=== PATIENT | female | born 1955 | race Caucasian/White ===

== ENCOUNTER 2020-01-03 11:47 | Outpatient (REF) | payer MEDICARE, MEDICAID, SELFPAY ==
[2020-01-03 13:27] LABS: Basophils Percent Auto 0.2 % (0-2); Eosinophils Percent Auto 0.5 % (0-4); Hematocrit 43.3 % (37-47); Hemoglobin 15.4 g/dl (12.0-16.0); Imm Gran Abs Auto 0.03 X10*3/uL (0.00-0.03); Imm Gran Pct Auto 0.3 % (0.0-0.4); Lymphocytes Absolute Auto 2.6 X10*3/uL (1.2-4.9); Lymphocytes Percent Auto 29.9 % (20-40); MANUAL DIFF FLAG NO; Mean Corpuscular HGB Conc 35.6 g/dl (31.0-35.0); Mean Corpuscular Hemoglobin 31.5 pg (27.0-33.0); Mean Corpuscular Volume 88.5 fL (80-98); Mean Platelet Volume 9.6 fL (9.4-12.3); Monocytes Absolute Auto 0.5 X10*3/uL (0.1-1.2); Monocytes Percent Auto 5.7 % (2-11); Neutrophils Absolute Auto 5.6 X10*3/uL (2.0-8.3); Neutrophils Percent Auto 63.4 % (45-73); Platelet Count 341 X10*3/uL (160-400); Red Blood Count 4.89 X10*6/uL (4.20-5.50); Red Cell Distribution Width 12.9 % (11.0-16.0); White Blood Count 8.8 X10*3/uL (4.8-10.8)
[2020-01-03 14:09] LABS: Alanine Aminotransferase 27 U/L (0-31); Albumin Level 4.5 g/dL (3.5-5.0); Alkaline Phosphatase 66 U/L (39-117); Anion Gap 14 (12-20); Aspartate Amino Transferase 25 U/L (5-31); Bilirubin Total 0.5 mg/dL (0.0-1.0); Blood Urea Nitrogen 16 mg/dL (9-16); Calcium 9.7 mg/dL (8.4-10.2); Carbon Dioxide 25 mmol/L (22-29); Chloride 101 mmol/L (96-108); Estimated Glomerular Filt Rate 57; Glucose Random 97 mg/dL (60-115); Iron 101 mcg/dL (30-160); Percent Iron Saturation 38 % (15-50); Potassium 3.8 mmol/l (3.3-5.1); Sodium 136 mmol/L (135-145); Total Iron Binding Capacity 269 mcg/dL (228-428); Unsaturated Iron Binding 168 ug/dL
[2020-01-03 14:24] LABS: Vitamin B12 612 pg/mL (200-900)
[2020-01-03 14:33] LABS: Ferritin 200 ng/mL (10-250); Thyroid Stimulating Hormone 0.75 uIU/mL (0.32-4.0); Vitamin D 25-OH Total 49.2 ng/mL (>30)
== END 2020-01-03 11:48 | disposition home or self-care (01) ==
LOC: HO.MANLDS 11:47
PROVIDERS: PCP Internal Medicine; Referring Provider Internal Medicine Gastroenterology; Visit Provider Internal Medicine
DX: R53.83 Other fatigue (principal)
CPT/HCPCS: 36415; 80053; 82306; 82607; 82728; 83540; 84436; 84443; 85025

== ENCOUNTER 2020-02-07 14:56 | Outpatient (REF) | payer MEDICARE, MEDICAID, SELFPAY ==
[2020-02-07 19:16] LABS: Hematocrit 40.2 % (37-47); Hemoglobin 14.5 g/dl (12.0-16.0); Mean Corpuscular HGB Conc 36.1 g/dl (31.0-35.0); Mean Corpuscular Hemoglobin 31.7 pg (27.0-33.0); Mean Platelet Volume 9.9 fL (9.4-12.3); Platelet Count 372 X10*3/uL (160-400); Red Blood Count 4.57 X10*6/uL (4.20-5.50); White Blood Count 7.1 X10*3/uL (4.8-10.8)
[2020-02-07 19:26] LABS: Alanine Aminotransferase 23 U/L (0-31); Albumin Level 4.2 g/dL (3.5-5.0); Alkaline Phosphatase 68 U/L (39-117); Anion Gap 12 (12-20); Aspartate Amino Transferase 21 U/L (5-31); Bilirubin Total 0.3 mg/dL (0.0-1.0); Blood Urea Nitrogen 20 mg/dL (9-16); Calcium 9.3 mg/dL (8.4-10.2); Carbon Dioxide 29 mmol/L (22-29); Chloride 99 mmol/L (96-108); Estimated Glomerular Filt Rate 55; Glucose Random 110 mg/dL (60-115); Iron 84 mcg/dL (30-160); Percent Iron Saturation 32 % (15-50); Potassium 3.3 mmol/l (3.3-5.1); Sodium 137 mmol/L (135-145); Total Iron Binding Capacity 262 mcg/dL (228-428); Total Protein 6.8 g/dL (6.5-8.0); Unsaturated Iron Binding 178 ug/dL
[2020-02-07 19:48] LABS: Ferritin 181 ng/mL (10-250); Free T4 (Free Thyroxine) 1.01 ng/dL (0.71-1.85); Thyroid Stimulating Hormone 1.18 uIU/mL (0.32-4.0)
[2020-02-07 20:01] LABS: Folate 14.6 ng/mL (> or = 4.0); Vitamin B12 512 pg/mL (200-900)
[2020-02-07 20:34] LABS: Erythrocyte Sedimentation Rate 4 MM/HR (0-20)
== END 2020-02-07 14:57 | disposition home or self-care (01) ==
LOC: HO.MANLDS 14:56
PROVIDERS: PCP Internal Medicine; Visit Provider Internal Medicine
DX: R53.83 Other fatigue (principal)
CPT/HCPCS: 36415; 80053; 82607; 82728; 82746; 83540; 84439; 84443; 85027; 85652

== ENCOUNTER → 2020-03-06 09:09 | Outpatient (REF) | payer MEDICARE, MEDICAID, SELFPAY ==
--- NOTE | 2020-03-06 09:30 | CA_ITS ---
Transthoracic Echocardiogram Patient (Last, First, Middle): Esme Alfonso, Gender: Female Date of : 1955 Age: 64 Procedure Date: 03/06/2020 Procedure Type: Transthoracic Echocardiogram Location: OP Height: 177.8 cm Weight: 72.58 kg BSA: 1.90 m2 Heart Rate: bpm BP: 118 / 60 mmHg Synchronous Motor Assembler: Referring MD: Neptali Amador MD Symptoms: DYSPNEA ON EXERTION R06.9 Study Quality: Fair ECG Rhythm: Sinus Conclusions: - The left ventricular systolic function is hyperdynamic. The visually estimated ejection fraction is >70%. - No obvious valvular pathology seen on this study. Findings Left Ventricle Normal left ventricular cavity size. There is mildly increased left ventricular wall thickness. The left ventricular systolic function is hyperdynamic. The visually estimated ejection fraction is >70%. There is no evidence of regional wall motion abnormalities. E/E prime ratio is between 8 and 15 consistent with indeterminate filling pressures. Evidence suggests grade I (mild) diastolic dysfunction. Right Ventricle Normal right ventricular cavity size and systolic function. Atria The left atrium is normal in size. The right atrium is normal in size. Aortic Valve There is a normal trileaflet aortic valve. There is no aortic valve stenosis. There is no aortic valve regurgitation. Mitral Valve The mitral valve appears normal. There is no mitral valve regurgitation. There is no mitral valve stenosis. Pulmonic Valve The pulmonic valve was not well visualized. Tricuspid Valve Normal tricuspid valve structure. There is trace tricuspid valve regurgitation. The pulmonary artery systolic pressure is normal. Great Vessels The aortic annulus, sinuses of valsalva, and asc aorta are normal in size. Venous The inferior vena cava is normal in size and collapses greater than 50% with inspiration. Pericardium/Pleural There is no evidence of pericardial effusion. Prior Study Comparison No significant change compared to prior study dated: 07/17/2016. Recommendations, Care & Conclusions No obvious valvular pathology seen on this study. Measurements 2D Linear Measurements IVSd: 1.32 0.6-0.9/0.6-1.0 cm LVIDd: 3.05 3.9-5.3/4.2-5.9 cm LVIDd Index: 1.61 2.4-3.2/2.2-3.1 cm/m2 LVIDs: 2.03 2.0-3.6 cm LVPWd: 1.30 0.7-1.1 cm Ao Root: 3.20 2.1-3.5 cm LA Diam: 2.60 2.7-3.8/3.0-4.0 cm LAIDs Index: 1.37 1.5-2.3 cm/m2 LV Mass: 160.07 67-162/88-224 g LV Mass Index: 84.25 43-95/49-115 g/m2 LVOT Diam: 2.30 3.0+(-)1.3 cm 2D Systolic Function EF 4C: 77.50 >55% EF 2C: 72.60 >55% Mitral Valve MV Pk E: 0.52 MV PK A: 1.24 MV Decel Time: 144.00 E/A: 0.40 E'Lateral: 5.13 E'Medial: 4.64 E/E' Med: 11.30 E/E' Lat: 10.20 PHT: 42.00 MVA PHT: 5.24 Decel Butts: 3.63 Aortic Valve AoV Pk Charan: 1.13 AoV Mn Charan: 0.74 AoV VTI: 0.20 AoV Pk Grad: 5.00 Aov Mn Grad: 3.00 JED Cont.VTI: 3.96 LVOT LVOT Pk Charan: 0.96 LVOT Mn Charan: 0.63 LVOT VTI: 0.19 LVOT Pk Grad: 4.00 LVOT Mn Grad: 2.00 LVOT Diam: 2.30 LVOT Area: 4.15 Diastolic Function MV Pk E: 0.52 MV Pk A: 1.24 E/A: 0.40 E'Medial: 4.64 E/E' Med: 11.30 E' Laterial: 5.13 E/E' Lat: 10.20 Tricuspid Valve TR Pk Charan: 2.06 TR Pk Grad: 17.00 RA Press: 3.00 RVSP: 20.00 Great Vessels Aorta Ao Root-2D: 3.20 2.0-3.7 cm Ao Asc: 3.30 2.1-3.4 cm Pulmonary Valve PV Pk Charan: 0.87 Peak PV Grad: 3.00 Updated in Other Vendor System with Status of Final Marshall Arguello MD electronically signed on 03/06/2020 12:27:18 PM with status of Final
== END ==
LOC: HO.CARD 09:09
PROVIDERS: Visit Provider Internal Medicine
DX: R06.00 Dyspnea, unspecified (principal)
CPT/HCPCS: 93306

== ENCOUNTER 2020-03-08 13:49 | Outpatient (REF) | payer MEDICARE, MEDICAID, SELFPAY ==
--- NOTE | 2020-03-08 | MR_ITS ---
MRI OF THE BRAIN WITHOUT IV CONTRAST INDICATION: New daily persistent headache. COMPARISON: None available. TECHNIQUE: Multiplanar multisequence MR imaging of the brain was obtained without IV contrast. FINDINGS: There is no hydrocephalus, extra-axial surface collection, or herniation. There is mild chronic microangiopathy. Perivascular spaces throughout the supratentorial white matter. 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 The major flow voids at the skull base are preserved. Infundibulum versus aneurysm at the left anterior cerebral artery/anterior communicating artery junction that would be better assessed with a MRA of the head. There is no acute infarct on diffusion-weighted imaging. There is no intracranial hemorrhage on the gradient recalled echo acquisition. The midline structures are normal. The cerebellar tonsils are normally positioned. The craniocervical junction is normal. Osseous marrow signal intensity is homogenous. The visualized soft tissues are unremarkable. MR/MR head/brain wo con IMPRESSION: - Infundibulum versus aneurysm at the left anterior cerebral artery/anterior communicating artery junction that would be better assessed with a MRA of the head. - No acute intracranial findings. - Mild chronic microangiopathy. 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
== END 2020-03-08 13:50 | disposition home or self-care (01) ==
LOC: HO.MRI 13:49
PROVIDERS: PCP Internal Medicine; Visit Provider Internal Medicine
DX: G44.52 New daily persistent headache (NDPH) (principal)
CPT/HCPCS: 70551

== ENCOUNTER 2020-03-24 10:48 | Outpatient (REF) | payer MEDICARE, MEDICAID, SELFPAY ==
--- NOTE | ~2020-03-24 | MR_ITS ---
EXAMINATION: MR ANGIOGRAPHY BRAIN WITHOUT CONTRAST CLINICAL INFORMATION: Possible aneurysm versus infundibulum left anterior cerebral artery circulation. COMPARISON: 03/08/2020 MRI brain. TECHNIQUE: 3-D [id number] MR angiography of the intracranial circulation was done. FINDINGS: Anterior Circulation: The intracranial internal carotid arteries are normal in caliber and smoothly contoured. The M1 and M2 segments are normal in caliber with a normal appearance to the MCA bifurcations/trifurcations bilaterally and candelabra branches. There is minimal luminal irregularity in the distal right M1 segment and in the mid to distal left M1 segment suggesting minimal atheromatous disease. The right A1 and A2 segments are patent with mild luminal irregularity in both segments. The anterior communicating artery is visualized and appears within normal limits. Note is made of a 2.5 mm outpouching of flow-related enhancement along the inferolateral aspect of the proximal left A2 segment at the junction with the A1 segment and anterior to indicating artery suggesting a small aneurysm at this location. Otherwise the left A1 and A2 segments appear unremarkable. Posterior Circulation: The V4 segments of the vertebral arteries are codominant and normal in caliber and smoothly contoured bilaterally. The basilar artery is normal in caliber with minimal luminal irregularity. A right posterior-inferior cerebellar artery is visualized as well as to anterior inferior cerebellar arteries and both superior cerebellar arteries. The P1, P2 and P3 segments of the animal pathology teacher are visualized bilaterally, with some luminal irregularity in the P2 and P3 segments. The right posterior communicating artery is visualized. The left posterior communicating artery is not well visualized. MR/MR angio head wo con IMPRESSION: 1. 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 2. No other aneurysms are identified. There are scattered regions of segmental luminal irregularity in the middle and anterior cerebral and posterior cerebral artery circulations suggesting minimal atheromatous changes.
== END 2020-03-24 10:49 | disposition home or self-care (01) ==
LOC: HO.MRI 10:48
PROVIDERS: Visit Provider Internal Medicine
DX: I67.1 Cerebral aneurysm, nonruptured (principal)
CPT/HCPCS: 70544

== ENCOUNTER 2020-05-10 09:26 | Outpatient (REF) | payer MEDICARE, MEDICAID, SELFPAY ==
--- NOTE | ~2020-05-10 | CT_ITS ---
EXAMINATION: CT ABDOMEN AND PELVIS WITH CONTRAST CLINICAL INFORMATION: Gastroenteritis and colitis COMPARISON: Previous CT of the abdomen and pelvis June 2019 TECHNIQUE: Multidetector volumetric images were obtained from the superior aspect of the liver through the pubic symphysis following administration 85 mL of Omnipaque 350 intravenous contrast. Sagittal and coronal reformatted images were obtained on the technologist's workstation. Oral contrast: Yes This CT examination was performed using dose optimization techniques as appropriate, variously including the following: *Automated exposure control *Adjustment of mA and/or kV according to patient size (this includes techniques or standardized protocols for targeted exams where dose is matched to indication/reason for exam; i.e. extremities or head) *Use of iterative reconstruction technique DLP: 710 mGy-cm FINDINGS: LUNG BASES: The visualized lung bases are clear. There is a small left posterior diaphragmatic hernia containing fat. LIVER, GALLBLADDER, AND BILIARY TREE: The liver is normal in size, shape, and attenuation. No focal hepatic lesion or biliary ductal dilatation is present. The gallbladder is unremarkable with no evidence of radiopaque gallstones, gallbladder wall thickening, or obvious pericholecystic inflammatory changes. PANCREAS: Unremarkable. SPLEEN: Unremarkable. ADRENAL GLANDS: Unremarkable. KIDNEYS AND URETERS: There are multiple left renal cortical and peripelvic cysts. The largest is a 2 x 3 cm peripelvic cyst. There is a 1.6 x 1 cm lesion in the lateral mid pole of the left kidney. Hounsfield units following IV contrast measure 90 not compatible with a simple cyst. It is uncertain whether this represents a complex cyst or solid lesion. There is a second more posterior inferior adjacent bilobed appearing cyst that measures 1.7 x 3 cm. This is Hounsfield units measure 30 without contrast also not compatible with a simple cyst. Compared with previous exams from 2019 and 2015 these vary in size and attenuation which would favor complex cysts. There are small subcentimeter right renal cysts. BLADDER: Not optimally distended and not well evaluated. GASTROINTESTINAL TRACT: There is stool throughout the colon questionable for constipation. Wall and large bowel is otherwise unremarkable. No evidence of colitis or enteritis is seen. The appendix is not identified. The stomach is unremarkable ABDOMINAL WALL: No significant hernia is appreciated. LYMPH NODES: Normal. VASCULAR: Unremarkable. PELVIC VISCERA: The uterus is been removed. No pelvic mass is seen. OSSEOUS STRUCTURES: Unremarkable. CT/CT abdomen pelvis w con IMPRESSION: No evidence of colitis or enteritis. Stool throughout the colon questionable for constipation. Bilateral renal cysts, left greater than right. Two left renal lesions not compatible with simple cysts. These can be seen on prior exams from 2015 and 2019 and vary in attenuation which would favor a complex cyst. This could be further evaluated with repeat CT or MRI of the kidneys with and without contrast. This could also be evaluated with ultrasound, however this may be difficult due to the multiple left renal cysts.
[2020-05-10 10:48] LABS: Alanine Aminotransferase 22 U/L (0-31); Albumin Level 4.3 g/dL (3.5-5.0); Alkaline Phosphatase 63 U/L (39-117); Anion Gap 16 (12-20); Aspartate Amino Transferase 22 U/L (5-31); Bilirubin Total 0.8 mg/dL (0.0-1.0); Blood Urea Nitrogen 25 mg/dL (9-16); Calcium 9.3 mg/dL (8.4-10.2); Carbon Dioxide 26 mmol/L (22-29); Chloride 102 mmol/L (96-108); Estimated Glomerular Filt Rate 54; Glucose Random 95 mg/dL (60-115); Potassium 3.5 mmol/L (3.3-5.1); Sodium 140 mmol/L (135-145); Total Protein 6.8 g/dL (6.5-8.0)
[2020-05-10] MEDS: Barium Sulfate Oral (Vanilla) 450 ML ORAL.SUSP 900 ML PO (12:53)
== END 2020-05-10 09:27 | disposition home or self-care (01) ==
LOC: HO.CT 09:26
PROVIDERS: PCP Internal Medicine; Visit Provider Physician Assistant
DX: K52.9 Noninfective gastroenteritis and colitis, unspecified (principal)
CPT/HCPCS: 36415; 74177; 80053; Q9967

== ENCOUNTER 2020-08-01 10:56 | Outpatient (REF) | payer MEDICARE, MEDICAID, SELFPAY ==
--- NOTE | ~2020-08-01 | CT_ITS ---
EXAMINATION: CT ABDOMEN AND PELVIS WITHOUT AND WITH CONTRAST CLINICAL INFORMATION: Abdominal discomfort, question colitis or diverticulitis or pancreatitis. COMPARISON: None TECHNIQUE: Multidetector volumetric imaging was performed of the abdomen and pelvis before and after the IV administration of 85 mL of Omnipaque 350 intravenous contrast. Sagittal and coronal reformatted images were obtained on the technologist's workstation. This CT examination was performed using dose optimization techniques as appropriate, variously including the following: *Automated exposure control *Adjustment of mA and/or kV according to patient size (this includes techniques or standardized protocols for targeted exams where dose is matched to indication/reason for exam; i.e. extremities or head) *Use of iterative reconstruction technique DLP: 814 mGy-cm FINDINGS: LUNG BASES: There is minimal atelectatic changes in both lung bases. The heart size is normal. LIVER, GALLBLADDER, AND BILIARY TREE: The liver is normal in size, shape, and attenuation. No focal hepatic lesion or biliary ductal dilatation is present. The gallbladder is unremarkable with no evidence of radiopaque gallstones, gallbladder wall thickening, or obvious pericholecystic inflammatory changes. PANCREAS: Unremarkable. SPLEEN: Unremarkable. ADRENAL GLANDS: Unremarkable. KIDNEYS AND URETERS: The kidneys are normal in size, shape, and attenuation. No hydronephrosis, hydroureter, or calculi seen. No perinephric stranding. There are bilateral renal cysts. There are peripelvic and exophytic cysts in the left kidney. On the precontrast, there is a hypodense 1.5 cm cyst midpole left kidney image 24/3. Postcontrast, it measures 93 Hounsfield units. It is consistent with a complex cyst. BLADDER: Unremarkable. GASTROINTESTINAL TRACT: There is moderate scattered stool and gas seen throughout the colon without any significant distention. The small bowel loops are normal caliber. The appendix is not visualized. ABDOMINAL WALL: No significant hernia is appreciated. LYMPH NODES: There are small shotty left para-aortic lymph nodes. The largest triangular-shaped lymph node measures 1.4 cm axial image 24/4. VASCULAR: Unremarkable. PELVIC VISCERA: There is diffuse sigmoid diverticulosis without mural thickening or pericolic fat stranding. No free air or free fluid seen. OSSEOUS STRUCTURES: No lytic or sclerotic process seen. There is a disc bulge osteophyte complex L2-L3 disc level slightly eccentric to the left. CT/CT abdomen pelvis wo/w con IMPRESSION: No acute intra-abdominal process seen. Sigmoid diverticulosis without diverticulitis. Mild constipation. Bilateral renal cysts. There is a hyperdense enhancing cyst midpole cortex laterally left kidney likely a complex cyst.
[2020-08-01 12:42] LABS: Alanine Aminotransferase 17 U/L (0-31); Albumin Level 4.2 g/dL (3.5-5.0); Alkaline Phosphatase 72 U/L (39-117); Anion Gap 17 (12-20); Aspartate Amino Transferase 18 U/L (5-31); Bilirubin Total 0.5 mg/dL (0.0-1.0); Blood Urea Nitrogen 16 mg/dL (9-16); Calcium 9.3 mg/dL (8.4-10.2); Carbon Dioxide 21 mmol/L (22-29); Chloride 104 mmol/L (96-108); Estimated Glomerular Filt Rate 55; Glucose Random 83 mg/dL (60-115); Potassium 3.8 mmol/L (3.3-5.1); Sodium 138 mmol/L (135-145); Total Protein 6.8 g/dL (6.5-8.0)
[2020-08-01] MEDS: iohexoL 350 MG/ML 100 ML INFUS..BTL 85 ML IV (14:41)
== END 2020-08-01 10:57 | disposition home or self-care (01) ==
LOC: HO.CT 10:56
PROVIDERS: PCP Internal Medicine; Visit Provider Internal Medicine
DX: R10.9 Unspecified abdominal pain (principal); K52.9 Noninfective gastroenteritis and colitis, unspecified
CPT/HCPCS: 36415; 74178; 80053; Q9967

== ENCOUNTER 2020-11-11 19:04 | Emergency (ER) | payer MEDICARE, MEDICAID, SELFPAY ==
[2020-11-11 19:20] VITALS: BP 132/94; PULSE 91; RESP 18; TEMP 36.7; O2SAT 94; BMI 22.3
[2020-11-11 19:38] LABS: Appearance Urine CLOUDY; Color Urine YELLOW; Glucose Urine UA NEG (NEG); Leukocyte Esterase Urine 3+ (NEG); Nitrite Urine NEG (NEG); PH 6.5 (5.0-8.0); Specific Gravity - Urine 1.015 (1.005-1.025); UACC Culture Trigger YES; Urine Blood 3+ (NEG); Urine Ketones NEG (NEG); Urine Protein 2+ MG/DL (NEG-TRACE)
--- NOTE | 2020-11-11 19:40 | ED.FEMALEGU ---
HPI - Female Genitourinary General Chief complaint: Urogenital-Female Stated complaint: ?UTI Time Seen by Provider: 11/11/20 19:40 Source: patient Mode of arrival: ambulatory Limitations: no limitations History of Present Illness HPI Narrative: Patient complaining of dysuria suprapubic pain frequency last 24 hours when she wiped she noticed blood-tinged no fever no chills no nausea no vomiting history of UTI in the past but not recently no history Related Data Previous Rx's Medication Instructions Recorded cefuroxime axetil 500 mg tablet 500 mg PO BID 7 Days #14 tab 11/11/20 phenazopyridine 200 mg tablet 200 mg PO TID 2 Days #5 tab 11/11/20 (Pyridium) Allergies Allergy/AdvReac Type Severity Reaction Status Date / Time No Known Allergies Allergy Verified 11/11/20 19:20 [No Known Allergies*] Review of Systems Review of Systems: Yes all other systems are reviewed and are negative PMFSH Past Medical History Medical History Anxiety Brain aneurysm Depression Hypertension Kidney cysts UTI (urinary tract infection) Surgical History Hx of tonsillectomy Social History Social History Advance Directives: No Advance Directives Information Provided: No Physical Exam Vital Signs: Vital Signs: Last Vital Signs Temp 98.0 F 11/11/20 19:20 Pulse 91 11/11/20 19:20 Resp 18 11/11/20 19:20 BP 132/94 H 11/11/20 19:20 Pulse Ox 94 11/11/20 19:20 Body Mass Index 22.3 Appearance: Alert. Oriented X3. No acute distress. ENT: Pharynx normal. Oral Mucosa moist Neck: Normal inspection. Neck supple. CVS: Normal heart rate and rhythm. Respiratory: No respiratory distress. Equal air entry bilateral, Abdomen: Soft and nontender. Bowel sounds are present, no mass palpable, no CVA tenderness Skin: Skin warm and dry. Normal skin color. Normal skin turgor. Neuro: Oriented X 3. MDM - Female Genitourinary Differential Diagnosis Differential diagnosis: Likely urinary tract infection Lab Data Attestation: I reviewed the patient's lab results. Labs: Lab Results 11/11/20 Range/Units 19:32 Urine Color YELLOW Urine Appearance CLOUDY Urine pH 6.5 (5.0-8.0) Ur Specific [place] 1.015 (1.005-1.025) Urine Protein 2+ H (NEG-TRACE) MG/DL Urine Glucose (UA) NEG (NEG) MG/DL Urine Ketones NEG (NEG) MG/DL Urine Blood 3+ H (NEG) Urine Nitrite NEG (NEG) Ur Leukocyte Esterase 3+ H (NEG) Urine RBC 76-150 H (0) /HPF Urine WBC 76-150 H (0-4) /HPF Ur Squamous Epith Cells TRACE /LPF Urine Bacteria NONE /LPF Discharge Plan Discharge Clinical Impression: Urinary tract infection Qualifiers: Urinary tract infection type: acute cystitis Hematuria presence: with hematuria Qualified Code(s): N30.01 - Acute cystitis with hematuria Patient Disposition: Home, Self-Care Instructions: Urinary Tract Infection in Women (ED) Additional Instructions: Drink Plenty of fluids take antibiotic as prescribed Report to PCP/ER if high fever/vomiting/flank pain Prescriptions: New cefuroxime axetil 500 mg tablet 500 mg PO BID 7 Days Qty: 14 RF: 0 phenazopyridine [Pyridium] 200 mg tablet 200 mg PO TID 2 Days Qty: 5 RF: 0
[2020-11-11 19:54] LABS: Squamous Epithelial Cell Urine TRACE /LPF
[2020-11-11] MEDS: Phenazopyridine HCL 200 MG TABLET PO (20:20)
== END 2020-11-11 20:23 | disposition home or self-care (01) ==
PROVIDERS: Emergency Provider Internal Medicine; PCP Internal Medicine
DX: N30.01 Acute cystitis with hematuria (principal); R30.0 Dysuria; Z79.899 Other long term (current) drug therapy
CPT/HCPCS: 81001; 87086; 87088; 87186; 99283

== ENCOUNTER 2021-06-19 14:43 | Emergency (ER) | payer MEDICARE, MEDICAID, SELFPAY ==
[2021-06-19 15:28] VITALS: BP 138/81; PULSE 97; RESP 18; TEMP 37.3; O2SAT 96; BMI 22.3
[2021-06-19 16:09] LABS: MANUAL DIFF FLAG NO
[2021-06-19 16:13] LABS: Appearance Urine HAZY; Color Urine YELLOW; Glucose Urine UA NEG (NEG); Leukocyte Esterase Urine 3+ (NEG); Nitrite Urine NEG (NEG); UACC Culture Trigger YES; Urine Blood 3+ (NEG); Urine Ketones NEG (NEG); Urine Protein TRACE MG/DL (NEG-TRACE)
[2021-06-19 16:14] LABS: Basophils Percent Auto 0.1 % (0-2); Eosinophils Absolute Auto 0.1 X10*3/uL (0.0-0.4); Eosinophils Percent Auto 0.8 % (0-4); Hematocrit 40.6 % (37.0-47.0); Hemoglobin 14.4 g/dl (12.0-16.0); Imm Gran Abs Auto 0.03 X10*3/uL (0.00-0.03); Imm Gran Pct Auto 0.3 % (0.0-0.4); Lymphocytes Absolute Auto 2.4 X10*3/uL (1.2-4.9); Lymphocytes Percent Auto 26.6 % (20-40); Mean Corpuscular HGB Conc 35.5 g/dl (31.0-35.0); Mean Corpuscular Hemoglobin 30.9 pg (27.0-33.0); Mean Corpuscular Volume 87.1 fL (80.0-98.0); Monocytes Absolute Auto 0.7 X10*3/uL (0.1-1.2); Monocytes Percent Auto 7.7 % (2-11); Neutrophils Absolute Auto 5.9 x10*3/uL (2.0-8.3); Neutrophils Percent Auto 64.5 % (45-73); Platelet Count 331 X10*3/uL (160-400); Red Blood Count 4.66 X10*6/uL (4.20-5.50); Red Cell Distribution Width 13.4 % (11.0-16.0); White Blood Count 9.1 X10*3/uL (4.8-10.8)
[2021-06-19 16:22] LABS: Bacteria Urine 1+ /LPF; Squamous Epithelial Cell Urine 1+ /LPF; WBC Urine TNTC /HPF (0-4)
[2021-06-19 16:24] LABS: Anion Gap 12 (12-20); Blood Urea Nitrogen 18 mg/dL (9-16); Calcium 9.7 mg/dL (8.4-10.2); Carbon Dioxide 29 mmol/L (22-29); Chloride 103 mmol/L (96-108); Creatinine Clr Calc Pharmacy 52.5; Estimated Glomerular Filt Rate 47; Glucose Random 111 mg/dL (60-115); Potassium 3.6 mmol/L (3.3-5.1); Sodium 140 mmol/L (135-145)
--- NOTE | 2021-06-19 20:44 | ED.FEMALEGU ---
HPI - Female Genitourinary General Chief complaint: Urogenital-Female Stated complaint: UTI Time Seen by Provider: 06/19/21 18:26 Source: patient Mode of arrival: ambulatory Limitations: no limitations History of Present Illness HPI Narrative: 65 y/o female with history of recurrent UTIs presents to the ER with acute onset of burning on urination that started today. She also has urinary frequency and urgency, bladder pain and subjective fever today. No nausea or vomiting. She has been drinking cranberry juice and taking tylenol today with minimal relief. She denies any back pain. MD elicited complaint: dysuria and UTI Pertinent past history: recurrent UTIs Onset (ago): hour(s) Location of symptoms: suprapubic Severity: moderate Female Urogenital Radiation: Suprapubic Severity scale (1-10): 6 Quality of pain: burning Consistency: intermittent Vaginal discharge: none Vaginal bleeding: none Urinary symptoms: Dysuria, Urgency, Frequency and Foul Smelling Urine Exacerbating factors: urination Relieving factors: none Associated symptoms: abdominal pain and fever Treatment prior to arrival: none Sexual activity: No Patient : No Related Data Previous Rx's Medication Instructions Recorded cefuroxime axetil 500 mg tablet 500 mg PO BID 7 Days #14 tab 11/11/20 phenazopyridine 200 mg tablet 200 mg PO TID 2 Days #5 tab 11/11/20 (Pyridium) cefuroxime axetil 500 mg tablet 500 mg PO BID 7 Days #14 tab 06/19/21 phenazopyridine 100 mg tablet 100 mg PO TID PRN #6 tab 06/19/21 (Pyridium) Allergies Allergy/AdvReac Type Severity Reaction Status Date / Time No Known Allergies Allergy Verified 06/19/21 15:27 [No Known Allergies*] Review of Systems Review of Systems: Constitutional: No Fever, No Chills Cardiovascular: No Chest Pain, No SOB Respiratory: No Cough, No Sputum Gastrointestinal: No Nausea, No Vomiting, No Diarrhea, + abdominal Pain Genitourinary: + Dysuria, + Urinary Frequency, No Hematuria Musculoskeletal: No joint pain, No Myalgias Skin: No Skin Lesions, No rash Heme/Lymph: No Lymphadenopathy PMFSH Past Medical History Medical History Anxiety Brain aneurysm Depression Hypertension Kidney cysts UTI (urinary tract infection) Surgical History Hx of tonsillectomy Social History Social History Advance Directives: No Advance Directives Information Provided: No Physical Exam Vital Signs: Vital Signs: Last Vital Signs Temp 99.2 F 06/19/21 15:28 Pulse 97 06/19/21 15:28 Resp 18 06/19/21 15:28 BP 138/81 06/19/21 15:28 Pulse Ox 96 06/19/21 15:28 BMI result Body Mass Index 22.3 Appearance: Alert. Oriented X3. No acute distress. HEENT: normal inspection CVS: Normal heart rate and rhythm. Pulses normal. Respiratory: No respiratory distress. Abd: soft, mild suprapubic tenderness, no rebound or guarding. normal BS. pelvic deferred Skin: Skin warm and dry. Normal skin color. Normal skin turgor. No rashes. Extremities: normal inspection x4. Neuro: Oriented X 3. Grossly normal, nonfocal Course Course Course Narrative: 65-year-old female with history recurrent UTIs presents to the ER for evaluation of dysuria, urgency, frequency that started today. Lab work reveals no leukocytosis. He UA is grossly positive for infection. She has history E coli sensitive to self low sports. Will treat with Ceftin and Pyridium. Stable for discharge home with p.o. antibiotics and outpatient follow-up. Patient agrees with plan. MDM - Female Genitourinary Lab Data Result diagrams: 06/19/21 16:05 06/19/21 16:05 Labs: Lab Results 06/19/21 06/19/21 06/19/21 Range/Units 16:05 16:05 16:05 WBC 9.1 (4.8-10.8) X10*3/uL RBC 4.66 (4.20-5.50) X10*6/uL Hgb 14.4 (12.0-16.0) g/dl Hct 40.6 (37.0-47.0) % MCV 87.1 (80.0-98.0) fL MCH 30.9 (27.0-33.0) pg MCHC 35.5 H (31.0-35.0) g/dl RDW 13.4 (11.0-16.0) % Plt Count 331 (160-400) X10*3/uL MPV 9.0 L (9.4-12.3) fL Immature Gran % (Auto) 0.3 (0.0-0.4) % Neut % (Auto) 64.5 (45-73) % Lymph % (Auto) 26.6 (20-40) % [place] % (Auto) 7.7 (2-11) % Eos % (Auto) 0.8 (0-4) % Baso % (Auto) 0.1 (0-2) % Lymph # (Auto) 2.4 (1.2-4.9) X10*3/uL [place] # (Auto) 0.7 (0.1-1.2) X10*3/uL Eos # (Auto) 0.1 (0.0-0.4) X10*3/uL Baso # (Auto) 0.0 (0.0-0.2) X10*3/uL Abs Immat Gran (auto) 0.03 (0.00-0.03) X10*3/uL Absolute Neuts (auto) 5.9 (2.0-8.3) x10*3/uL Absolute Nucleated RBC 0.000 (0.0-0.012) X10*3/uL Nucleated RBC % (auto) 0.0 (0.0-0.2) /100WBC Sodium 140 (135-145) mmol/L Potassium 3.6 (3.3-5.1) mmol/L Chloride 103 (96-108) mmol/L Carbon Dioxide 29 (22-29) mmol/L Anion Gap 12 (12-20) BUN 18 H (9-16) mg/dL Creatinine 1.16 (0.5-1.4) mg/dL Estim Creat Clear Calc 52.5 Estimated GFR 47 Random Glucose 111 (60-115) mg/dL Calcium 9.7 (8.4-10.2) mg/dL Urine Color YELLOW Urine Appearance HAZY Urine pH 6.0 (5.0-8.0) Ur Specific [place] 1.010 (1.005-1.025) Urine Protein TRACE (NEG-TRACE) MG/DL Urine Glucose (UA) NEG (NEG) MG/DL Urine Ketones NEG (NEG) MG/DL Urine Blood 3+ H (NEG) Urine Nitrite NEG (NEG) Ur Leukocyte Esterase 3+ H (NEG) Urine RBC 15-29 H (0) /HPF Urine WBC TNTC H (0-4) /HPF Ur Squamous Epith Cells 1+ /LPF Urine Bacteria 1+ /LPF Discharge Plan Discharge Clinical Impression: Urinary tract infection Patient Disposition: Home, Self-Care Instructions: Urinary Tract Infection in Older Adults (ED) Additional Instructions: Take the prescribed antibiotic as directed, complete the entire course Drink plenty of water and stay hydrate Take the prescribed Pyridium as needed for bladder pain - this will cause your urine to turn an orange color, that is normal If you develop new or worsening symptoms call 911 or come back to the ER for further evaluation. Prescriptions: New cefuroxime axetil 500 mg tablet 500 mg PO BID 7 Days Qty: 14 0RF phenazopyridine [Pyridium] 100 mg tablet 100 mg PO TID PRN (Reason: pain) Qty: 6 0RF No Action cefuroxime axetil 500 mg tablet 500 mg PO BID 7 Days Qty: 14 0RF phenazopyridine [Pyridium] 200 mg tablet 200 mg PO TID 2 Days Qty: 5 0RF Interventions: LWBS Worksheet Last Done: 06/19/21 18:36
[2021-06-19] MEDS: Phenazopyridine HCL 100 MG TABLET PO (20:52)
== END 2021-06-19 21:22 | disposition home or self-care (01) ==
PROVIDERS: Emergency Medicine; Emergency Provider Emergency Medicine; PCP Internal Medicine
DX: N39.0 Urinary tract infection, site not specified (principal); R30.0 Dysuria; R39.15 Urgency of urination; Z79.899 Other long term (current) drug therapy
CPT/HCPCS: 36415; 80048; 81001; 85025; 87086; 99283

== ENCOUNTER 2021-11-06 10:14 | Outpatient (REF) | payer MEDICARE, MEDICAID, SELFPAY ==
[2021-11-06 11:36] LABS: Creatinine Urine 84.58 mg/dL; Total Protein Urine Random < 7 mg/dL (<12)
== END 2021-11-06 10:15 | disposition home or self-care (01) ==
LOC: HO.LAB 10:14
PROVIDERS: PCP Internal Medicine; Visit Provider Internal Medicine Nephrology
DX: N28.1 Cyst of kidney, acquired (principal); N18.2 Chronic kidney disease, stage 2 (mild)
CPT/HCPCS: 84156

== ENCOUNTER 2022-09-01 12:13 | Emergency (ER) | payer MEDICARE, MEDICAID, SELFPAY ==
--- NOTE | ~2022-09-01 | XR_ITS ---
EXAMINATION: XR CHEST CLINICAL INFORMATION: Chest pain. COMPARISON: 03/06/2017 chest radiographs. TECHNIQUE: Frontal view of the chest was obtained. FINDINGS: No significant abnormality is noted involving the heart, lungs, mediastinum, bony thorax or soft tissues. XR/XR chest 1V IMPRESSION: No acute cardiopulmonary process.
--- NOTE | 2022-09-01 12:15 | ECG_ITS ---
Test Reason : CHEST PAIN Blood Pressure : / mmHG Vent. Rate : 072 BPM Atrial Rate : 072 BPM P-R Int : 186 ms QRS Dur : 092 ms QT Int : 406 ms P-R-T Axes : 049 048 070 degrees QTc Int : 444 ms Poor data quality, interpretation may be adversely affected Normal sinus rhythm Nonspecific ST abnormality Abnormal ECG When compared with ECG of 04-JUL-2019 00:42, No significant change was found Referred By: Serena Villareal Electronically Signed By:Rasta Herr
[2022-09-01 12:24] VITALS: BP 136/85; BP 148/96; PULSE 73; PULSE 84; RESP 18; TEMP 36.9; O2SAT 93; O2SAT 97; BMI 23.0
[2022-09-01 12:34] VITALS: O2SAT 96
--- NOTE | 2022-09-01 12:38 | PC.NURSE ---
pt a&ox3. skin warm pink and dry. respirations even and unlabored, lung sounds clear bilaterally. pt reports epigastric pain after eating that went into her chest, her left jaw and down her right arm. pt took aspirin per doctor request before ambulance arrived, pain subsided. no nausea or vomiting reported. pt now reports no pain. normal sinus on tele.
--- NOTE | 2022-09-01 12:41 | ED_ITS ---
HPI - Chest Pain General Chief Complaint: Chest Pain Stated Complaint: CHEST TO JAW PAIN X1 HR,ASA GIVEN PER EMS Time Seen by Provider: 09/01/22 12:14 Source: patient Mode of arrival: ambulatory History of Present Illness HPI narrative: 66-year-old female who arrives via EMS with burning chest pain that started while she was lying back on the couch reading after having had breakfast and states that the burning sensation radiated up into her left neck and then a crossed and down her right arm without associated headache, dizziness, nona phoresis, nausea, shortness of breath. Patient then states that pain resolved once she stood up and went to the bathroom and has not returned. Patient has no diagnosed medical conditions currently and remains asymptomatic at this time. She denies any recent fever, chills, nausea, vomiting, changes in medications and denies any dysuria. Related Data Previous Rx's Medication Instructions Recorded cefuroxime axetil 500 mg tablet 500 mg PO BID 7 days #14 tabs 11/11/20 phenazopyridine 200 mg tablet 200 mg PO TID pain 2 days #5 tabs 11/11/20 (Pyridium) cefuroxime axetil 500 mg tablet 500 mg PO BID 7 days #14 tabs 06/19/21 phenazopyridine 100 mg tablet 100 mg PO TID PRN pain 6 doses #6 06/19/21 (Pyridium) tabs Allergies Allergy/AdvReac Type Severity Reaction Status Date / Time No Known Allergies Allergy Verified 09/01/22 12:33 [No Known Allergies*] Review of Systems Review of Systems: Pertinent positives and negatives as stated in HPI [facility] Past Medical History Source: nursing notes reviewed Medical History Anxiety Brain aneurysm Depression Hypertension Kidney cysts UTI (urinary tract infection) Surgical History Hx of tonsillectomy Social History Social History Alcohol intake: current Alcohol intake frequency: a few times a week Smoked in Last 30 Days: Yes Use of substances other than those prescribed or required for medical reasons: No Advance Directives: No Advance Directives Information Provided: No Physical Exam Vital Signs: Vital Signs: Last Vital Signs Temp 98.9 F 09/01/22 15:52 Pulse 65 09/01/22 15:52 Resp 13 09/01/22 15:52 BP 141/91 H 09/01/22 15:52 Pulse Ox 95 09/01/22 15:52 O2 Del Method Room Air 09/01/22 15:52 BMI result Body Mass Index 23.0 VITAL SIGNS: Reviewed. GENERAL: Well developed, well nourished, in no acute distress. HEAD: Normocephalic/atraumatic EYES: PERRLA, EOMI EARS: Ext canals without abnormality NOSE: Nares patent bilateral OROPHARYNX: no oral lesions noted, posterior pharynx clear s NECK: Supple, no adenopathy LUNGS: Normal breath sounds. No adventitious sounds or accessory muscle use. SpO2<96> CARDIOVASCULAR: Regular rate and rhythm without noted murmurs, no JVD or lower e xtremity edema. ABDOMEN: Soft, non-tender, non-distended with bowel sounds. MUSCULOSKELETAL: No tenderness, deformities, or effusions noted on gross inspection. EXTREMITIES: No cyanosis, clubbing or edema. SKIN: Inspection of the skin reveals no rashes NEUROLOGIC: Alert and oriented x 4. Strength and sensation to light touch were grossly intact x 4. Medical Decision Making Medical Decision Making MDM Narrative: 66-year-old female with history and clinical presentation, DDX: Acid reflux, l ess likely felt to be ACS or pneumonia. I reviewed all investigations, EKG is not ischemic, chest x-ray no pneumonia, no leukocytosis or left shift, no thrombocytopenia or anemia. Chemistry with flat troponins and otherwise grossly within normal limits. Patient was given all results and discharged home in stable condition. Differential Diagnosis Differential Diagnoses: The differential diagnosis associated with the presentation includes Please see the discussion above Admission/Observation Consideration of admission/observation: Escalation of care including admission/observation considered Please see the discussion above Lab Data MDM Lab Attestation statement: I reviewed the patient's lab results. Please see the discussion above 09/01/22 12:45 09/01/22 12:45 Labs: Lab Results 09/01/22 09/01/22 09/01/22 Range/Units 12:45 12:45 12:45 WBC 5.4 (4.8-10.8) X10*3/uL RBC 4.55 (4.20-5.50) X10*6/uL Hgb 14.2 (12.0-16.0) g/dl Hct 39.4 (37.0-47.0) % MCV 86.6 (80.0-98.0) fL MCH 31.2 (27.0-33.0) pg MCHC 36.0 H (31.0-35.0) g/dl RDW 13.0 (11.0-16.0) % Plt Count 306 (160-400) X10*3/uL MPV 8.9 L (9.4-12.3) fL Immature Gran % (Auto) 0.2 (0.0-0.4) % Neut % (Auto) 54.0 (45-73) % Lymph % (Auto) 33.8 (20-40) % [place] % (Auto) 10.3 (2-11) % Eos % (Auto) 1.3 (0-4) % Baso % (Auto) 0.4 (0-2) % Lymph # (Auto) 1.8 (1.2-4.9) X10*3/uL [place] # (Auto) 0.6 (0.1-1.2) X10*3/uL Eos # (Auto) 0.1 (0.0-0.4) X10*3/uL Baso # (Auto) 0.0 (0.0-0.2) X10*3/uL Abs Immat Gran (auto) 0.01 (0.00-0.03) X10*3/uL Absolute Neuts (auto) 2.9 (2.0-8.3) x10*3/uL Absolute Nucleated RBC 0.000 (0.0-0.012) X10*3/uL Nucleated RBC % (auto) 0.0 (0.0-0.2) /100WBC PT 10.4 (10.0-13.1) SEC INR 0.9 (0.9-1.1) Sodium 139 (135-145) mmol/L Potassium 3.3 (3.3-5.1) mmol/L Chloride 104 (96-108) mmol/L Carbon Dioxide 24 (22-29) mmol/L Anion Gap 14 (12-20) BUN 17 H (9-16) mg/dL Creatinine 1.01 (0.5-1.4) mg/dL Estim Creat Clear Calc 59.5 Estimated GFR 55 Random Glucose 139 H (60-115) mg/dL Calcium 9.7 (8.4-10.2) mg/dL Total Bilirubin 0.4 (0.0-1.0) mg/dL AST 16 (5-31) U/L ALT 14 (0-31) U/L Alkaline Phosphatase 52 (39-117) U/L Troponin I High Sens (<3.5-17.0) ng/L Total Protein 6.3 L (6.5-8.0) g/dL Albumin 3.8 (3.5-5.0) g/dL 09/01/22 09/01/22 Range/Units 12:45 15:25 WBC (4.8-10.8) X10*3/uL RBC (4.20-5.50) X10*6/uL Hgb (12.0-16.0) g/dl Hct (37.0-47.0) % MCV (80.0-98.0) fL MCH (27.0-33.0) pg MCHC (31.0-35.0) g/dl RDW (11.0-16.0) % Plt Count (160-400) X10*3/uL MPV (9.4-12.3) fL Immature Gran % (Auto) (0.0-0.4) % Neut % (Auto) (45-73) % Lymph % (Auto) (20-40) % [place] % (Auto) (2-11) % Eos % (Auto) (0-4) % Baso % (Auto) (0-2) % Lymph # (Auto) (1.2-4.9) X10*3/uL [place] # (Auto) (0.1-1.2) X10*3/uL Eos # (Auto) (0.0-0.4) X10*3/uL Baso # (Auto) (0.0-0.2) X10*3/uL Abs Immat Gran (auto) (0.00-0.03) X10*3/uL Absolute Neuts (auto) (2.0-8.3) x10*3/uL Absolute Nucleated RBC (0.0-0.012) X10*3/uL Nucleated RBC % (auto) (0.0-0.2) /100WBC PT (10.0-13.1) SEC INR (0.9-1.1) Sodium (135-145) mmol/L Potassium (3.3-5.1) mmol/L Chloride (96-108) mmol/L Carbon Dioxide (22-29) mmol/L Anion Gap (12-20) BUN (9-16) mg/dL Creatinine (0.5-1.4) mg/dL Estim Creat Clear Calc Estimated GFR Random Glucose (60-115) mg/dL Calcium (8.4-10.2) mg/dL Total Bilirubin (0.0-1.0) mg/dL AST (5-31) U/L ALT (0-31) U/L Alkaline Phosphatase (39-117) U/L Troponin I High Sens < 2.7 < 2.7 (<3.5-17.0) ng/L Total Protein (6.5-8.0) g/dL Albumin (3.5-5.0) g/dL Independent Interpretation I performed an independent interpretation of an: EKG Interpretation: Normal sinus rhythm, HR-72, no STEMI, MN/QRS/QTC is within normal limits. Radiology Impression Radiologist Impression: No pneumonia, otherwise my interpretation is in agreement with radiology's impression External Record Review External record reviewed: Outpatient record and Prior outpatient labs Discharge Plan Discharge Clinical Impression: Atypical chest pain, GERD (gastroesophageal reflux disease) Patient Disposition: Home, Self-Care Instructions: Diet for Stomach Ulcers and Gastritis (ED), Gastroesophageal Reflux Disease (ED), Noncardiac Chest Pain (ED) Additional Instructions: 1. Resume all home medications as prescribed. 2. Follow-up with your primary care provider on Friday morning. Return to the ER for any worsening symptoms. Prescriptions: No Action cefuroxime axetil 500 mg tablet 500 mg PO BID 7 Days Qty: 14 0RF phenazopyridine [Pyridium] 200 mg tablet 200 mg PO TID 2 Days Qty: 5 0RF cefuroxime axetil 500 mg tablet 500 mg PO BID 7 Days Qty: 14 0RF phenazopyridine [Pyridium] 100 mg tablet 100 mg PO TID PRN (Reason: pain) Qty: 6 0RF
[2022-09-01 12:53] LABS: Basophils Percent Auto 0.4 % (0-2); Eosinophils Absolute Auto 0.1 X10*3/uL (0.0-0.4); Eosinophils Percent Auto 1.3 % (0-4); Hematocrit 39.4 % (37.0-47.0); Hemoglobin 14.2 g/dl (12.0-16.0); Imm Gran Abs Auto 0.01 X10*3/uL (0.00-0.03); Imm Gran Pct Auto 0.2 % (0.0-0.4); Lymphocytes Absolute Auto 1.8 X10*3/uL (1.2-4.9); Lymphocytes Percent Auto 33.8 % (20-40); MANUAL DIFF FLAG NO; Mean Corpuscular Hemoglobin 31.2 pg (27.0-33.0); Mean Corpuscular Volume 86.6 fL (80.0-98.0); Mean Platelet Volume 8.9 fL (9.4-12.3); Monocytes Absolute Auto 0.6 X10*3/uL (0.1-1.2); Monocytes Percent Auto 10.3 % (2-11); Neutrophils Absolute Auto 2.9 x10*3/uL (2.0-8.3); Platelet Count 306 X10*3/uL (160-400); Red Blood Count 4.55 X10*6/uL (4.20-5.50); White Blood Count 5.4 X10*3/uL (4.8-10.8)
[2022-09-01 13:00] LABS: INTERNATIONAL NORM RATIO 0.9 (0.9-1.1); Prothrombin Time 10.4 SEC (10.0-13.1)
[2022-09-01 13:23] LABS: Alanine Aminotransferase 14 U/L (0-31); Albumin Level 3.8 g/dL (3.5-5.0); Alkaline Phosphatase 52 U/L (39-117); Anion Gap 14 (12-20); Aspartate Amino Transferase 16 U/L (5-31); Blood Urea Nitrogen 17 mg/dL (9-16); Calcium 9.7 mg/dL (8.4-10.2); Carbon Dioxide 24 mmol/L (22-29); Chloride 104 mmol/L (96-108); Creatinine Clr Calc Pharmacy 59.5; Estimated Glomerular Filt Rate 55; Glucose Random 139 mg/dL (60-115); Potassium 3.3 mmol/L (3.3-5.1); Sodium 139 mmol/L (135-145); Total Protein 6.3 g/dL (6.5-8.0); Troponin-I High Sensitivity < 2.7 ng/L (<3.5-17.0)
[2022-09-01 13:37] LABS: Bilirubin Total 0.4 mg/dL (0.0-1.0)
[2022-09-01 14:40] VITALS: BP 140/89; PULSE 65; RESP 14; TEMP 36.7; O2SAT 96
[2022-09-01 15:52] VITALS: BP 141/91; PULSE 65; RESP 13; TEMP 37.2; O2SAT 95
[2022-09-01 15:58] LABS: Troponin-I High Sensitivity < 2.7 ng/L (<3.5-17.0)
== END 2022-09-01 16:23 | disposition home or self-care (01) ==
PROVIDERS: Emergency Provider Student in an Organized Health Care Education/Training Program
DX: R07.89 Other chest pain (principal); K21.9 Gastro-esophageal reflux disease without esophagitis; Z79.899 Other long term (current) drug therapy
CPT/HCPCS: 36415; 71045; 80053; 84484; 85025; 85610; 93005; 99284; 99285

== ENCOUNTER → 2022-09-01 12:15 | Outpatient (BNV) | payer MEDICARE, MEDICAID, SELFPAY | PROVIDERS: Emergency Provider Student in an Organized Health Care Education/Training Program; Visit Provider Internal Medicine Cardiovascular Disease | DX: R94.31 Abnormal electrocardiogram [ECG] [EKG] (principal) | CPT/HCPCS: 93010 ==

== ENCOUNTER 2022-10-10 11:21 | Outpatient (REF) | payer MEDICARE, MEDICAID, SELFPAY ==
--- NOTE | ~2022-10-10 | US_ITS ---
EXAMINATION: US RETROPERITONEAL LIMITED (RENAL ONLY) CLINICAL INFORMATION: Chronic kidney disease stage 2. Kidney cyst. COMPARISON: CT abdomen and pelvis 08/01/2020. TECHNIQUE: Real-time imaging of the kidneys. FINDINGS: RIGHT KIDNEY: 9.4 x 5.5 x 5.1 cm (SAG x AP x TRV). The kidney is normal in size, contour, and echogenicity. Renal cortical thickness is normal. No hydronephrosis. Nonobstructive 0.4 cm calculus in the interpolar region. Simple appearing cyst in the interpolar region measuring 0.8 cm, for which no imaging follow-up is recommended. Numerous hyperechoic foci scattered throughout the parenchyma without associated shadowing nor twinkle artifact in favor to represent vascular calcifications. LEFT KIDNEY: 10.4 x 5.8 x 5.6 cm (SAG x AP x TRV). The kidney is normal in size, contour, and echogenicity. Renal cortical thickness is normal. No hydronephrosis. There is a 2.7 x 2.3 x 2.7 cm cyst in the interpolar region with lobulated contour and nonspecific peripheral hyperechoic foci. There is a smaller 1.3 x 1.1 x 1.4 cm cyst in the upper pole with also some peripheral hyperechoic foci. There are a few 0.3 cm nonobstructive calculi, as well as numerous hyperechoic foci without distinct shadowing or twinkle artifact most likely representing vascular calcifications. US/US renal BI IMPRESSION: 1. Bilateral nonobstructive renal calculi. 2. Mildly complex cysts in the left kidney specifically mid pole measuring 2.7 cm and upper pole measuring 1.4 cm with peripheral hyperechoic foci, likely related with associated calcifications versus layering/adjacent calculi. Continued follow-up is recommended. 3. Simple appearing cyst in the right kidney for which no imaging follow-up is recommended.
== END 2022-10-10 11:22 | disposition home or self-care (01) ==
LOC: HO.HMGCX 11:21
PROVIDERS: PCP Internal Medicine; Visit Provider Internal Medicine Nephrology
DX: N28.1 Cyst of kidney, acquired (principal); N18.2 Chronic kidney disease, stage 2 (mild)
CPT/HCPCS: 76775

== ENCOUNTER 2022-10-29 13:20 | Outpatient (REF) | payer MEDICARE, MEDICAID, SELFPAY ==
[2022-10-29 16:04] LABS: MANUAL DIFF FLAG NO
[2022-10-29 16:08] LABS: Basophils Percent Auto 0.2 % (0-2); Eosinophils Absolute Auto 0.1 X10*3/uL (0.0-0.4); Eosinophils Percent Auto 0.8 % (0-4); Hematocrit 41.1 % (37.0-47.0); Hemoglobin 14.9 g/dl (12.0-16.0); Imm Gran Abs Auto 0.03 X10*3/uL (0.00-0.03); Imm Gran Pct Auto 0.5 % (0.0-0.4); Lymphocytes Absolute Auto 2.4 X10*3/uL (1.2-4.9); Lymphocytes Percent Auto 35.4 % (20-40); Mean Corpuscular HGB Conc 36.3 g/dl (31.0-35.0); Mean Corpuscular Hemoglobin 31.5 pg (27.0-33.0); Mean Corpuscular Volume 86.9 fL (80.0-98.0); Mean Platelet Volume 9.8 fL (9.4-12.3); Monocytes Absolute Auto 0.5 X10*3/uL (0.1-1.2); Neutrophils Absolute Auto 3.7 x10*3/uL (2.0-8.3); Neutrophils Percent Auto 55.1 % (45-73); Platelet Count 364 X10*3/uL (160-400); Red Blood Count 4.73 X10*6/uL (4.20-5.50); White Blood Count 6.6 X10*3/uL (4.8-10.8)
[2022-10-29 16:24] LABS: Appearance Urine Clear; Color Urine Yellow; Glucose Urine UA Negative (Negative); Leukocyte Esterase Urine Negative (Negative); Nitrite Urine Negative (Negative); PH 6.5 (5.0-9.0); Specific Gravity - Urine <= 1.005 (1.005-1.025); UMIC TRIGGER UA YES; Urine Blood Small (1+) (Negative); Urine Ketones Negative (Negative); Urine Protein Negative (Neg-Trace)
[2022-10-29 16:27] LABS: Alanine Aminotransferase 13 U/L (0-31); Albumin Level 4.1 g/dL (3.5-5.0); Alkaline Phosphatase 55 U/L (39-117); Anion Gap 11 (12-20); Aspartate Amino Transferase 17 U/L (5-31); Bilirubin Total 0.4 mg/dL (0.0-1.0); Blood Urea Nitrogen 20 mg/dL (9-16); Calcium 8.7 mg/dL (8.4-10.2); Carbon Dioxide 26 mmol/L (22-29); Chloride 104 mmol/L (96-108); Estimated Glomerular Filt Rate > 60; Glucose Random 87 mg/dL (60-115); Magnesium 2.1 mg/dL (1.6-2.6); Phosphorus 3.1 mg/dL (2.7-4.5); Potassium 3.2 mmol/L (3.3-5.1); Sodium 138 mmol/L (135-145); Total Protein 7.1 g/dL (6.5-8.0)
[2022-10-29 16:29] LABS: Bacteria Urine None Seen (None Seen); Hyaline Casts Urine 0-2 /LPF (0-2); Squamous Epithelial Cell Urine 0-2 /HPF (0-2); WBC Urine 0-5 /HPF (0-5)
[2022-10-29 16:39] LABS: Uric Acid 5.5 mg/dL (2.4-5.7)
[2022-10-29 16:51] LABS: Vitamin D 25-OH Total 67.7 ng/mL (>30)
[2022-10-29 17:04] LABS: Creatinine Urine 23.53 mg/dL; Total Protein Urine Random < 7 mg/dL (<12)
[2022-10-30 11:53] LABS: Calcium (PTHI) 9.5 mg/dL (8.6-10.4); PTHI 50 pg/mL (16-77)
== END 2022-10-29 13:21 | disposition home or self-care (01) ==
LOC: HO.HMGCLDS 13:20
PROVIDERS: PCP Internal Medicine; Visit Provider Internal Medicine Nephrology
DX: N18.2 Chronic kidney disease, stage 2 (mild) (principal); N28.1 Cyst of kidney, acquired; F17.290 Nicotine dependence, other tobacco product, uncomplicated; E55.9 Vitamin D deficiency, unspecified
CPT/HCPCS: 36415; 80053; 81001; 82306; 82570; 83735; 83970; 84100; 84156; 84550; 85025

== ENCOUNTER 2022-12-05 08:40 | Outpatient (REF) | payer MEDICARE, MEDICAID, SELFPAY ==
--- NOTE | ~2022-12-05 | CT_ITS ---
EXAMINATION: CT ABDOMEN WITH CONTRAST CLINICAL INFORMATION: Complex left renal cyst. COMPARISON: Renal ultrasound 10/10/2022, CT abdomen and pelvis 04/25/2015. TECHNIQUE: Contiguous axial thin section helical images of the abdomen were performed following the administration of 85 mL of Omnipaque 350 intravenous contrast. The data set was reformatted in the coronal and sagittal planes and reviewed on an independent workstation. This CT examination was performed using dose optimization techniques as appropriate, variously including the following: *Automated exposure control *Adjustment of mA and/or kV according to patient size (this includes techniques or standardized protocols for targeted exams where dose is matched to indication/reason for exam; i.e. extremities or head) *Use of iterative reconstruction technique DLP: 249 mGy-cm FINDINGS: LUNG BASES: No suspicious lung nodules. LIVER, GALLBLADDER, AND BILIARY TREE: Liver is homogeneous without discrete mass. No ductal dilatation. The gallbladder is unremarkable. PANCREAS: No discrete mass or ductal dilatation. SPLEEN: Normal size spleen. ADRENAL GLANDS AND KIDNEYS: No adrenal mass. The nephrograms are symmetric. There are many small hypodensities in both kidneys that are too small to characterize. There are simple cortical and peripelvic cysts in the left kidney. A bilobed cyst in the posterior mid left kidney measures intermediate density but on ultrasound is clearly a thinly septated cyst. No follow-up imaging is recommended. Involuting complex cyst adjacent to the thinly septated bilobed cyst. Additional smaller intermediate hypodense lesions in the left kidney are consistent with cysts by ultrasound. 2 mm nonobstructing calculus in the lower pole right kidney. No hydronephrosis. BOWEL LOOPS: The small bowel is normal in caliber. Mild colonic diverticulosis. The appendix appears normal. LYMPH NODES: No adenopathy. VASCULAR: No aortic aneurysm. Mild aortoiliac atherosclerosis. BONES: Degenerative changes in the spine. CT/CT abdomen w IV con IMPRESSION: Stable renal cysts with at two Bosniak 2 cysts in the mid left kidney. 2 mm nonobstructing calculus in the lower right kidney. Fleischner guidelines were followed.
[2022-12-05] MEDS: iohexoL 350 MG/ML 100 ML INFUS..BTL 85 ML IV (09:09)
[2022-12-06 08:06] LABS: Creatinine POC 0.5 mg/dL (0.5-1.4); GFR POC > 60
== END 2022-12-05 08:41 | disposition home or self-care (01) ==
LOC: HO.CT 08:40
PROVIDERS: Visit Provider Internal Medicine Nephrology
DX: N28.1 Cyst of kidney, acquired (principal); N18.2 Chronic kidney disease, stage 2 (mild)
CPT/HCPCS: 74160; 82565; Q9967

== ENCOUNTER 2023-05-23 15:55 | Outpatient (REF) | payer MEDICARE, MEDICAID, SELFPAY ==
[2023-05-23 18:36] LABS: Erythrocyte Sedimentation Rate 7 MM/HR (0-20)
[2023-05-23 18:45] LABS: Alanine Aminotransferase 12 U/L (0-31); Albumin Level 4.1 g/dL (3.5-5.0); Alkaline Phosphatase 49 U/L (39-117); Amylase 56 U/L (28-100); Anion Gap 13 (12-20); Aspartate Amino Transferase 16 U/L (5-31); Bilirubin Total 0.3 mg/dL (0.0-1.0); Blood Urea Nitrogen 22 mg/dL (9-16); C Reactive Protein < 0.10 mg/dL (< or = 0.50); Calcium 9.7 mg/dL (8.4-10.2); Carbon Dioxide 28 mmol/L (22-29); Chloride 104 mmol/L (96-108); Estimated Glomerular Filt Rate 51; Glucose Random 96 mg/dL (60-115); Iron 84 mcg/dL (30-160); Lipase 27 U/L (8-78); Percent Iron Saturation 36 % (15-50); Potassium 3.2 mmol/L (3.3-5.1); Sodium 142 mmol/L (135-145); Total Iron Binding Capacity 235 mcg/dL (228-428); Total Protein 6.9 g/dL (6.5-8.0); Unsaturated Iron Binding 151 ug/dL
[2023-05-23 18:49] LABS: Gamma Glutamyl Transpeptidase 15 U/L (7-33)
[2023-05-23 19:01] LABS: Ferritin 194 ng/mL (10-250); Free T4 (Free Thyroxine) 1.03 ng/dL (0.71-1.85); Thyroid Stimulating Hormone 1.54 uIU/mL (0.32-4.0)
[2023-05-24 07:26] LABS: Estimated Average Glucose 103 mg/dL; Hemoglobin A1c % 5.2 % (<6.0)
== END 2023-05-23 15:56 | disposition home or self-care (01) ==
LOC: HO.MANLDS 15:55
PROVIDERS: Visit Provider Physician Assistant
DX: R10.0 Acute abdomen (principal); H53.8 Other visual disturbances
CPT/HCPCS: 36415; 80053; 82150; 82728; 82977; 83036; 83540; 83690; 84439; 84443; 85652; 86140

== ENCOUNTER 2023-06-19 10:04 | Emergency (ER) | payer MEDICARE, MEDICAID, SELFPAY ==
[2023-06-19] VITALS (9 sets, daily range): BP systolic 130–155; BP diastolic 84–91; PULSE 62–71; RESP 12–20; TEMP 36.3–36.7; O2SAT 96–99; BMI 24.9
--- NOTE | 2023-06-19 | ECG_ITS ---
Test Reason : SYNCOPE Blood Pressure : / mmHG Vent. Rate : 067 BPM Atrial Rate : 067 BPM P-R Int : 198 ms QRS Dur : 094 ms QT Int : 430 ms P-R-T Axes : 059 027 056 degrees QTc Int : 454 ms Normal sinus rhythm Nonspecific T wave abnormality Abnormal ECG When compared with ECG of 01-SEP-2022 12:21, No significant change was found Referred By: Bel Alexandra Electronically Signed By:NATALIE ABDULLAHI
--- NOTE | ~2023-06-19 | CT_ITS ---
EXAMINATION: CT HEAD WITHOUT CONTRAST CLINICAL INFORMATION: Dizziness. COMPARISON: MRI brain 03/08/2020 TECHNIQUE: Contiguous axial imaging was performed from the skull base to vertex without intravenous administration of contrast. This CT examination was performed using dose optimization techniques as appropriate, variously including the following: *Automated exposure control *Adjustment of mA and/or kV according to patient size (this includes techniques or standardized protocols for targeted exams where dose is matched to indication/reason for exam; i.e. extremities or head) *Use of iterative reconstruction technique DLP: 617 mGy-cm FINDINGS: There is no evidence of acute intracranial hemorrhage or large territorial infarction. No mass effect or midline shift is seen. No extra-axial fluid collections are identified. No hydrocephalus. Patchy periventricular and deep white matter hypoattenuation is consistent with moderate small vessel ischemic changes. The osseous structures and soft tissues are intact. The mastoid air cells and visualized portions of the paranasal sinuses are well aerated. CT/CT head/brain wo IV con IMPRESSION: No acute intracranial pathology.
--- NOTE | 2023-06-19 10:19 | ED_ITS ---
HPI - Dizziness General Chief Complaint: Dizziness Stated Complaint: ON/OFF DIZZINESS X1 MONTH,WORSE TODAY PER EMS Time Seen by Provider: 06/19/23 10:11 Source: patient and old records reviewed Mode of arrival: EMS Limitations: no limitations History of Present Illness HPI Narrative: 67 yo female with PMH of HTN, anxiety, brain aneurysm that she notes is very small and has seen specialist for and there is no plans for intervention here with c/on intermittent room spinning x 1 month on and off worse with movement and turning head. She notes no CP/SOB, GIB, URI. She states if she lays still she is fine normally it resolves at home. Today she noted upon waking at 7am it was present and that she did not improve. She went to bed normal 10pm did not wake up in the middle of the night MD elicited complaint: dizziness Onset (ago): month(s) (1) Timing: sudden onset and intermittent Severity: moderate Description: room spinning Context: change in body position History of similar symptoms: Yes Exacerbating factors: movement/ambulation and change in body position Relieving factors: remaining still Associated symptoms: denies other symptoms Related Data Previous Rx's ?Medication ?Instructions ?Recorded cefuroxime axetil 500 mg tablet 500 mg PO BID 7 days #14 tabs 11/11/20 phenazopyridine 200 mg tablet 200 mg PO TID pain 2 days #5 tabs 11/11/20 (Pyridium) cefuroxime axetil 500 mg tablet 500 mg PO BID 7 days #14 tabs 06/19/21 phenazopyridine 100 mg tablet 100 mg PO TID PRN pain 6 doses #6 06/19/21 (Pyridium) tabs meclizine 25 mg tablet 25 mg PO TID PRN dizziness #30 tabs 06/19/23 Allergies Allergy/AdvReac Type Severity Reaction Status Date / Time No Known Allergies Allergy Verified 06/19/23 10:19 [No Known Allergies*] Review of Systems 2 Review of Systems: Constitutional : No Fever, No Chills, No Fatigue ENT/Mouth : No sore throat, No Rhinorrhea Eyes: No Eye Pain, No Swelling, No Redness Cardiovascular : No Chest Pain, No SOB, No Dyspnea on Exertion Respiratory : No Cough, No Sputum Gastrointestinal : No Nausea, No Vomiting, No Diarrhea, No abdominal Pain Genitourinary : No Dysuria, No Urinary Frequency, No Hematuria, Musculoskeletal : No joint pain, No Myalgias, No Joint Swelling Skin : No Skin Lesions, No rash Neuro : No Weakness, No Numbness, pos Dizziness, no Headache Psych : No Anxiety/Panic, No Depression All other systems reviewed and are negative [facility] Past Medical History Attestation statement: The following information was validated with the patient. Source: old records reviewed Medical History Nicotine dependence, cigarettes, uncomplicated UTI (urinary tract infection) Hypertension Depression Anxiety Kidney cysts Brain aneurysm Surgical History History of tonsillectomy Social History Social History Alcohol intake: current Alcohol intake frequency: 0-2 drinks per day Smoked in Last 30 Days: Yes Use of substances other than those prescribed or required for medical reasons: No Advance Directives: No Advance Directives Information Provided: Yes Do you have a plan to hurt others: No Plan Physical Exam 2 Vital Signs: Vital Signs: Last Vital Signs Temp 98.1 F 06/19/23 11:24 Pulse 65 06/19/23 12:12 Resp 18 06/19/23 12:12 BP 155/87 H 06/19/23 12:12 Pulse Ox 98 06/19/23 12:12 O2 Del Method Room Air 06/19/23 12:12 BMI result Body Mass Index 24.9 Appearance: Alert. Oriented X3. No acute distress. Eyes: Pupils equal, round and reactive to light. ENT: Pharynx normal. TMs normal Neck: Normal inspection. Neck supple. CVS: Normal heart rate and rhythm. Pulses normal. Respiratory: No respiratory distress. Breath sounds normal. Abdomen: Soft and nontender. Skin: Skin warm and dry. Normal skin color. Normal skin turgor. Extremities: No lower extremity edema. No calf ttp Neuro: Oriented X 3. No motor deficit. No sensory deficit. no drift, no deficits, no visual field cuts, dizziness when moving head around NIH Stroke Scale Internal: Initial- Upon Arrival Level of Consciousness: Alert Level of Consciousness Questions: Answers both questions correctly Level of Consciousness Commands: Performs both tasks correctly Best Gaze: Normal Visual: No visual loss Facial Palsy: Normal Motor Arm (Right): No drift Motor Arm (Left): No drift Motor Leg (Right): No drift Motor Leg (Left): No drift Limb Ataxia: Absent Sensory: Normal Best Language: No aphasia Dysarthia: Normal Extinction and Inattention: No abnormality Score: 0 Medications Administered Discontinued Medications Generic Name Dose Route Start Last Admin Trade Name Freq PRN Reason Stop Dose Admin Lorazepam 1 mg 06/19/23 12:17 06/19/23 12:22 Lorazepam 1 Mg Tablet PO 06/19/23 12:18 1 mg ONCE ONE Administration Meclizine HCl 25 mg 06/19/23 10:35 06/19/23 10:44 Meclizine Hcl 25 Mg Tablet PO 06/19/23 10:36 25 mg ONCE ONE Administration Potassium Chloride 40 meq 06/19/23 11:27 06/19/23 11:59 Potassium Chloride Packet 20 Meq Packet PO 06/19/23 11:28 40 meq ONCE ONE Administration Medical Decision Making Medical Decision Making [facility] Narrative: 67 yo female with PMH of HTN, anxiety, here with c/o intermittent dizziness on and off for the past month no associated neuro deficits, no vision changes worse with movements at this time will need basic labs, CT head for mass, antivert. Suspect more peripheral as it is paroxysmal and not present at rest and has no associated focal deficits. Differential Diagnosis Differential Diagnoses: The differential diagnosis associated with the presentation includes vertigo, dehydration, meniere's Admission/Observation Consideration of admission/observation: Escalation of care including admission/observation considered no acute findings on CT scan walks forward and backwards alone without assistance no ataxia stable for DC does not want inpatient rehab Lab Data [facility] Lab Attestation statement: I reviewed the patient's lab results. 06/19/23 11:03 06/19/23 11:03 Labs: Lab Results 06/19/23 06/19/23 Range/Units 11:03 12:13 WBC 5.2 (4.8-10.8) X10*3/uL RBC 4.60 (4.20-5.50) X10*6/uL Hgb 14.3 (12.0-16.0) g/dl Hct 39.6 (37.0-47.0) % MCV 86.1 (80.0-98.0) fL MCH 31.1 (27.0-33.0) pg MCHC 36.1 H (31.0-35.0) g/dl RDW 13.2 (11.0-16.0) % Plt Count 300 (160-400) X10*3/uL MPV 9.0 L (9.4-12.3) fL Immature Gran % (Auto) 0.2 (0.0-0.4) % Neut % (Auto) 54.5 (45-73) % Lymph % (Auto) 36.2 (20-40) % [place] % (Auto) 7.9 (2-11) % Eos % (Auto) 1.0 (0-4) % Baso % (Auto) 0.2 (0-2) % Lymph # (Auto) 1.9 (1.2-4.9) X10*3/uL [place] # (Auto) 0.4 (0.1-1.2) X10*3/uL Eos # (Auto) 0.1 (0.0-0.4) X10*3/uL Baso # (Auto) 0.0 (0.0-0.2) X10*3/uL Abs Immat Gran (auto) 0.01 (0.00-0.03) X10*3/uL Absolute Neuts (auto) 2.9 (2.0-8.3) x10*3/uL Absolute Nucleated RBC 0.000 (0.0-0.012) X10*3/uL Nucleated RBC % (auto) 0.0 (0.0-0.2) /100WBC Sodium 139 (135-145) mmol/L Potassium 3.2 L (3.3-5.1) mmol/L Chloride 105 (96-108) mmol/L Carbon Dioxide 25 (22-29) mmol/L Anion Gap 12 (12-20) BUN 17 H (9-16) mg/dL Creatinine 0.86 (0.5-1.4) mg/dL Estim Creat Clear Calc 66.7 Estimated GFR > 60 Random Glucose 103 (60-115) mg/dL Calcium 9.4 (8.4-10.2) mg/dL Magnesium 1.8 (1.6-2.6) mg/dL Troponin I High Sens < 2.7 (<3.5-17.0) ng/L Lipase 22 (8-78) U/L Urine Color Yellow Urine Appearance Clear Urine pH 7.5 (5.0-9.0) Ur Specific [place] 1.015 (1.005-1.025) Urine Protein Negative (Neg-Trace) mg/dL Urine Glucose (UA) Negative (Negative) mg/dL Urine Ketones Negative (Negative) mg/dL Urine Blood Small (1+) H (Negative) Urine Nitrite Negative (Negative) Ur Leukocyte Esterase Negative (Negative) Urine RBC 11-20 H (0-2) /HPF Urine WBC 0-5 (0-5) /HPF Ur Squamous Epith Cells 0-2 (0-2) /HPF Urine Bacteria None Seen (None Seen) Hyaline Casts 0-2 (0-2) /LPF Independent Interpretation I performed an independent interpretation of an: EKG and CT Scan (no ICH) Interpretation: Rate: 67 Rhythm: NSR [place]: normal Normal P waves. Normal [place]ALE. Normal QRS complex. ST T wave : no JOSEFA, inverted T waves V1-V2 qTC: 454 prior studies: no change from priors The study has been interpreted contemporaneously by me. . Radiology Impression Discussion of test interpretation with radiology: I have reviewed the radiologist's reading. External Record Review External record reviewed: Outpatient record Prescription Management I considered prescription management with: Other Discharge Plan Discharge Clinical Impression: Dizziness Patient Disposition: Home, Self-Care Instructions: Dizziness (ED) Additional Instructions: return for worsening symptoms - vision loss, numbness, weakness, falls or any other concerns. call the physical therapy number to arrange follow up appointment [phone] Prescriptions: New meclizine 25 mg tablet 25 mg PO TID PRN (Reason: dizziness) Qty: 30 0RF No Action cefuroxime axetil 500 mg tablet 500 mg PO BID 7 Days Qty: 14 0RF phenazopyridine [Pyridium] 200 mg tablet 200 mg PO TID 2 Days Qty: 5 0RF cefuroxime axetil 500 mg tablet 500 mg PO BID 7 Days Qty: 14 0RF phenazopyridine [Pyridium] 100 mg tablet 100 mg PO TID PRN (Reason: pain) Qty: 6 0RF Print Language: Kazakh
[2023-06-19] MEDS: Meclizine HCl 25 MG TABLET PO (10:44)
[2023-06-19 11:08] LABS: MANUAL DIFF FLAG NO
[2023-06-19 11:11] LABS: Basophils Percent Auto 0.2 % (0-2); Eosinophils Absolute Auto 0.1 X10*3/uL (0.0-0.4); Hematocrit 39.6 % (37.0-47.0); Hemoglobin 14.3 g/dl (12.0-16.0); Imm Gran Abs Auto 0.01 X10*3/uL (0.00-0.03); Imm Gran Pct Auto 0.2 % (0.0-0.4); Lymphocytes Absolute Auto 1.9 X10*3/uL (1.2-4.9); Lymphocytes Percent Auto 36.2 % (20-40); Mean Corpuscular HGB Conc 36.1 g/dl (31.0-35.0); Mean Corpuscular Hemoglobin 31.1 pg (27.0-33.0); Mean Corpuscular Volume 86.1 fL (80.0-98.0); Monocytes Absolute Auto 0.4 X10*3/uL (0.1-1.2); Monocytes Percent Auto 7.9 % (2-11); Neutrophils Absolute Auto 2.9 x10*3/uL (2.0-8.3); Neutrophils Percent Auto 54.5 % (45-73); Platelet Count 300 X10*3/uL (160-400); Red Cell Distribution Width 13.2 % (11.0-16.0); White Blood Count 5.2 X10*3/uL (4.8-10.8)
[2023-06-19 11:26] LABS: Anion Gap 12 (12-20); Blood Urea Nitrogen 17 mg/dL (9-16); Calcium 9.4 mg/dL (8.4-10.2); Carbon Dioxide 25 mmol/L (22-29); Chloride 105 mmol/L (96-108); Creatinine Clr Calc Pharmacy 66.7; Estimated Glomerular Filt Rate > 60; Glucose Random 103 mg/dL (60-115); Lipase 22 U/L (8-78); Magnesium 1.8 mg/dL (1.6-2.6); Potassium 3.2 mmol/L (3.3-5.1); Sodium 139 mmol/L (135-145)
[2023-06-19 11:32] LABS: Troponin-I High Sensitivity < 2.7 ng/L (<3.5-17.0)
[2023-06-19] MEDS: Potassium Chloride Packet 20 MEQ PACKET 40 MEQ PO (11:59)
[2023-06-19] MEDS: LORazepam 1 MG TABLET PO (12:22)
[2023-06-19 12:23] LABS: Appearance Urine Clear; Color Urine Yellow; Glucose Urine UA Negative (Negative); Leukocyte Esterase Urine Negative (Negative); Nitrite Urine Negative (Negative); PH 7.5 (5.0-9.0); Specific Gravity - Urine 1.015 (1.005-1.025); UMIC TRIGGER UACC YES; Urine Blood Small (1+) (Negative); Urine Ketones Negative (Negative); Urine Protein Negative (Neg-Trace)
--- NOTE | 2023-06-19 12:25 | PC.NURSE ---
pt 1 assist to restroom for urine sample, pt unsteady on feet, reporting increased dizziness w ambulation.
[2023-06-19 12:42] LABS: Bacteria Urine None Seen (None Seen); Hyaline Casts Urine 0-2 /LPF (0-2); Squamous Epithelial Cell Urine 0-2 /HPF (0-2); WBC Urine 0-5 /HPF (0-5)
--- NOTE | 2023-06-19 14:59 | PC.NURSE ---
pt ambulated w improved gait, pt reporting that she is still slightly dizzy - worse w head movement, was able to ambulate forward and backward independently, plan to follow up w outpt PT.
== END 2023-06-19 15:00 | disposition home or self-care (01) ==
PROVIDERS: Emergency Provider Emergency Medicine; PCP Internal Medicine
DX: R42 Dizziness and giddiness (principal); R55 Syncope and collapse; R94.31 Abnormal electrocardiogram [ECG] [EKG]; Z79.899 Other long term (current) drug therapy
CPT/HCPCS: 36415; 70450; 80048; 81001; 83690; 83735; 84484; 85025; 93005; 99284; 99285

== ENCOUNTER → 2023-06-19 10:30 | Outpatient (BNV) | payer MEDICARE, MEDICAID, SELFPAY | PROVIDERS: Emergency Provider Emergency Medicine; PCP Internal Medicine; Visit Provider Internal Medicine | DX: R94.31 Abnormal electrocardiogram [ECG] [EKG] (principal) | CPT/HCPCS: 93010 ==

== ENCOUNTER → 2023-06-30 10:01 | Outpatient (REF) | payer MEDICARE, MEDICAID, SELFPAY ==
--- NOTE | 2023-06-30 10:04 | CA_ITS ---
Transthoracic Echocardiogram Patient (Last, First, Middle): Esme Alfonso, Gender: Female Date of : 1955 Age: 67 Procedure Date: 06/30/2023 Procedure Type: Transthoracic Echocardiogram Location: OP Height: 177.8 cm Weight: 74.84 kg BSA: 1.92 m2 Heart Rate: bpm BP: 118 / 84 mmHg Port Surveyor: TORIE Referring MD: Liv STONE Bus Monitor: Rajendra Guzman MD Symptoms: R10.13 EPIGASTRIC PAIN Study Quality: Fair ECG Rhythm: Sinus Conclusions: - 1. Normal LV ejection fraction 55-60% with grade 1 diastolic dysfunction 2. Normal cardiac valvular Doppler 3. Normal RV systolic pressure 4. Mildly dilated ascending aorta at 3.8 cm 5. No gross pericardial effusion Findings Left Ventricle Normal left ventricular size, thickness, and systolic function. The visually estimated ejection fraction is between 55-60%. Spectral Doppler is indicative of an impaired relaxation filling pattern. E/E prime ratio is <8, consistent with normal filling pressures. Evidence suggests grade I (mild) diastolic dysfunction. Right Ventricle Normal right ventricular cavity size and systolic function. Atria Both atria are normal in size. There is no evidence of interatrial shunt. Aortic Valve Normal aortic valve structure and function. There is no aortic valve stenosis. There is no aortic valve regurgitation. Mitral Valve There is mild anterior and posterior mitral leaflet thickening. There is trace mitral valve regurgitation. There is no mitral valve stenosis. Pulmonic Valve The pulmonic valve is likely normal. Tricuspid Valve Normal tricuspid valve structure. There is trace tricuspid valve regurgitation. The right ventricular systolic pressure is normal. The right ventricular systolic pressure is 20 mmHg. Normal right atrial pressure. There is no evidence of pulmonary hypertension. Great Vessels The pulmonary artery was not well visualized. There is mild dilatation of the ascending aorta measuring 3.80 cm. Venous The inferior vena cava is normal in size and collapses greater than 50% with inspiration. Pericardium/Pleural There is no evidence of pericardial effusion. Measurements 2D Linear Measurements IVSd: 1.14 0.6-0.9/0.6-1.0 cm LVIDd: 3.18 3.9-5.3/4.2-5.9 cm LVIDd Index: 1.66 2.4-3.2/2.2-3.1 cm/m2 LVIDs: 1.86 2.0-3.6 cm LVPWd: 0.99 0.7-1.1 cm LA Diam: 2.90 2.7-3.8/3.0-4.0 cm LAIDs Index: 1.51 1.5-2.3 cm/m2 LV Mass: 122.44 67-162/88-224 g LV Mass Index: 63.77 43-95/49-115 g/m2 LVOT Diam: 2.10 3.0+(-)1.3 cm 2D Systolic Function EF 4C: 56.00 >55% EF 2C: 56.00 >55% Mitral Valve MV Pk E: 0.56 MV PK A: 1.19 MV Decel Time: 282.00 E/A: 0.50 E'Lateral: 5.44 E'Medial: 4.46 E/E' Med: 12.60 E/E' Lat: 10.30 PHT: 82.00 MVA PHT: 2.68 Decel [place]: 2.00 Aortic Valve AoV Pk Charan: 1.18 AoV Mn Charan: 0.82 AoV VTI: 0.20 AoV Pk Grad: 6.00 Aov Mn Grad: 3.00 JED Cont.VTI: 3.18 LVOT LVOT Pk Charan: 1.12 LVOT Mn Charan: 0.89 LVOT VTI: 0.18 LVOT Pk Grad: 5.00 LVOT Mn Grad: 3.00 LVOT Diam: 2.10 LVOT Area: 3.46 Diastolic Function MV Pk E: 0.56 MV Pk A: 1.19 E/A: 0.50 E'Medial: 4.46 E/E' Med: 12.60 E' Laterial: 5.44 E/E' Lat: 10.30 Right Ventricle TAPSE (mm): 15.70 TVS' Charan: 8.70 Tricuspid Valve TR Pk Charan: 2.06 TR Pk Grad: 17.00 RA Press: 3.00 RVSP: 20.00 Great Vessels Aorta Sinus of Valsalva: 3.26 2.0-3.[address] [place]: 2.89 1.7-3.4 cm Ao Asc: 3.80 2.1-3.4 cm Updated in Other Vendor System with Status of Final Rajendra Guzman MD electronically signed on 06/30/2023 12:12:08 PM with status of Final
== END ==
LOC: HO.CARD 10:01
PROVIDERS: PCP Internal Medicine; Visit Provider Physician Assistant
DX: R07.89 Other chest pain (principal)
CPT/HCPCS: 93306

== ENCOUNTER → 2023-06-30 10:04 | Outpatient (BNV) | payer MEDICARE, MEDICAID, SELFPAY | PROVIDERS: PCP Internal Medicine; Visit Provider Internal Medicine Cardiovascular Disease | DX: I34.0 Nonrheumatic mitral (valve) insufficiency (principal); I36.1 Nonrheumatic tricuspid (valve) insufficiency; R93.1 Abnormal findings on diagnostic imaging of heart and coronary circulation | CPT/HCPCS: 93306 ==

== ENCOUNTER 2023-07-04 14:34 | Outpatient (REF) | payer MEDICARE, MEDICAID, SELFPAY ==
--- NOTE | ~2023-07-04 | CT_ITS ---
EXAMINATION: CT HEAD WITHOUT CONTRAST CLINICAL INFORMATION: 67-year-old female with headaches. COMPARISON: 03/08/2020 MRI, 06/19/2023 CT. TECHNIQUE: Contiguous axial imaging was performed from the skull base to vertex without intravenous administration of contrast. This CT examination was performed using dose optimization techniques as appropriate, variously including the following: *Automated exposure control *Adjustment of mA and/or kV according to patient size (this includes techniques or standardized protocols for targeted exams where dose is matched to indication/reason for exam; i.e. extremities or head) *Use of iterative reconstruction technique DLP: 750 mGy-cm FINDINGS: Brain Volume: Mild generalized diffuse supratentorial brain parenchymal volume loss, which appears disproportionate to the patient's age within the limitations of a qualitative assessment. 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 Murphy-white matter interface is preserved. There is no acute territorial infarct. There is no evidence for intracranial hemorrhage, extra-axial fluid collection, space-occupying process or mass effect. Small, subcentimeter foci of hypodensity are seen in the putamina bilaterally, which are consistent with perivascular spaces similar to previous MRI. Note is made of prominence of the basilar tip which may reflect tortuosity but an aneurysm cannot be excluded. MR angiography is recommended to further assess this. Ventricles and Subarachnoid Spaces: The ventricular system and subarachnoid spaces are within normal range; there is no hydrocephalus. Orbital Structures: Grossly unremarkable within the limitations of the study. Osseous Structures, Sinuses/Mastoids, Extracranial Soft Tissues: Unremarkable CT/CT head/brain wo IV con IMPRESSION: 1. No acute intracranial process. No evidence for intracranial hemorrhage, extra-axial fluid collection, space-occupying process, mass effect or hydrocephalus. 2. 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
== END 2023-07-04 14:35 | disposition home or self-care (01) ==
LOC: HO.CT 14:34
PROVIDERS: PCP Internal Medicine; Visit Provider Physician Assistant
DX: R51.9 Headache, unspecified (principal)
CPT/HCPCS: 70450

== ENCOUNTER 2023-07-18 10:14 | Outpatient (AMB) | payer MEDICARE, MEDICAID, SELFPAY ==
--- NOTE | 2023-07-18 07:55 | A.OFFVIS_ITS ---
Intake Visit Reasons: Current Smoker Allergies No Known Allergies [No Known Allergies*] Allergy (Verified 06/19/23 10:19) HPI HPI Current Smoker: Details: Initial visit for this 67yo smoker with a 25PYH. Patient has been smoking since age 8 for 59 years at 1/2ppd. Currently down to 2-3 cigs/day. . Reports rare marijuana use. Denies second hand smoke exposure. Denies exposure to chemicals or substances like asbestos. . Denies known family history of lung cancer. Denies personal history of cancers. Denies chest CT in last year. Reports prior LDCT at [facility] in past. . Denies recent travel outside the [place]. Denies recent respiratory illness or recent hospitalization for respiratory issues. Denies testing positive for COVID. Admits receiving COVID Vaccine. x 4. . Denies fever, chills, new/worsening cough, hemoptysis, hoarseness or dysphagia. Denies significant chest pain, significant dyspnea or unintentional weight loss. Patient Lung Cancer Screening Questionnaire reviewed with patient by provider. . Shared Decision Making Completed. Patient meets criteria. Discussed in detail with patient, the risk vs benefit of LDCT screening. Patient consents to proceed with scan. Discussed smoking cessation. [facility] Medical History (Updated 07/18/23 @ 10:26 by Rose Marie Lyman PA-C) Brain aneurysm Hypertension Depression Anxiety Kidney cysts Nicotine dependence, cigarettes, uncomplicated UTI (urinary tract infection) Surgical History History of tonsillectomy Social History (Updated 07/18/23 @ 10:26 by Rose Marie Lyman PA-C) Alcohol intake: current Alcohol intake frequency: 0-2 drinks per day Patient Tobacco Use Status: Current everyday Tobacco user Years Smoked: (onset 8yo, 1/2ppd x 59yrs, now <1/4ppd, 25+PYH) Assessment & Plan Assessment & Plan (1) Nicotine dependence, cigarettes, uncomplicated: Comment: (onset 8yo, 1/2ppd x 57yrs, now <1/4ppd, 25+PYH) Code(s): F17.210 - Nicotine dependence, cigarettes, uncomplicated Category: Medical Plan: - SDM visit completed today in office. - Patient meets criteria for LDCT for lung cancer screening purposes and is asymptomatic. - Smoking cessation counseling offered. Patients can always call [phone]. - Will arrange for a LDCT scan of the chest for screening purposes at [facility] [place]. - Risks, benefits, and alternatives were discussed in detail and the patient agrees to proceed. - Risks discussed include but are not limited to: radiation exposure, anxiety during testing and while awaiting results, false negatives, false positives and possibility of additional intervention such as further imaging or surgical procedures for benign disease. - Benefits are obviously detection of lung cancer at an early stage which can lead to improved outcomes. - Discussed the importance of screening program compliance with adherence to yearly LDCT scan as scheduled - or sooner interval scans for personalized screening regimen. - Discussed follow up plan. Our office will send a letter discussing results and if needed set up phone call and office visit based on CT findings. - Patient educated on results categorization and the management decisions for suspicious findings potentially found on the screening LDCT scan. Any patient with a Lung RADS score of 3 or 4 will be reviewed by a multidisciplinary team at [facility] [place] to form a plan of action in regards to scan findings. - If further work up is warranted for a suspicious lung finding this will be followed by the Lung Cancer Screening program in conjunction with the Thoracic Surgery Department at [facility] [place]. - A copy of the office note and LDCT will be sent to the patient's PCP - as well as documentation on any associated further plans of care. - Incidental findings on LDCT are the PCP's responsibility. These findings are indicated with an S finding on the LDCT Assessment. A note discussing the findings will be sent to the PCP who is then responsible for further management. - All questions answered.? Coding Level of Care Code Lung Cancer Screening [id number] Diagnoses Nicotine dependence, cigarettes, uncomplicated F17.210
== END 2023-07-18 10:38 | disposition home or self-care (01) ==
PROVIDERS: PCP Internal Medicine; Referring Provider Internal Medicine; Visit Provider Physician Assistant Medical
DX: F17.210 Nicotine dependence, cigarettes, uncomplicated (principal)
CPT/HCPCS: G0296

== ENCOUNTER 2023-07-18 10:26 | Outpatient (REF) | payer MEDICARE, SELFPAY ==
--- NOTE | ~2023-07-18 | CT_ITS ---
EXAMINATION: CT LOW-DOSE SCREENING CHEST WITHOUT CONTRAST CLINICAL INFORMATION: Nicotine dependence, cigarettes, uncomplicated. The patient is a current smoker with a 59 pack-year history of smoking. COMPARISON: X-ray chest 09/01/2022. TECHNIQUE: Multidetector volumetric CT imaging of the chest is performed on a Siemens SOMATOM Definition scanner without contrast using low dose technique. Additional 2D coronal and sagittal reformatted images and axial 3D maximum intensity projection (MIP) images are generated on the CT workstation. This CT examination was performed using dose optimization techniques as appropriate, variously including the following: *Automated exposure control *Adjustment of mA and/or kV according to patient size (this includes techniques or standardized protocols for targeted exams where dose is matched to indication/reason for exam; i.e. extremities or head) *Use of iterative reconstruction technique TOTAL EXAM DLP: 48 mGy-cm. CTDIvol: 1.34 mGy. FINDINGS: PULMONARY NODULES: 3 tiny benign-appearing pulmonary nodules are present including a 2 mm nodule at the left apex (5:82, a 3 mm nodule in the left lower lobe (5:366), and a 2 mm nodule in the right middle lobe (5:377). No concerning pulmonary nodules are seen LUNGS: Lungs bilaterally symmetrically expanded. There are mild diffuse emphysematous changes present with some minimal bronchial thickening seen. Bibasilar atelectasis is present. No effusion or pneumothorax. Central airways patent. MEDIASTINUM: No mediastinal, hilar or axillary adenopathy or free fluid collection. CORONARY ARTERY CALCIFICATION: None visualized on this study. THYROID GLAND: Unremarkable to the extent seen. CARDIOVASCULAR STRUCTURES: Aortic and heart size normal. No pericardial effusion. CHEST WALL/AXILLA: Unremarkable. UPPER ABDOMEN: Included portions of the solid organs in the upper abdomen unremarkable on noncontrast imaging. OSSEOUS STRUCTURES: There is a compression fracture with anterior wedging of T5. CT/CT lung screening IMPRESSION: 1. No evidence of pulmonary malignancy. 2. Mild emphysema. 3. T5 compression fracture. 4. Incidental findings (S category): No incidental findings. ASSESSMENT: Lung-RADS Category 2: Benign appearance or behavior of nodules. N/A RECOMMENDATION: Continued routine annual low-dose CT lung screening in 1 year is recommended. An order for CT CHEST LOW DOSE CANCER SCREENING ([id number]) can be placed.
== END 2023-07-18 10:27 | disposition home or self-care (01) ==
LOC: HO.CT 10:26
PROVIDERS: PCP Internal Medicine; Visit Provider Physician Assistant Medical
DX: Z12.2 Encounter for screening for malignant neoplasm of respiratory organs (principal); F17.210 Nicotine dependence, cigarettes, uncomplicated
CPT/HCPCS: 71271; G0296

== ENCOUNTER 2024-11-08 12:46 | Inpatient (IN) | payer MEDICARE, SELFPAY ==
[2024-11-08] VITALS (7 sets, daily range): BP systolic 97–142; BP diastolic 57–88; PULSE 81–104; RESP 15–32; TEMP 37.2–39.4; O2SAT 90–98; BMI 22.3
--- NOTE | ~2024-11-08 | XR_ITS ---
EXAMINATION: XR CHEST 1 VIEW HISTORY: New cough COMPARISON: Comparison is made with the prior examination dated 11/08/2024. FINDINGS: A single AP portable view of the chest performed at 12:14 PM is submitted. There is scarring in the right lower lung zone. There is airspace opacity in the left lower lobe, consistent with atelectasis or pneumonia. There is no pleural effusion, pneumothorax, or pulmonary vascular congestion. The heart is normal in size. The bones are intact. XR/XR chest 1V IMPRESSION: Airspace opacity in the left lower lobe, consistent with pneumonia. Follow-up is recommended to document resolution. Electronically signed by: Antonio Rowland MD 11/11/2024 12:47 PM EDT
--- NOTE | ~2024-11-08 | CT_ITS ---
EXAMINATION: CT HEAD WITHOUT IV CONTRAST HISTORY: confusion. TECHNIQUE: Unenhanced helical CT of the head was performed per standard departmental protocol. Coronal and sagittal reformats of the head were also evaluated. One or more of the following techniques was used for dose reduction: Automated exposure control, adjustment of the mA and/or kV according to patient size, use of iterative reconstruction technique. DLP: 716 mGy-cm COMPARISON: Comparison is made with the prior examination dated 07/04/2023. FINDINGS: BRAIN: There is diffuse prominence of the ventricular system and cortical sulci, consistent with atrophy. Periventricular and subcortical white matter hypodensities are noted which are nonspecific, but often seen in the setting of small vessel ischemic disease. There is no mass effect or midline shift. No intra- or extra-axial fluid collections are identified. SINUSES: The visualized paranasal sinuses are clear. The mastoid air cells and middle ear cavities are well pneumatized. ORBITS: The visualized orbits are unremarkable. BONES/SOFT TISSUES: The extracranial soft tissues are unremarkable. The calvarium is intact. No suspicious lytic or sclerotic lesions. CT/CT head/brain wo IV con IMPRESSION: No acute intracranial abnormality. Electronically signed by: Antonio Rowalnd MD 11/08/2024 02:23 PM EDT
--- NOTE | ~2024-11-08 | XR_ITS ---
EXAMINATION: XR CHEST 1 VIEW HISTORY: generalized weakness COMPARISON: Comparison is made with the prior examination dated 09/01/2022. FINDINGS: Two AP portable views of the chest performed at 2:05 PM are submitted. The lungs are hyperinflated, consistent with COPD. Again seen is scarring in the right lower lung zone. The lungs are otherwise clear. There is no pleural effusion, pneumothorax, or pulmonary vascular congestion. The heart is normal in size. The bones are intact. XR/XR chest 1V IMPRESSION: COPD. No acute cardiopulmonary abnormality. Electronically signed by: nAtonio Rowland MD 11/08/2024 02:24 PM EDT
--- NOTE | ~2024-11-08 | XR_ITS ---
CLINICAL HISTORY: SOb 1 view chest x-ray Comparison: CR/SR - XR CHEST 1 VIEW - 11/08/24 14:04 EDT CR/NC/SR - XR CHEST 2 VIEWS - 09/01/22 12:45 EDT Findings: Right basilar meniscus ground-glass opacity. Normal size heart. Mild osteopenia. IMPRESSION: 1. Right basilar ground-glass opacity, potentially representing pneumonia. Short-term follow-up is suggested. This document has been electronically signed by: Steve Yap MD on 11/08/2024 22:17:34
--- NOTE | 2024-11-08 12:58 | ECG_ITS ---
Test Reason : WEAKNESS Blood Pressure : */* mmHG Vent. Rate : 93 BPM Atrial Rate : 93 BPM P-R Int : 172 ms QRS Dur : 92 ms QT Int : 444 ms P-R-T Axes : 61 6 34 degrees QTcB Int : 552 ms Normal sinus rhythm Nonspecific ST abnormality Abnormal ECG When compared with ECG of 19-Jun-2023 10:30, ST now depressed in Anterolateral leads Nonspecific T wave abnormality now evident in Inferior leads Nonspecific T wave abnormality has replaced inverted T waves in Anterior leads QT has lengthened Referred By: Stephanie Goetz Electronically Signed By: Rasta Herr
--- NOTE | 2024-11-08 13:00 | ED_ITS ---
HPI - General Adult General Chief complaint: General Medical Stated complaint: weak, lightheaded,hot/cold flashes Time Seen by Provider: 11/08/24 12:51 Source: patient and EMS Mode of arrival: EMS Limitations: no limitations History of Present Illness ED Provider: DR. Goezt HPI narrative: a 68-year-old female came in by ambulance for evaluation flu-like symptoms for 4 days and decreased p.o. intake. Patient normally is active and independent lives at home with her 95-year-old mother came in for the last 3-4 days of headache, head congestion, coughing, with clear phlegm, decreased p.o. intake and oral hydration. In the emergency department patient is awake and oriented x3 able to answer all questions appeared to be slow answering, patient thinks she is dehydrated. Related Data Previous Rx's ?Medication ?Instructions ?Recorded cefuroxime axetil 500 mg tablet 500 mg PO BID 7 days # 14 tabs 11/11/20 phenazopyridine 200 mg tablet 200 mg PO TID pain 2 day s #5 tabs 11/11/20 (Pyridium) cefuroxime axetil 500 mg tablet 500 mg PO BID 7 days # 14 tabs 06/19/21 phenazopyridine 100 mg tablet 100 mg PO TID PRN pain 6 doses #6 06/19/21 (Pyridium) tabs meclizine 25 mg tablet 25 mg PO TID PRN dizziness # 30 tabs 06/19/23 Allergies Allergy/AdvReac Type Severity Reaction Status Date / Time No Known Allergies (No Known Allergy Verified 11/08/24 13:10 Allergies*) Review of Systems 2 Review of Systems: All other systems are reviewed and are negative Constitutional: Reports as per HPI and Reports no additional constitutional complaints Eyes: Reports as per HPI and Reports no additional eye complaints Reports system reviewed and no additional complaints, except as documented Cardiovascular: Reports as per HPI and Reports no additional cardiovascular complaints Respiratory: Reports as per HPI and Reports no additional respiratory complaints Gastrointestinal: Reports as per HPI and Reports no additional gastrointestinal complaints Genitourinary: Reports no additional female genitourinary complaints Musculoskeletal: Reports no additional musculoskeletal complaints Skin/Breast: Reports system reviewed and no additional complaints, except as docu Psychiatric: Reports no additional psychiatric complaints Endocrine: Reports no additional endocrine complaints Hematologic/Lymphatic: Reports no additional hematologic/lymphatic complaints Allergic/Immunologic: Reports no additional allergic/immunologic complaints Reports system reviewed and no additional complaints, except as documented and Reports Abnormal speech present [facility] Past Medical History Medical History Brain aneurysm Hypertension Depression Anxiety Kidney cysts Nicotine dependence, cigarettes, uncomplicated UTI (urinary tract infection) Surgical History History of tonsillectomy Social History Social History Alcohol intake: current Alcohol intake frequency: 0-2 drinks per day Patient Tobacco Use Status: Current everyday Tobacco user Years Smoked: (onset 8yo, 1/2ppd x 59yrs, now <1/4ppd, 25+PYH) Smoked in Last 30 Days: Yes Use of substances other than those prescribed or required for medical reasons: No Advance Directives: Yes Advance Directives Information Provided: No Advance Directives on File: No Physical Exam ED Vital Signs: Vital Signs - 24 hr 11/08/24 13:11 Temperature 102.9 F H Pulse Rate 93 Respiratory Rate 18 Blood Pressure 137/75 Pulse Oximetry 95 Oxygen Delivery Method Room Air BMI result Body Mass Index 22.3 Vital signs have been reviewed and appear to be correct. Blood pressure elevated. Heart rate normal. Respiratory rate normal. Temperature normal. Oxygen saturation normal. Appearance: Alert. Oriented X3. No acute distress. Head: Normal external exam. Normocephalic. Atraumatic. No Horton signs noted. No raccoon eyes noted Eyes: PERRLA. EOMI. Conjunctiva and sclera normal. Eyelids normal. ENT: TM's Normal. Pharynx normal. Uvula midline. Moist mucous membranes. No trismus noted. No drooling noted. No muffled voice noted. Neck: Normal inspection. Neck supple. FROM. No adenopathy. Thyroid Normal. No meningeal signs. No neck mass noted. CVS: Normal heart rate and rhythm. Heart sound normal. No murmurs noted. Pulses normal throughout. Respiratory: No respiratory distress. Painless inspiration. Breath sounds normal. No wheezes/rales/rhonchi noted. Chest nontender. No accessory muscle usage noted or decreased air movement noted. Abdomen: Soft and nontender. Bowel sounds normal in all 4 quadrants. No distention noted. No organomegaly noted. No visible injury noted. Back: No CVA tenderness. Full range of motion noted. Skin: Skin warm and dry. Normal skin color. Normal skin turgor. No rashes/lesions/lacerations noted. Extremities: No lower extremity edema. Extremities exhibit normal range of motion. Extremities nontender. Neuro: Mental status: Normal attention, orientation, memory, and affect. Cranial nerves: Pupils are equal, round and reactive to light, EOMI, visual sanders are fall, face is symmetric, facial sensations are normal. Motor examination normal muscle tone, strength to 4 extremities. DTR are +2, planter's are flexor. Sensory exam; normal coordination, no ataxia, gait stable. Cerebellar exam: Qevkqq-fh-gkiy and hrbw-ea-[id number] is normal. Extrapyramidal system: No tremors, no rigidity with normal facial expressions. Pronator drift not present. Course Reevaluation(s) Reevaluation #1: patient now is infected meet sepsis criteria with UTI. Patient will receive antibiotic/IV fluids / blood culture/lactic acid/ Activation of sepsis workup. Severe hypokalemia will replete orally and IV fluids. Will admit to the medical service. Time: 16:38 Medications Administered Discontinued Medications Generic Name Dose Route Start Last Admin Trade Name Freq PRN Reason Stop Dose Admin Sodium Chloride 1,000 mls @ 999 mls/hr 11/08/24 12:57 11/08/24 13:27 Ns IV 11/08/24 13:57 999 mls/hr .Q1H1M ONE Administration Acetaminophen 1,000 mg in 100 mls @ 400 mls/hr 11/08/24 14:47 11/08/24 14:53 Ofirmev IV 11/08/24 15:01 400 mls/hr ONCE ONE Administration Potassium Chloride 10 meq in 100 mls @ 100 mls/hr 11/08/24 15:32 11/08/24 15:42 Potassium Chloride/H20 IV 11/08/24 16:31 100 mls/hr ONCE ONE Administration Potassium Chloride 40 meq 11/08/24 15:32 11/08/24 15:42 Potassium Chloride Packet 20 Meq Packet PO 11/08/24 15:33 40 meq ONCE ONE Administration Medical Decision Making Differential Diagnosis Differential Diagnoses: The differential diagnosis associated with the presentation includes ( UTI, pneumonia, pneumothorax, pleural effusion, ACS, dehydration, electrolyte derangement, severe anemia, upper respiratory infection, Viral syndrome, Intracranial hemorrhage.) Admission/Observation Consideration of admission/observation: Escalation of care including admission/observation considered Consult Healthcare Provider Management of the patient was discussed with: Hospitalist (Kimberly) Lab Data MDM Lab Attestation statement: I reviewed the patient's lab results. 11/08/24 15:04 11/08/24 15:04 Labs: Lab Results 11/08/24 11/08/24 11/08/24 Range/Units 13:23 15:03 15:04 WBC 13.4 H (4.8-10.8) X10*3/uL RBC 4.34 (4.20-5.50) X10*6/uL Hgb 13.0 (12.0-16.0) g/dl Hct 36.2 L (37.0-47.0) % MCV 83.4 (80.0-98.0) fL MCH 30.0 (27.0-33.0) pg MCHC 35.9 H (31.0-35.0) g/dl RDW 12.9 (11.0-16.0) % Plt Count 213 D (160-400) X10*3/uL MPV 9.3 L (9.4-12.3) fL Immature Gran % (Auto) 0.4 (0.0-0.4) % Neut % (Auto) 83.1 H (45-73) % Lymph % (Auto) 4.8 L (20-40) % [place] % (Auto) 11.6 H (2-11) % Eos % (Auto) 0.0 (0-4) % Baso % (Auto) 0.1 (0-2) % Lymph # (Auto) 0.6 L (1.2-4.9) X10*3/uL [place] # (Auto) 1.6 H (0.1-1.2) X10*3/uL Eos # (Auto) 0.0 (0.0-0.4) X10*3/uL Baso # (Auto) 0.0 (0.0-0.2) X10*3/uL Abs Immat Gran (auto) 0.06 H (0.00-0.03) X10*3/uL Absolute Neuts (auto) 11.1 H (2.0-8.3) x10*3/uL Absolute Nucleated RBC 0.000 (0.0-0.012) X10*3/uL Nucleated RBC % (auto) 0.0 (0.0-0.2) /100WBC Smear Tech's Comments VERIFIED Sodium 133 L (135-145) mmol/L Potassium 2.3 L* D (3.3-5.1) mmol/L Chloride 94 L (96-108) mmol/L Carbon Dioxide 29 (22-29) mmol/L Anion Gap 12 (12-20) BUN 14 (9-16) mg/dL Creatinine 1.17 (0.5-1.4) mg/dL Estim Creat Clear Calc 50.0 Estimated GFR 46 Random Glucose 116 H (60-115) mg/dL Calcium 8.2 L D (8.4-10.2) mg/dL Magnesium 2.0 (1.6-2.6) mg/dL Total Bilirubin 0.7 (0.0-1.0) mg/dL Direct Bilirubin 0.3 (0.0-0.5) mg/dL AST 23 (5-31) U/L ALT 8 (0-31) U/L Alkaline Phosphatase 52 (39-117) U/L Troponin I High Sens 15.8 D (<3.5-17.0) ng/L Total Protein 6.3 L (6.5-8.0) g/dL Albumin 3.5 (3.5-5.0) g/dL Lipase 16 (8-78) U/L Urine Color Urine Appearance Urine pH (5.0-9.0) Ur Specific [place] (1.005-1.025) Urine Protein (Neg-Trace) mg/dL Urine Glucose (UA) (Negative) mg/dL Urine Ketones (Negative) mg/dL Urine Blood (Negative) Urine Nitrite (Negative) Ur Leukocyte Esterase (Negative) Urine RBC (0-2) /HPF Urine WBC (0-5) /HPF Ur Squamous Epith Cells (0-2) /HPF Urine Bacteria (None Seen) Hyaline Casts (0-2) /LPF Influenza Type A (PCR) NEGATIVE (Negative) Influenza Type B (PCR) NEGATIVE (Negative) RSV RNA Qual (PCR) NEGATIVE (Negative) SARS-CoV-2 RNA (RT-PCR) NEGATIVE (Negative) 11/08/24 Range/Units 15:41 WBC (4.8-10.8) X10*3/uL RBC (4.20-5.50) X10*6/uL Hgb (12.0-16.0) g/dl Hct (37.0-47.0) % MCV (80.0-98.0) fL MCH (27.0-33.0) pg MCHC (31.0-35.0) g/dl RDW (11.0-16.0) % Plt Count (160-400) X10*3/uL MPV (9.4-12.3) fL Immature Gran % (Auto) (0.0-0.4) % Neut % (Auto) (45-73) % Lymph % (Auto) (20-40) % [place] % (Auto) (2-11) % Eos % (Auto) (0-4) % Baso % (Auto) (0-2) % Lymph # (Auto) (1.2-4.9) X10*3/uL [place] # (Auto) (0.1-1.2) X10*3/uL Eos # (Auto) (0.0-0.4) X10*3/uL Baso # (Auto) (0.0-0.2) X10*3/uL Abs Immat Gran (auto) (0.00-0.03) X10*3/uL Absolute Neuts (auto) (2.0-8.3) x10*3/uL Absolute Nucleated RBC (0.0-0.012) X10*3/uL Nucleated RBC % (auto) (0.0-0.2) /100WBC Smear Tech's Comments Sodium (135-145) mmol/L Potassium (3.3-5.1) mmol/L Chloride (96-108) mmol/L Carbon Dioxide (22-29) mmol/L Anion Gap (12-20) BUN (9-16) mg/dL Creatinine (0.5-1.4) mg/dL Estim Creat Clear Calc Estimated GFR Random Glucose (60-115) mg/dL Calcium (8.4-10.2) mg/dL Magnesium (1.6-2.6) mg/dL Total Bilirubin (0.0-1.0) mg/dL Direct Bilirubin (0.0-0.5) mg/dL AST (5-31) U/L ALT (0-31) U/L Alkaline Phosphatase (39-117) U/L Troponin I High Sens (<3.5-17.0) ng/L Total Protein (6.5-8.0) g/dL Albumin (3.5-5.0) g/dL Lipase (8-78) U/L Urine Color Dark Yellow Urine Appearance Cloudy Urine pH 6.0 (5.0-9.0) Ur Specific [place] 1.020 (1.005-1.025) Urine Protein 300 (3+) H (Neg-Trace) mg/dL Urine Glucose (UA) Negative (Negative) mg/dL Urine Ketones 15 (Negative) mg/dL Urine Blood Large (3+) H (Negative) Urine Nitrite Negative (Negative) Ur Leukocyte Esterase Small (1+) H (Negative) Urine RBC >20 H (0-2) /HPF Urine WBC >50 H (0-5) /HPF Ur Squamous Epith Cells 6-10 (0-2) /HPF Urine Bacteria 4+ (None Seen) Hyaline Casts 3-5 (0-2) /LPF Influenza Type A (PCR) (Negative) Influenza Type B (PCR) (Negative) RSV RNA Qual (PCR) (Negative) SARS-CoV-2 RNA (RT-PCR) (Negative) Independent Interpretation I performed an independent interpretation of an: Plain X-Ray ( Chest: COPD no acute cardiopulmonary abnormality.) and CT Scan ( Head: No acute intracranial pathology.) Critical Care Time Critical Care Time Critical Care Time: Yes Total Critical Care Time: 60 Attestation: The patient was critically ill with a high probability of imminent or life- threatening deterioration. I spent greater than 30 minutes of discontinuous time evaluating the patient, delivering critical care at the bedside, discussing evaluating data with consultants. Critical care time does not include time spent performing separately billable procedures or teaching. Time spent performing critical care was 60 minutes. Discharge Plan Discharge Clinical Impression: Acute UTI, Sepsis, Hypokalemia Patient Disposition: Admitted As Inpatient Print Language: Faroese
[2024-11-08 13:59] LABS: Troponin-I High Sensitivity 15.8 ng/L (<3.5-17.0)
[2024-11-08 15:12] LABS: Hematocrit 36.2 % (37.0-47.0); Imm Gran Abs Auto 0.06 X10*3/uL (0.00-0.03); Imm Gran Pct Auto 0.4 % (0.0-0.4); Lymphocytes Absolute Auto 0.6 X10*3/uL (1.2-4.9); MANUAL DIFF FLAG SCAN; Mean Corpuscular Volume 83.4 fL (80.0-98.0); NRBC Abs Auto 0.000 X10*3/uL (0.0-0.012); NRBC Pct Auto 0.0 /100WBC (0.0-0.2); Platelet Count 213 X10*3/uL (160-400); Red Blood Count 4.34 X10*6/uL (4.20-5.50); SCAN SMEAR FLAG 1; White Blood Count 13.4 X10*3/uL (4.8-10.8)
[2024-11-08 15:31] LABS: Alanine Aminotransferase 8 U/L (0-31); Albumin Level 3.5 g/dL (3.5-5.0); Alkaline Phosphatase 52 U/L (39-117); Anion Gap 12 (12-20); Aspartate Amino Transferase 23 U/L (5-31); Blood Urea Nitrogen 14 mg/dL (9-16); Calcium 8.2 mg/dL (8.4-10.2); Carbon Dioxide 29 mmol/L (22-29); Chloride 94 mmol/L (96-108); Creatinine Clr Calc Pharmacy 50.0; Estimated Glomerular Filt Rate 46; Lipase 16 U/L (8-78); Potassium 2.3 mmol/L (3.3-5.1); Sodium 133 mmol/L (135-145); Total Protein 6.3 g/dL (6.5-8.0)
[2024-11-08 15:33] LABS: Hemoglobin 13.0 g/dl (12.0-16.0)
[2024-11-08 15:34] LABS: Mean Corpuscular Hemoglobin 30.0 pg (27.0-33.0)
[2024-11-08 15:35] LABS: Mean Corpuscular HGB Conc 35.9 g/dl (31.0-35.0)
[2024-11-08] MEDS: Potassium Chloride Packet 20 MEQ PACKET 40 MEQ PO (15:42)
[2024-11-08] MEDS: Potassium Chloride/H20 10 MEQ/100 ML PIGGYBACK 100 MEQ IV (15:42)
[2024-11-08 15:49] LABS: Appearance Urine Cloudy; Glucose Urine UA Negative (Negative); PH 6.0 (5.0-9.0); Specific Gravity - Urine 1.020 (1.005-1.025); UMIC TRIGGER UACC YES
[2024-11-08 15:52] LABS: UACC Culture Trigger YES
[2024-11-08 15:54] LABS: Resp Syncy Virus RNA Qual PCR NEGATIVE (Negative); SARS COV2 PCR INHOUSE NEGATIVE (Negative)
[2024-11-08 15:59] LABS: Magnesium 2.0 mg/dL (1.6-2.6)
--- NOTE | 2024-11-08 16:00 | PC.NURSE ---
Addendum entered by Rosa Hernandez RN 11/08/24 18:13: Patient is a 68-year-old female who presents to the emergency department for malaise. She states that she has been feeling ?weird? since Friday. She reports feeling dizzy and weak, she reports decreased oral intake and associated nausea. Over the weekend she reports having chills. She did not have any urinary symptoms. She was noted to have a fever of 102.9. Lab work was significant for leukocytosis of 13.4 as well as a potassium level of 2.3. She states that she takes potassium supplementation that she gets [id number] although she does not know the dose that she takes. She has been told in the past and her potassium levels are low. She received IV ceftriaxone for the treatment of urinary tract infection. Patient alert and oriented, slow to respond. Difficulty with work choosing noted. Respirations even and non-labored. Abdomen soft, non-tender with positive bowel sounds. Positive pedal pulses with no edema. Original Note: Medical History Brain aneurysm Hypertension Depression Anxiety Kidney cysts Nicotine dependence, cigarettes, uncomplicated UTI (urinary tract infection)
[2024-11-08 17:28] LABS: Alanine Aminotransferase 8 U/L (0-31); Albumin Level 3.3 g/dL (3.5-5.0); Alkaline Phosphatase 48 U/L (39-117); Anion Gap 11 (12-20); Aspartate Amino Transferase 21 U/L (5-31); Blood Urea Nitrogen 14 mg/dL (9-16); Calcium 7.9 mg/dL (8.4-10.2); Carbon Dioxide 28 mmol/L (22-29); Chloride 98 mmol/L (96-108); Creatinine Clr Calc Pharmacy 46.8; Estimated Glomerular Filt Rate 42; Potassium 3.1 mmol/L (3.3-5.1); Sodium 134 mmol/L (135-145); Total Protein 5.9 g/dL (6.5-8.0)
--- NOTE | 2024-11-08 17:32 | PM.IMHP ---
History of Present Illness Date of Service: 11/08/24 Attending physician on admission: Debbie Guillermo Chief Complaint: malaise This is a 68-year-old female who presents to the emergency department for malaise. She states that she has been feeling ?weird? since Friday. She reports feeling dizzy and weak, she reports decreased oral intake and associated nausea. Over the weekend she reports having chills. She did not feel feverish. She did not have any urinary symptoms. She denies abdominal pain or back pain. In the emergency department she was noted to have a fever of 102.9. Lab work was significant for leukocytosis of 13.4 as well as a potassium level of 2.3. She states that she takes potassium supplementation that she gets [id number] although she does not know the dose that she takes. She has been told in the past and her potassium levels are low. She received IV ceftriaxone for the treatment of urinary tract infection, she received oral and IV potassium supplementation in the decision was made to admit her to the hospital for further management. Review of Systems Review of Systems: Yes all other systems are reviewed and are negative Constitutional: Constitutional: Denies chills and Denies fever(s) Cardiovascular: Cardiovascular: Denies chest pain, Denies palpitations and Denies dyspnea Respiratory: Respiratory: Denies cough and Denies dyspnea Gastrointestinal: Gastrointestinal: Denies abdominal pain, Denies diarrhea, Reports nausea and Denies vomiting Endocrine: Endocrine: Denies palpitations [facility] Medical History Brain aneurysm Hypertension Depression Anxiety Kidney cysts Nicotine dependence, cigarettes, uncomplicated UTI (urinary tract infection) Surgical History History of tonsillectomy Social History Alcohol intake: current Alcohol intake frequency: 0-2 drinks per day Patient Tobacco Use Status: Current everyday Tobacco user Years Smoked: (onset 8yo, 1/2ppd x 57yrs, now <1/4ppd, 25+PYH) Smoked in Last 30 Days: Yes Use of substances other than those prescribed or required for medical reasons: No Advance Directives: Yes Advance Directives Information Provided: No Advance Directives on File: No Meds Allergies Allergy/AdvReac Type Severity Reaction Status Date / Time No Known Allergies (No Known Allergy Verified 11/08/24 13:10 Allergies*) Home Medications ?Medication ?Instructions ?Recorded ?Confirmed ?Last Taken ?Type alprazolam 0.5 mg tablet 0.5 mg PO DAILY 11/08/24 11/08/24 11/06/24 History bupropion HCl 300 mg 24 hr tablet, 300 mg PO DAILY 11/08/24 11/08/24 11/06/24 History extended release chlorthalidone 25 mg tablet 25 mg PO DAILY 11/08/24 11/08/24 11/06/24 History desvenlafaxine succinate 50 mg 50 mg PO DAILY 11/08/24 11/08/24 11/06/24 History tablet,extended release 24 hr Physical Exam Vital Signs and Narrative: Vital Signs: Last Vital Signs Temp 98.9 F 11/08/24 16:51 Pulse 89 11/08/24 16:51 Resp 15 11/08/24 16:51 BP 107/57 L 11/08/24 16:51 Pulse Ox 98 11/08/24 16:51 O2 Del Method Room Air 11/08/24 16:51 BMI result Body Mass Index 22.3 Const: General: cooperative, comfortable, no acute distress, alert and awake Nutritional Appearance: average body habitus Orientation/consciousness: patient oriented x3 Resp: Effort & Inspection: normal respiratory effort, able to speak in complete sentences, no respiratory distress and no use of accessory muscles Cardio: Rate: regular rate GI: Inspection: No distended Palpation (GI): not soft and nontender Neuro: General: patient oriented x3, moves all extremities and CN's II-XI intact bilaterally Extrem: General: No pedal edema Results Labs 11/08/24 15:04 11/08/24 16:59 Labs: Laboratory Results - last 24 hr 11/08/24 11/08/24 11/08/24 13:23 15:03 15:04 MCV 83.4 MCH 30.0 MCHC 35.9 H RDW 12.9 Plt Count 213 D MPV 9.3 L Immature Gran % (Auto) 0.4 Neut % (Auto) 83.1 H Lymph % (Auto) 4.8 L [place] % (Auto) 11.6 H Eos % (Auto) 0.0 Baso % (Auto) 0.1 Lymph # (Auto) 0.6 L [place] # (Auto) 1.6 H Eos # (Auto) 0.0 Baso # (Auto) 0.0 Abs Immat Gran (auto) 0.06 H Absolute Neuts (auto) 11.1 H Absolute Nucleated RBC 0.000 Nucleated RBC % (auto) 0.0 Smear Tech's Comments VERIFIED Anion Gap 12 Estim Creat Clear Calc 50.0 Estimated GFR 46 Random Glucose 116 H Lactic Acid Calcium 8.2 L D Magnesium 2.0 Total Bilirubin 0.7 Direct Bilirubin 0.3 AST 23 ALT 8 Alkaline Phosphatase 52 Troponin I High Sens 15.8 D Total Protein 6.3 L Albumin 3.5 Lipase 16 Urine Color Urine Appearance Urine pH Ur Specific [place] Urine Protein Urine Glucose (UA) Urine Ketones Urine Blood Urine Nitrite Ur Leukocyte Esterase Urine RBC Urine WBC Ur Squamous Epith Cells Urine Bacteria Hyaline Casts Influenza Type A (PCR) NEGATIVE Influenza Type B (PCR) NEGATIVE RSV RNA Qual (PCR) NEGATIVE SARS-CoV-2 RNA (RT-PCR) NEGATIVE 11/08/24 11/08/24 15:41 16:59 MCV MCH MCHC RDW Plt Count MPV Immature Gran % (Auto) Neut % (Auto) Lymph % (Auto) [place] % (Auto) Eos % (Auto) Baso % (Auto) Lymph # (Auto) [place] # (Auto) Eos # (Auto) Baso # (Auto) Abs Immat Gran (auto) Absolute Neuts (auto) Absolute Nucleated RBC Nucleated RBC % (auto) Smear Tech's Comments Anion Gap 11 L Estim Creat Clear Calc 46.8 Estimated GFR 42 Random Glucose 148 H Lactic Acid 1.4 Calcium 7.9 L Magnesium Total Bilirubin 0.6 Direct Bilirubin AST 21 ALT 8 Alkaline Phosphatase 48 Troponin I High Sens Total Protein 5.9 L Albumin 3.3 L Lipase Urine Color Dark Yellow Urine Appearance Cloudy Urine pH 6.0 Ur Specific [place] 1.020 Urine Protein 300 (3+) H Urine Glucose (UA) Negative Urine Ketones 15 Urine Blood Large (3+) H Urine Nitrite Negative Ur Leukocyte Esterase Small (1+) H Urine RBC >20 H Urine WBC >50 H Ur Squamous Epith Cells 6-10 Urine Bacteria 4+ Hyaline Casts 3-5 Influenza Type A (PCR) Influenza Type B (PCR) RSV RNA Qual (PCR) SARS-CoV-2 RNA (RT-PCR) Imaging Radiologist's Impressions: Impressions Head CT 11/08/24 14:00 IMPRESSION: No acute intracranial abnormality. Electronically signed by: Antonio Rowland MD 11/08/2024 02:23 PM EDT RP Chest X-Ray 11/08/24 14:04 IMPRESSION: COPD. No acute cardiopulmonary abnormality. Electronically signed by: Antonio Rowland MD 11/08/2024 02:24 PM EDT RP Assessment and Plan (1) Hypokalemia: Status: Acute (2) Acute UTI: Status: Acute Plan This is a 68-year-old female with history of hypertension who presents to the emergency department with generalized malaise found to have UTI, sepsis and severe hypokalemia Sepsis due to UTI no severe features IV ceftriaxone follow urine cultures IVF Hypokalemia due to chlorthalidone mag ok replace hold chlorthalidone follow BMP HTN bp soft hold chlorthalidone for hypokalemia and soft blood pressure in the setting of sepsis Monitor blood pressure closely mood continue baseline meds dvt ppx - Lovenox Patient will likely require 2 midnight stay in the hospital for management of sepsis due to UTI requiring IV antibiotics and hypokalemia requiring close cardiac monitoring. Quality Stroke Does the patient have a stroke diagnosis?: No VTE Prior VTE?: No VTE Risk Level:: Medical - moderate - high VTE Device Contraindication: N/A - Device Ordered VTE Drug Contraindication: N/A - Med Ordered
[2024-11-08] MEDS: Lactated Ringers 1,000 ML 100 ML IVCONT ×2 (18:09→21:34)
--- NOTE | 2024-11-08 18:13 | PHA.MEDREC ---
Addendum entered by Sariah Galarza RPh 11/08/24 18:26: Reviewed by [facility], provider aware of Wellbutrin fill Original Note: Pharmacy Consult ? Medication Reconciliation Pharmacy has completed the medication reconciliation. Spoke with pt and she confirmed her medications. Pt confirmed she it taking a Potassium tablet QD OTC, but doesn't remember the dose at this time and she states she still takes Bupropion 300mg QD and confirmed that is being filled at [facility] in [place]; I called [facility] and they confirmed the pt last got Bupropion 300mg tabs filled back in December 2023.
--- NOTE | 2024-11-08 20:14 | PC.NURSE ---
Took over care from SIMON Lee at 19:00,pt resting in bed no sign of distress at this time. Sonia called at 16:39 prior to my shift.
--- NOTE | 2024-11-08 20:35 | PC.NURSE ---
RN informed admitting that continuous LR fluids were given by mistake as a bolus by the previous RN. waiting for further orders.
--- NOTE | 2024-11-08 21:23 | PC.NURSE ---
RN spoke to provider regarding pts temp and low bp. Waiting for pending orders from provider.
[2024-11-08 22:14] LABS: NT Pro B Type Natriuretic Pept 705.2 pg/mL (<300)
--- NOTE | 2024-11-08 22:56 | PC.NURSE ---
Pt has some crackles in RLL. MD aware. MD gave verbal order to D/C fluids.
--- NOTE | 2024-11-08 23:21 | PC.NURSE ---
Addendum entered by Kindra Alas RN 11/09/24 06:00: provider aware of 80-90 range soft BPs- no further orders at this time. pt is resting. no respiratory distress. call woo at bedside. able to make needs known. Oral K+ drink given. Pt able to tolerate. Pt taken off O2 NC as oxygen has been above 94. Addendum entered by Kindra Alas RN 11/09/24 02:50: pt was stating in the upper 80s- placed on 2L NC. MD aware. Addendum entered by Kindra Alas RN 11/09/24 01:10: rn informed me of pt being febrile- put ibuprofen order. pt medicated. Original Note: LR that was infused at 1745 were ended on the apr as previous rn gave as bolus. MD informed RN to pause current LR order that was infusing at 100 mLs/hr.
[2024-11-09] VITALS (13 sets, daily range): BP systolic 91–130; BP diastolic 37–73; PULSE 85–109; RESP 16–23; TEMP 36.2–39.2; O2SAT 92–99; BMI 22.7
[2024-11-09] MEDS: 0.9 % Sodium Chloride Flush 3 ML SYRINGE IVFLUSH ×2 (01:04→16:02)
[2024-11-09] MEDS: Potassium Chloride Packet 20 MEQ PACKET 40 MEQ PO (05:43)
--- NOTE | 2024-11-09 07:00 | CA_ITS ---
Transthoracic Echocardiogram Patient (Last, First, Middle): sEme Alfonso, Gender: Female Date of : 1955 Age: 68 Procedure Date: 11/09/2024 Procedure Type: Transthoracic Echocardiogram Location: ER Height: 180.34 cm Weight: 72.58 kg BSA: 1.92 m2 Heart Rate: bpm BP: 111 / 37 mmHg [employer] Engine Mechanic: VH/RC Referring MD: Kaylin STONE Symptoms: ? New Afib Study Quality: Adequate ECG Rhythm: Atrial Fibrillation Conclusions: - Normal left ventricular size and systolic function. There is moderately increased left ventricular wall thickness. The visually estimated ejection fraction is between 55-60%. Diastolic function is indeterminate on the basis of available data. - Normal right ventricular cavity size and systolic function. Findings Left Ventricle Normal left ventricular size and systolic function. There is moderately increased left ventricular wall thickness. The visually estimated ejection fraction is between 55-60%. Diastolic function is indeterminate on the basis of available data. Right Ventricle Normal right ventricular cavity size and systolic function. Atria The left atrium is normal in size. The right atrium is normal in size. Aortic Valve Normal aortic valve structure and function. There is no aortic valve stenosis. There is no aortic valve regurgitation. Mitral Valve The mitral valve appears normal. There is no mitral valve regurgitation. There is no mitral valve stenosis. Pulmonic Valve The pulmonic valve is likely normal. Tricuspid Valve Normal tricuspid valve structure. There is trace tricuspid valve regurgitation. The right ventricular systolic pressure is 18 mmHg. Normal right atrial pressure. There is no evidence of pulmonary hypertension. Great Vessels All visible segments of the aorta are normal in size. The visualized portions of the pulmonary artery and branches are normal. Venous The inferior vena cava is normal in size and collapses greater than 50% with inspiration. Pericardium/Pleural There is no evidence of pericardial effusion. Measurements 2D Linear Measurements IVSd: 1.41 0.6-0.9/0.6-1.0 cm LVIDd: 3.55 3.9-5.3/4.2-5.9 cm LVIDd Index: 1.85 2.4-3.2/2.2-3.1 cm/m2 LVIDs: 2.54 2.0-3.6 cm LVPWd: 1.26 0.7-1.1 cm Ao Root: 3.30 2.1-3.5 cm LA Diam: 3.00 2.7-3.8/3.0-4.0 cm LAIDs Index: 1.56 1.5-2.3 cm/m2 LV Mass: 203.74 67-162/88-224 g LV Mass Index: 106.11 43-95/49-115 g/m2 LVOT Diam: 1.90 3.0+(-)1.3 cm Mitral Valve MV Pk E: 1.01 MV Decel Time: 181.00 E'Lateral: 9.36 E'Medial: 7.51 E/E' Med: 13.40 E/E' Lat: 10.80 Aortic Valve AoV Pk Chaarn: 1.25 AoV Mn Charan: 0.92 AoV VTI: 0.19 AoV Pk Grad: 6.00 Aov Mn Grad: 4.00 JED Cont.VTI: 2.69 LVOT LVOT Pk Charan: 1.13 LVOT Mn Charan: 0.76 LVOT VTI: 0.18 LVOT Pk Grad: 5.00 LVOT Mn Grad: 3.00 LVOT Diam: 1.90 LVOT Area: 2.84 Diastolic Function MV Pk E: 1.01 E'Medial: 7.51 E/E' Med: 13.40 E' Laterial: 9.36 E/E' Lat: 10.80 Right Ventricle TAPSE (mm): 19.00 TVS' Charan: 10.00 Tricuspid Valve TR Pk Charan: 1.94 TR Pk Grad: 15.00 RA Press: 3.00 RVSP: 18.00 Great Vessels Aorta Ao Root-2D: 3.30 2.0-3.7 cm Ao Asc: 3.70 2.1-3.4 cm Pulmonary Valve PV Pk Charan: 0.62 Peak PV Grad: 2.00 Updated in Other Vendor System with Status of Final Rasta Herr MD electronically signed on 11/10/2024 3:21:59 PM with status of Final
--- NOTE | 2024-11-09 07:07 | PC.NURSE ---
Pt with lowBP Hospitalist (Jesi) notified and states to monitor- no new ordersreceived. Pt noted to be in afibHR low 100's so oncoming hospitalists notified- awaiting response EKG being done now. Pt denies complaints.
--- NOTE | 2024-11-09 07:09 | ECG_ITS ---
Test Reason : new onset afib Blood Pressure : */* mmHG Vent. Rate : 106 BPM Atrial Rate : * BPM P-R Int : * ms QRS Dur : 86 ms QT Int : 370 ms P-R-T Axes : * 22 27 degrees QTcB Int : 491 ms Atrial fibrillation with rapid ventricular response ST & T wave abnormality, consider anterior ischemia Abnormal ECG When compared with ECG of 08-Nov-2024 14:30, Atrial fibrillation has replaced Sinus rhythm T wave inversion now evident in Anterior leads QT has shortened Referred By: Kaylin Duncan Electronically Signed By: Rasta Herr
[2024-11-09] MEDS: Lactated Ringers 500 ML IVCONT (07:17)
--- NOTE | 2024-11-09 07:19 | PC.NURSE ---
new orders received- pt still denies complaints- MD aware of EK results. HR still low 100s afib.
[2024-11-09] MEDS: Potassium Chloride/H20 10 MEQ/100 ML PIGGYBACK 100 MEQ IV ×4 (07:37→12:13)
[2024-11-09] MEDS: Venlafaxine HCl ER 75 MG CAP.ER.24H PO (08:32)
[2024-11-09] MEDS: buPROPion HCl XL 300 MG TAB.ER.24H PO (08:32)
--- NOTE | 2024-11-09 09:10 | MHC.CM.PN ---
PT REPORTS SHE LIVES WITH HER 95 YEAR OLD MOTHER WHO SHE ASSISTS PRN SHE REPORTS SHE HAS FRIENDS/FAMILY FILLING IN DURING HER ABSENCE PT IS INDEPENDENT, HAS NO DME AND NO SERVICES COPY OF HCP REQUESTED PCP: GIOVANY PANIAGUA IMM DELIVERED DCP: HOME VIA [facility] [place]
[2024-11-09 09:24] LABS: Calcium 8.0 mg/dL (8.4-10.2)
--- NOTE | 2024-11-09 09:33 | P.CONCA_ITS ---
History of Present Illness History of Present Illness Date of Service: 11/09/24 Chief complaint: Afib Narrative: 68-year-old female presenting with weakness and hypokalemia. She has background history of hypertension and was on chlorthalidone. She presented with potassium of 2.3. On telemetry she has been noticed to have atrial fibrillation. She is rate controlled. She is denying any significant symptoms from atrial fibrillation. At home she has had some palpitations off and on but nothing consistent. No bleeding issues previously. Chlorthalidone has been held and she is getting potassium supplements. [facility] Past Medical History Medical History Brain aneurysm Hypertension Depression Anxiety Kidney cysts Nicotine dependence, cigarettes, uncomplicated UTI (urinary tract infection) Surgical History Surgical History History of tonsillectomy Social History Social History Household Members: Family Housing: House Do you presently have visiting nurse or other home services: No Alcohol intake: current Alcohol intake frequency: 0-2 drinks per day Patient Tobacco Use Status: Current someday Tobacco user Tobacco use type: Cigarette Years Smoked: (onset 8yo, 1/2ppd x 59yrs, now <1/4ppd, 25+PYH) Smoked in Last 30 Days: Yes Patient Interested in Nicotine Replacement: No Use of substances other than those prescribed or required for medical reasons: No Advance Directives: Yes Advance Directives Information Provided: No Advance Directives on File: No Advance Directives Date on File: 11/09/24 Do you have a plan to hurt others: No Plan Recently lost weight without trying: No Eating poorly because of decreased appetite: No Nutrition Risks: No Nutritional Risk Patient : No : No Poor oral hygiene: No service: No Meds Allergies Allergy/AdvReac Type Severity Reaction Status Date / Time No Known Allergies (No Known Allergy Verified 11/08/24 13:10 Allergies*) Active Medications: Current Medications Acetaminophen (Acetaminophen 325 Mg Tablet) 650 mg PO Q6H PRN PRN Reason: Pain, Mild 1-3,fever,headache Last Admin: 11/08/24 19:49 Dose: 650 mg Alprazolam (Alprazolam 0.5 Mg Tablet) 0.5 mg PO DAILY [facility] Last Admin: 11/09/24 08:32 Dose: 0.5 mg Apixaban (Apixaban 5 Mg Tablet) 5 mg PO BID [facility] Last Admin: 11/09/24 08:32 Dose: 5 mg Bupropion HCl (Bupropion Hcl Xl 300 Mg Tab.Er.24h) 300 mg PO DAILY [facility] Last Admin: 11/09/24 08:32 Dose: 300 mg Calcium Carbonate (Calcium Carbonate 750 Mg Tab.Chew) 750 mg PO Q4H PRN PRN Reason: Heartburn Ceftriaxone Sodium (Ceftriaxone Sodium 1 Gm Vial) 1 gm IVPUSH Q24H [facility] Enoxaparin Sodium (Enoxaparin Sodium 40 Mg/0.4 Ml Syringe) 40 mg SUBCUT Q24H [facility] Last Admin: 11/08/24 18:34 Dose: 40 mg Lactated Ringer's (Lr) 1,000 mls @ 100 mls/hr IVCONT .Q10H [facility] Last Admin: 11/09/24 07:49 Dose: Not Given Potassium Chloride (Potassium Chloride/H20) 10 meq in 100 mls @ 100 mls/hr IV Q1H [facility] Stop: 11/09/24 11:29 Last Admin: 11/09/24 08:56 Dose: 100 mls/hr Magnesium Hydroxide (Milk Of Magnesia 30 Ml Oral.Susp) 30 ml PO DAILY PRN PRN Reason: Constipation Melatonin (Melatonin 3 Mg Tablet) 6 mg PO BEDTIME PRN PRN Reason: Insomnia Sodium Chloride (0.9 % Sodium Chloride Flush 3 Ml Syringe) 3 ml IVFLUSH QSHIFT [facility] Last Admin: 11/09/24 07:44 Dose: Not Given Venlafaxine HCl (Venlafaxine Hcl Er 75 Mg Cap.Er.24h) 75 mg PO DAILY [facility] Last Admin: 11/09/24 08:32 Dose: 75 mg Home Medications ?Medication ?Instructions ?Recorded ?Confirmed ?Last Taken ?Type alprazolam 0.5 mg tablet 0.5 mg PO DAILY 11/08/2411/06/24 History bupropion HCl 300 mg 24 hr tablet, 300 mg PO DAILY 11/08/24 11/06/24 History extended release chlorthalidone 25 mg tablet 25 mg PO DAILY 11/08/2411/06/24 History desvenlafaxine succinate 50 mg 50 mg PO DAILY 11/08/24 11/08/24 11/06/24 History tablet,extended release 24 hr Physical Exam 2 Vital Signs: Vital Signs: Last Vital Signs Temp 97.2 F 11/09/24 06:20 Pulse 92 11/09/24 08:34 Resp 21 H 11/09/24 08:34 BP 109/59 L 11/09/24 08:34 Pulse Ox 99 11/09/24 08:34 O2 Del Method Room Air 11/09/24 08:34 O2 Flow Rate 2 11/09/24 04:00 BMI result Body Mass Index 22.3 GENERAL APPEARANCE: in no acute distress, pleasant. NECK: no carotid bruit, no jugular venous distention. SKIN: no suspicious lesions, warm and dry. HEART: no murmurs, irregular rate and rhythm. LUNGS: clear to auscultation bilaterally. ABDOMEN: soft, nontender. EXTREMITIES: no edema. PERIPHERAL PULSES: equal. NEUROLOGIC: No gross deficits, AAO X 3 Objective Labs and Meds 11/08/24 15:04 11/09/24 08:49 Lab results: Laboratory Results - last 24 hr 11/08/24 11/08/24 11/08/24 13:23 15:03 15:04 WBC 13.4 H RBC 4.34 Hgb 13.0 Hct 36.2 L MCV 83.4 MCH 30.0 MCHC 35.9 H RDW 12.9 Plt Count 213 D MPV 9.3 L Immature Gran % (Auto) 0.4 Neut % (Auto) 83.1 H Lymph % (Auto) 4.8 L [place] % (Auto) 11.6 H Eos % (Auto) 0.0 Baso % (Auto) 0.1 Lymph # (Auto) 0.6 L [place] # (Auto) 1.6 H Eos # (Auto) 0.0 Baso # (Auto) 0.0 Abs Immat Gran (auto) 0.06 H Absolute Neuts (auto) 11.1 H Absolute Nucleated RBC 0.000 Nucleated RBC % (auto) 0.0 Smear Tech's Comments VERIFIED Hold Purple Top Sodium 133 L Potassium 2.3 L* D Chloride 94 L Carbon Dioxide 29 Anion Gap 12 BUN 14 Creatinine 1.17 Estim Creat Clear Calc 50.0 Estimated GFR 46 Random Glucose 116 H Lactic Acid Calcium 8.2 L D Phosphorus Magnesium 2.0 Total Bilirubin 0.7 Direct Bilirubin 0.3 AST 23 ALT 8 Alkaline Phosphatase 52 Troponin I High Sens 15.8 D NT-Pro-B Natriuret Pep Total Protein 6.3 L Albumin 3.5 Lipase 16 Urine Color Urine Appearance Urine pH Ur Specific [place] Urine Protein Urine Glucose (UA) Urine Ketones Urine Blood Urine Nitrite Ur Leukocyte Esterase Urine RBC Urine WBC Ur Squamous Epith Cells Urine Bacteria Hyaline Casts Influenza Type A (PCR) NEGATIVE Influenza Type B (PCR) NEGATIVE RSV RNA Qual (PCR) NEGATIVE SARS-CoV-2 RNA (RT-PCR) NEGATIVE 11/08/24 11/08/24 11/08/24 15:41 16:59 21:40 WBC RBC Hgb Hct MCV MCH MCHC RDW Plt Count MPV Immature Gran % (Auto) Neut % (Auto) Lymph % (Auto) [place] % (Auto) Eos % (Auto) Baso % (Auto) Lymph # (Auto) [place] # (Auto) Eos # (Auto) Baso # (Auto) Abs Immat Gran (auto) Absolute Neuts (auto) Absolute Nucleated RBC Nucleated RBC % (auto) Smear Tech's Comments Hold Purple Top SEE NOTE Sodium 134 L Potassium 3.1 L D Chloride 98 Carbon Dioxide 28 Anion Gap 11 L BUN 14 Creatinine 1.25 Estim Creat Clear Calc 46.8 Estimated GFR 42 Random Glucose 148 H Lactic Acid 1.4 1.3 Calcium 7.9 L Phosphorus Magnesium Total Bilirubin 0.6 Direct Bilirubin AST 21 ALT 8 Alkaline Phosphatase 48 Troponin I High Sens NT-Pro-B Natriuret Pep 705.2 H Total Protein 5.9 L Albumin 3.3 L Lipase Urine Color Dark Yellow Urine Appearance Cloudy Urine pH 6.0 Ur Specific [place] 1.020 Urine Protein 300 (3+) H Urine Glucose (UA) Negative Urine Ketones 15 Urine Blood Large (3+) H Urine Nitrite Negative Ur Leukocyte Esterase Small (1+) H Urine RBC >20 H Urine WBC >50 H Ur Squamous Epith Cells 6-10 Urine Bacteria 4+ Hyaline Casts 3-5 Influenza Type A (PCR) Influenza Type B (PCR) RSV RNA Qual (PCR) SARS-CoV-2 RNA (RT-PCR) 11/09/24 11/09/24 04:22 08:49 WBC RBC Hgb Hct MCV MCH MCHC RDW Plt Count MPV Immature Gran % (Auto) Neut % (Auto) Lymph % (Auto) [place] % (Auto) Eos % (Auto) Baso % (Auto) Lymph # (Auto) [place] # (Auto) Eos # (Auto) Baso # (Auto) Abs Immat Gran (auto) Absolute Neuts (auto) Absolute Nucleated RBC Nucleated RBC % (auto) Smear Tech's Comments Hold Purple Top Sodium 137 Potassium 2.3 L* D Chloride 104 Carbon Dioxide 25 Anion Gap 10 L BUN 17 H 19 H Creatinine 1.39 1.39 Estim Creat Clear Calc 42.1 42.1 Estimated GFR 37 37 Random Glucose 112 135 H Lactic Acid Calcium 8.0 L 8.0 L Phosphorus 1.9 L Magnesium 2.0 2.1 Total Bilirubin Direct Bilirubin AST ALT Alkaline Phosphatase Troponin I High Sens NT-Pro-B Natriuret Pep Total Protein Albumin Lipase Urine Color Urine Appearance Urine pH Ur Specific [place] Urine Protein Urine Glucose (UA) Urine Ketones Urine Blood Urine Nitrite Ur Leukocyte Esterase Urine RBC Urine WBC Ur Squamous Epith Cells Urine Bacteria Hyaline Casts Influenza Type A (PCR) Influenza Type B (PCR) RSV RNA Qual (PCR) SARS-CoV-2 RNA (RT-PCR) Imaging Radiologist's impression: Impressions Head CT 11/08/24 14:00 IMPRESSION: No acute intracranial abnormality. Electronically signed by: Antonio Rowland MD 11/08/2024 02:23 PM EDT RP Chest X-Ray 11/08/24 14:04 IMPRESSION: COPD. No acute cardiopulmonary abnormality. Electronically signed by: Antonio Rowland MD 11/08/2024 02:24 PM EDT RP Assessment and Plan (1) Hypokalemia: Status: Acute (2) PAF (paroxysmal atrial fibrillation): Status: Acute Plan Pleasant 68-year-old female presenting for weakness due to hypokalemia secondary to chlorthalidone use. Was noticed to have new onset atrial fibrillation. She is not symptomatic currently from atrial fibrillation. Clinically not in heart failure. Replete the potassium and continue to monitor on telemetry. Hopefully with improvement in electrolytes she converts back to sinus rhythm. Should be started on anticoagulation for stroke prevention. With hypokalemia present I do not think that starting any antiarrhythmic medications or cardioversion is the right thing to do currently. I think we continue anticoagulation and as she improves from potassium point of view she can be discharged home and can have further workup as outpatient. Procedures Date of Service Date of Service: 11/09/24
[2024-11-09 09:35] LABS: Chloride 104 mmol/L (96-108); Potassium 3.1 mmol/L (3.3-5.1); Sodium 137 mmol/L (135-145)
--- NOTE | 2024-11-09 12:53 | PC.NURSE ---
Answered pt call woo, pt c/o burning cp only lasting a few seconds, described as burning, vitals obtain, reported to primary RN
--- NOTE | 2024-11-09 13:20 | PC.NURSE ---
Pt experienced a brief episode of 1/10 chest pain described as burning. Currently denies CP/SOB/palpitations/dizziness/weakness. No change in HR or rhythm. MD aware, awaiting further orders.
[2024-11-09] MEDS: Lactated Ringers 1,000 ML 100 ML IVCONT ×2 (14:29→17:59)
--- NOTE | 2024-11-09 14:56 | HO.NURTONUR ---
Pt arrived to ED c/o general malaise and feeling weird . ED workup positive for UTI (sepsis alert) and hypokalemia. Pt also found to be in controlled afib (no hx). Admitted for IV abx and IVF, with cardiac monitoring. Potassium replaced PO and IVPB, eliquis started. Pt was mildly hypotensive in ED, LR@100mL/hr running, (approved by MD despite elevated BNP due to kidney function trending up and hypotension). Pt aaox4, x1 assist to bedside commode due to unsteady gait. Pt had a brief episode of chest 'burning', MD aware and ordered additional trop. Currently denies dizziness/CP/SOB/pain, remains in afib from 90s-110s.
--- NOTE | 2024-11-09 15:09 | HO.PM.IMPN ---
Subjective Subjective Date of Service: 11/09/24 Interval History: Notified by nursing that pt had elevated HR and was appeared to be in new onset AFib Pt reports previous short episodes of palpitations in the past Currently denies chest pain or pressure or palpitations No lightheadedness or dizziness Does feel overall weak Review of Systems Review of Systems: Yes all other systems are reviewed and are negative Physical Exam Exam: Exam: General: AOx3, no acute distress Resp: CTA bilaterally CVS: Irregularly irregular rhythm GI: +BS, NT, no distention Skin: Warm, dry Neuro: Cranial nerves II-XII grossly intact bilaterally. Motor grossly intact bilaterally Extremities: No edema Psych: Appropriate affect Vital Signs: Vital Signs: Last Vital Signs Temp 97.2 F 11/09/24 06:20 Pulse 100 11/09/24 11:00 Resp 16 11/09/24 10:38 BP 107/73 11/09/24 11:00 Pulse Ox 96 11/09/24 11:00 O2 Del Method Room Air 11/09/24 11:00 O2 Flow Rate 2 11/09/24 04:00 BMI result Body Mass Index 22.3 Objective Data Active Medications Acetaminophen (Acetaminophen 325 Mg Tablet) 650 mg PO Q6H PRN PRN Reason: Pain, Mild 1-3,fever,headache Last Admin: 11/08/24 19:49 Dose: 650 mg Documented By: EJ Alprazolam (Alprazolam 0.5 Mg Tablet) 0.5 mg PO DAILY [facility] Last Admin: 11/09/24 08:32 Dose: 0.5 mg Documented By: RADHA Apixaban (Apixaban 5 Mg Tablet) 5 mg PO BID [facility] Last Admin: 11/09/24 08:32 Dose: 5 mg Documented By: RADHA Bupropion HCl (Bupropion Hcl Xl 300 Mg Tab.Er.24h) 300 mg PO DAILY [facility] Last Admin: 11/09/24 08:32 Dose: 300 mg Documented By: RADHA Calcium Carbonate (Calcium Carbonate 750 Mg Tab.Chew) 750 mg PO Q4H PRN PRN Reason: Heartburn Ceftriaxone Sodium (Ceftriaxone Sodium 1 Gm Vial) 1 gm IVPUSH Q24H [facility] Lactated Ringer's (Lr) 1,000 mls @ 100 mls/hr IVCONT .Q10H [facility] Last Admin: 11/09/24 14:29 Dose: 100 mls/hr Documented By: NADER-ANIKET Magnesium Hydroxide (Milk Of Magnesia 30 Ml Oral.Susp) 30 ml PO DAILY PRN PRN Reason: Constipation Melatonin (Melatonin 3 Mg Tablet) 6 mg PO BEDTIME PRN PRN Reason: Insomnia Sodium Chloride (0.9 % Sodium Chloride Flush 3 Ml Syringe) 3 ml IVFLUSH QSHIFT [facility] Last Admin: 11/09/24 07:44 Dose: Not Given Documented By: RADHA Non-Admin Reason: IV Running Venlafaxine HCl (Venlafaxine Hcl Er 75 Mg Cap.Er.24h) 75 mg PO DAILY [facility] Last Admin: 11/09/24 08:32 Dose: 75 mg Documented By: RADHA Labs 11/08/24 15:04 11/09/24 08:49 Labs: Laboratory Results - last 24 hr 11/08/24 11/08/24 11/08/24 15:03 15:04 15:41 MCV 83.4 MCH 30.0 MCHC 35.9 H RDW 12.9 Plt Count 213 D MPV 9.3 L Immature Gran % (Auto) 0.4 Neut % (Auto) 83.1 H Lymph % (Auto) 4.8 L White % (Auto) 11.6 H Eos % (Auto) 0.0 Baso % (Auto) 0.1 Lymph # (Auto) 0.6 L White # (Auto) 1.6 H Eos # (Auto) 0.0 Baso # (Auto) 0.0 Abs Immat Gran (auto) 0.06 H Absolute Neuts (auto) 11.1 H Absolute Nucleated RBC 0.000 Nucleated RBC % (auto) 0.0 Smear Tech's Comments VERIFIED Hold Purple Top Anion Gap 12 Estim Creat Clear Calc 50.0 Estimated GFR 46 Random Glucose 116 H Lactic Acid Calcium 8.2 L D Phosphorus Magnesium 2.0 Total Bilirubin 0.7 Direct Bilirubin 0.3 AST 23 ALT 8 Alkaline Phosphatase 52 NT-Pro-B Natriuret Pep Total Protein 6.3 L Albumin 3.5 Lipase 16 Urine Color Dark Yellow Urine Appearance Cloudy Urine pH 6.0 Ur Specific Temple 1.020 Urine Protein 300 (3+) H Urine Glucose (UA) Negative Urine Ketones 15 Urine Blood Large (3+) H Urine Nitrite Negative Ur Leukocyte Esterase Small (1+) H Urine RBC >20 H Urine WBC >50 H Ur Squamous Epith Cells 6-10 Urine Bacteria 4+ Hyaline Casts 3-5 Influenza Type A (PCR) NEGATIVE Influenza Type B (PCR) NEGATIVE RSV RNA Qual (PCR) NEGATIVE SARS-CoV-2 RNA (RT-PCR) NEGATIVE 11/08/24 11/08/24 11/09/24 16:59 21:40 04:22 MCV MCH MCHC RDW Plt Count MPV Immature Gran % (Auto) Neut % (Auto) Lymph % (Auto) White % (Auto) Eos % (Auto) Baso % (Auto) Lymph # (Auto) White # (Auto) Eos # (Auto) Baso # (Auto) Abs Immat Gran (auto) Absolute Neuts (auto) Absolute Nucleated RBC Nucleated RBC % (auto) Smear Tech's Comments Hold Purple Top SEE NOTE Anion Gap 11 L 10 L Estim Creat Clear Calc 46.8 42.1 Estimated GFR 42 37 Random Glucose 148 H 112 Lactic Acid 1.4 1.3 Calcium 7.9 L 8.0 L Phosphorus 1.9 L Magnesium 2.0 Total Bilirubin 0.6 Direct Bilirubin AST 21 ALT 8 Alkaline Phosphatase 48 NT-Pro-B Natriuret Pep 705.2 H Total Protein 5.9 L Albumin 3.3 L Lipase Urine Color Urine Appearance Urine pH Ur Specific Temple Urine Protein Urine Glucose (UA) Urine Ketones Urine Blood Urine Nitrite Ur Leukocyte Esterase Urine RBC Urine WBC Ur Squamous Epith Cells Urine Bacteria Hyaline Casts Influenza Type A (PCR) Influenza Type B (PCR) RSV RNA Qual (PCR) SARS-CoV-2 RNA (RT-PCR) 11/09/24 08:49 MCV MCH MCHC RDW Plt Count MPV Immature Gran % (Auto) Neut % (Auto) Lymph % (Auto) White % (Auto) Eos % (Auto) Baso % (Auto) Lymph # (Auto) White # (Auto) Eos # (Auto) Baso # (Auto) Abs Immat Gran (auto) Absolute Neuts (auto) Absolute Nucleated RBC Nucleated RBC % (auto) Smear Tech's Comments Hold Purple Top Anion Gap 10 L Estim Creat Clear Calc 42.1 Estimated GFR 37 Random Glucose 135 H Lactic Acid Calcium 8.0 L Phosphorus Magnesium 2.1 Total Bilirubin Direct Bilirubin AST ALT Alkaline Phosphatase NT-Pro-B Natriuret Pep Total Protein Albumin Lipase Urine Color Urine Appearance Urine pH Ur Specific Temple Urine Protein Urine Glucose (UA) Urine Ketones Urine Blood Urine Nitrite Ur Leukocyte Esterase Urine RBC Urine WBC Ur Squamous Epith Cells Urine Bacteria Hyaline Casts Influenza Type A (PCR) Influenza Type B (PCR) RSV RNA Qual (PCR) SARS-CoV-2 RNA (RT-PCR) Microbiology Microbiology Results: Microbiology 11/08/24 15:53 Urine Culture - Preliminary Urine clean catch Gram negative abad Assessment and Plan (1) PAF (paroxysmal atrial fibrillation): Status: Acute (2) Hypokalemia: Status: Acute (3) Acute UTI: Status: Acute (4) Sepsis: Status: Acute Plan This is a 68-year-old female with history of hypertension who presents to the emergency department with generalized malaise found to have UTI, sepsis and severe hypokalemia Sepsis due to UTI no severe features IV ceftriaxone, day 2 follow urine cultures IVF Question of pneumonia Repeat CXR showed right basilar ground-glass opacity potentially representing pneumonia Will add azithromycin to ceftriaxone Hypokalemia due to chlorthalidone continues to be low at 2.3 today mag ok replace hold chlorthalidone follow BMP new onset AFib Reports previous brief episodes of palpitations Will start on Eliquis 5 mg b.i.d. Echocardiogram Cardiology consulted, suggest treating infection, replacing potassium, and anticoagulation; hold on antiarrhythmics, will need outpatient additional workup HTN bp soft hold chlorthalidone for hypokalemia and soft blood pressure in the setting of sepsis Monitor blood pressure closely mood continue baseline meds Pt will require continued hospitalization for treatment of Quality Stroke Does the patient have a stroke diagnosis?: No VTE Prior VTE?: No VTE Risk Level:: Medical - moderate - high VTE Device Contraindication: N/A - Device Ordered VTE Drug Contraindication: N/A - Med Ordered
[2024-11-09 15:54] LABS: Troponin-I High Sensitivity 25.9 ng/L (<3.5-17.0)
[2024-11-10 04:00] VITALS: BP 115/58; PULSE 89; RESP 16; TEMP 37.1; O2SAT 90
[2024-11-10] MEDS: Lactated Ringers 1,000 ML 100 ML IVCONT (04:11)
[2024-11-10 07:38] VITALS: BP 121/73; PULSE 109; RESP 16; TEMP 36.1; O2SAT 92
[2024-11-10 08:16] LABS: Troponin-I High Sensitivity 16.7 ng/L (<3.5-17.0)
[2024-11-10 08:33] LABS: Anion Gap 10 (12-20); Blood Urea Nitrogen 14 mg/dL (9-16); Calcium 7.8 mg/dL (8.4-10.2); Carbon Dioxide 23 mmol/L (22-29); Chloride 104 mmol/L (96-108); Creatinine Clr Calc Pharmacy 52.7; Estimated Glomerular Filt Rate 49; Potassium 2.7 mmol/L (3.3-5.1); Sodium 134 mmol/L (135-145)
[2024-11-10 08:35] LABS: Mean Corpuscular HGB Conc 37.3 g/dl (31.0-35.0); Mean Corpuscular Hemoglobin 31.6 pg (27.0-33.0); Mean Corpuscular Volume 84.8 fL (80.0-98.0); NRBC Abs Auto 0.000 X10*3/uL (0.0-0.012); NRBC Pct Auto 0.0 /100WBC (0.0-0.2)
[2024-11-10 08:36] LABS: Red Blood Count 3.95 X10*6/uL (4.20-5.50); White Blood Count 15.0 X10*3/uL (4.8-10.8)
[2024-11-10 08:37] LABS: Hematocrit 33.5 % (37.0-47.0); Hemoglobin 12.5 g/dl (12.0-16.0)
[2024-11-10 08:38] LABS: Platelet Count 230 X10*3/uL (160-400)
[2024-11-10] MEDS: buPROPion HCl XL 300 MG TAB.ER.24H PO (08:43)
[2024-11-10] MEDS: Venlafaxine HCl ER 75 MG CAP.ER.24H PO (08:43)
[2024-11-10] MEDS: Potassium Chloride Packet 20 MEQ PACKET 40 MEQ PO ×2 (08:43→18:34)
[2024-11-10] MEDS: 0.9 % Sodium Chloride Flush 3 ML SYRINGE IVFLUSH ×2 (08:45→17:42)
[2024-11-10] MEDS: Potassium Chloride/H20 10 MEQ/100 ML PIGGYBACK 100 MEQ IV ×2 (08:45→12:51)
[2024-11-10 12:00] VITALS: BP 122/66; PULSE 97; RESP 18; TEMP 36.8; O2SAT 92
--- NOTE | 2024-11-10 13:22 | MHC.CM.PN ---
Per rounds, pt. not ready to DC, she requires further tx for Afib and UTI.
[2024-11-10 15:51] VITALS: BP 131/72; PULSE 109; RESP 18; TEMP 36.6; O2SAT 93
--- NOTE | 2024-11-10 17:11 | P.CNID_ITS ---
History of Present Illness Data of Consult Service Date: 11/10/24 Requesting physician: Kaylin Duncan Primary Care Provider: Neptali Amador MD HPI Reason for consult: coughing,RLL infiltrate,MDR urine She presents with malaise,headache and coughing. She denies abdominal pain but has nausea. She also has chills and temperature 102.9. Review of Systems 2 Review of Systems: Yes all other systems are reviewed and are negative [facility] Past Medical History Medical History Brain aneurysm Hypertension Depression Anxiety Kidney cysts Nicotine dependence, cigarettes, uncomplicated UTI (urinary tract infection) Family History Family history: reviewed and not pertinent Surgical History Surgical History History of tonsillectomy Social History Social History Household Members: Family Housing: House Do you presently have visiting nurse or other home services: No Alcohol intake: current Alcohol intake frequency: 0-2 drinks per day Comment: steady gait noted. Patient Tobacco Use Status: Current someday Tobacco user Tobacco use type: Cigarette Years Smoked: (onset 8yo, 1/2ppd x 59yrs, now <1/4ppd, 25+PYH) Advance Directives Date on File: 11/09/24 service: No Meds Allergies Allergy/AdvReac Type Severity Reaction Status Date / Time No Known Allergies (No Known Allergy Verified 11/08/24 13:10 Allergies*) Active Medications: Current Medications Acetaminophen (Acetaminophen 325 Mg Tablet) 650 mg PO Q6H PRN PRN Reason: Pain, Mild 1-3,fever,headache Last Admin: 11/08/24 19:49 Dose: 650 mg Alprazolam (Alprazolam 0.5 Mg Tablet) 0.5 mg PO DAILY [facility] Last Admin: 11/10/24 08:42 Dose: 0.5 mg Apixaban (Apixaban 5 Mg Tablet) 5 mg PO BID [facility] Last Admin: 11/10/24 08:43 Dose: 5 mg Bupropion HCl (Bupropion Hcl Xl 300 Mg Tab.Er.24h) 300 mg PO DAILY [facility] Last Admin: 11/10/24 08:43 Dose: 300 mg Calcium Carbonate (Calcium Carbonate 750 Mg Tab.Chew) 750 mg PO Q4H PRN PRN Reason: Heartburn Ceftriaxone Sodium (Ceftriaxone Sodium 1 Gm Vial) 1 gm IVPUSH Q24H [facility] Last Admin: 11/09/24 17:17 Dose: 1 gm Lactated Ringer's (Lr) 1,000 mls @ 100 mls/hr IVCONT .Q10H [facility] Last Infusion: 11/10/24 12:58 Dose: Infused Azithromycin 500 mg/ Sodium (Chloride) 250 mls @ 125 mls/hr IV Q24H [facility] Last Infusion: 11/09/24 22:08 Dose: Infused Magnesium Hydroxide (Milk Of Magnesia 30 Ml Oral.Susp) 30 ml PO DAILY PRN PRN Reason: Constipation Melatonin (Melatonin 3 Mg Tablet) 6 mg PO BEDTIME PRN PRN Reason: Insomnia Meropenem (Meropenem 1 Gm Vial) 1 gm IVPUSH Q8H [facility] Last Admin: 11/10/24 09:44 Dose: 1 gm Sodium Chloride (0.9 % Sodium Chloride Flush 3 Ml Syringe) 3 ml IVFLUSH QSHIFT [facility] Last Admin: 11/10/24 08:45 Dose: 3 ml Venlafaxine HCl (Venlafaxine Hcl Er 75 Mg Cap.Er.24h) 75 mg PO DAILY [facility] Last Admin: 11/10/24 08:43 Dose: 75 mg Home Medications ?Medication ?Instructions ?Recorded ?Confirmed ?Last Taken ?Type alprazolam 0.5 mg tablet 0.5 mg PO DAILY 11/08/2411/06/24 History bupropion HCl 300 mg 24 hr tablet, 300 mg PO DAILY 11/08/24 11/06/24 History extended release chlorthalidone 25 mg tablet 25 mg PO DAILY 11/08/2411/06/24 History desvenlafaxine succinate 50 mg 50 mg PO DAILY 11/08/24 11/08/24 11/06/24 History tablet,extended release 24 hr Physical Exam 2 Vital Signs: Vital Signs: Last Vital Signs Temp 97.9 F 11/10/24 15:51 Pulse 109 H 11/10/24 15:51 Resp 18 11/10/24 15:51 BP 131/72 11/10/24 15:51 Pulse Ox 93 11/10/24 15:51 O2 Del Method Room Air 11/10/24 15:51 O2 Flow Rate 2 11/09/24 04:00 BMI result Body Mass Index 22.7 Const: General: cooperative HEENT: Head: Yes normal to inspection Face and sinus: Yes normal facial exam Mouth: Normal oral and palatal mucosa present Teeth and gingiva: d entition normal Eyes: General: appearance normal, both eyes and all related structures P upils: Equal, round and reactive pupils present Resp: Effort & Inspection: normal respiratory effort Cardio: Rate: regular rate Rhythm: regular rhythm GI: Palpation (GI): Soft to palpation and nontender : General: Yes no CVA tenderness Back/Spine/Pelvis: Back: no CVA tenderness Skin: General skin exam: no rashes or lesions noted Neuro: General: moves all extremities Cranial nerves: Yes Equal, round and reactive pupils present Extrem: General: Yes normal to inspection Psych: Appearance: grossly normal Results Labs 11/10/24 07:46 11/10/24 07:46 Labs: Short CBC 11/10/24 Range/Units 07:46 WBC 15.0 H (4.8-10.8) X10*3/uL Hgb 12.5 (12.0-16.0) g/dl Hct 33.5 L (37.0-47.0) % Plt Count 230 (160-400) X10*3/uL BMP 11/10/24 07:46 Sodium 134 L Potassium 2.7 L* Chloride 104 Carbon Dioxide 23 BUN 14 Creatinine 1.11 Calcium 7.8 L Microbiology Microbiology Results: Microbiology 11/08/24 15:53 Urine clean catch Urine Culture - Preliminary Escherichia coli 11/08/24 16:58 Blood - Venous Blood Culture - Preliminary No growth after 24 hours. 11/08/24 16:59 Blood - Venous Blood Culture - Preliminary No growth after 24 hours. Assessment and Plan (1) Acute UTI: Status: Acute (2) Sepsis: Status: Acute Plan Probable UTI with associated cardiopulmonary infiltrate due to sepsis due to UTI. She has no shortness of breath or oxygen demand and think no pneumonia but early ARDS pattern due to sepsis from MDR E coli UTI. GFR is 42. Suggest Merem until improved and then po macrodantin complete 14 d course antibiotics. Stop Ceftriaxone and azithromycin
--- NOTE | 2024-11-10 17:56 | P.PNIM_ITS ---
Subjective Subjective Date of Service: 11/10/24 Interval History: Pt is somnolent and tired SOB and cough Denies palpitations or chest pain Urine growing multidrug resistant E coli White count increased today to 15.0 Review of Systems Review of Systems: Yes all other systems are reviewed and are negative Physical Exam 2 Exam: Exam: General: AOx3, somnolent, looks tired Resp: CTA bilaterally CVS: Irregularly irregular rhythm GI: +BS, NT, no distention Skin: Warm, dry Neuro: Cranial nerves II-XII grossly intact bilaterally. Motor grossly intact bilaterally Extremities: No edema Psych: Appropriate affect Vital Signs: Vital Signs: Last Vital Signs Temp 97.9 F 11/10/24 15:51 Pulse 109 H 11/10/24 15:51 Resp 18 11/10/24 15:51 BP 131/72 11/10/24 15:51 Pulse Ox 93 11/10/24 15:51 O2 Del Method Room Air 11/10/24 15:51 O2 Flow Rate 2 11/09/24 04:00 BMI result Body Mass Index 22.7 Objective Data Active Medications Acetaminophen (Acetaminophen 325 Mg Tablet) 650 mg PO Q6H PRN PRN Reason: Pain, Mild 1-3,fever,headache Last Admin: 11/08/24 19:49 Dose: 650 mg Documented By: EJ Alprazolam (Alprazolam 0.5 Mg Tablet) 0.5 mg PO DAILY [facility] Last Admin: 11/10/24 08:42 Dose: 0.5 mg Documented By: CELESTINE Apixaban (Apixaban 5 Mg Tablet) 5 mg PO BID [facility] Last Admin: 11/10/24 08:43 Dose: 5 mg Documented By: CELESTINE Bupropion HCl (Bupropion Hcl Xl 300 Mg Tab.Er.24h) 300 mg PO DAILY [facility] Last Admin: 11/10/24 08:43 Dose: 300 mg Documented By: CELESTINE Calcium Carbonate (Calcium Carbonate 750 Mg Tab.Chew) 750 mg PO Q4H PRN PRN Reason: Heartburn Lactated Ringer's (Lr) 1,000 mls @ 100 mls/hr IVCONT .Q10H [facility] Last Infusion: 11/10/24 12:58 Dose: Infused Documented By: CELESTINE Magnesium Hydroxide (Milk Of Magnesia 30 Ml Oral.Susp) 30 ml PO DAILY PRN PRN Reason: Constipation Melatonin (Melatonin 3 Mg Tablet) 6 mg PO BEDTIME PRN PRN Reason: Insomnia Meropenem (Meropenem 1 Gm Vial) 1 gm IVPUSH Q8H [facility] Last Admin: 11/10/24 17:42 Dose: 1 gm Documented By: CELESTINE Sodium Chloride (0.9 % Sodium Chloride Flush 3 Ml Syringe) 3 ml IVFLUSH QSHIFT [facility] Last Admin: 11/10/24 17:42 Dose: 3 ml Documented By: CELESTINE Venlafaxine HCl (Venlafaxine Hcl Er 75 Mg Cap.Er.24h) 75 mg PO DAILY [facility] Last Admin: 11/10/24 08:43 Dose: 75 mg Documented By: CELESTINE Labs 11/10/24 07:46 11/10/24 07:46 Labs: Laboratory Results - last 24 hr 11/10/24 11/10/24 06:45 07:46 MCV 84.8 MCH 31.6 MCHC 37.3 H RDW 13.3 Plt Count 230 MPV 10.1 Absolute Nucleated RBC 0.000 Nucleated RBC % (auto) 0.0 Anion Gap 10 L Estim Creat Clear Calc 52.7 Estimated GFR 49 Random Glucose 108 Calcium 7.8 L Troponin I High Sens 16.7 Microbiology Microbiology Results: Microbiology 11/08/24 15:53 Urine Culture - Preliminary Urine clean catch Escherichia coli 11/08/24 16:58 Blood Culture - Preliminary Blood - Venous No growth after 24 hours. 11/08/24 16:59 Blood Culture - Preliminary Blood - Venous No growth after 24 hours. Assessment and Plan (1) Hypokalemia: Status: Acute (2) Acute UTI: Status: Acute (3) Sepsis: Status: Acute Plan This is a 68-year-old female with history of hypertension who presents to the emergency department with generalized malaise found to have UTI, sepsis and severe hypokalemia Sepsis due to UTI no severe features UA growing MDR ecoli stop ceftriaxone, switch to meropenem ID consuted, will switch to Macrodantin once improved to complete a 14 day course of antibiotics Question of pneumonia Repeat CXR showed right basilar ground-glass opacity potentially representing pneumonia Pt asymptomatic, most likely early ARDS pattern due to sepsis from MDR E coli UTI Stop azithromycin and ceftriaxone per ID recommendations Hypokalemia due to chlorthalidone continues to be low at 2.7 today mag ok replace hold chlorthalidone follow BMP new onset AFib Reports previous brief episodes of palpitations Will start on Eliquis 5 mg b.i.d. Echocardiogram with normal LV size and function, EF 55-60% Cardiology consulted, suggest treating infection, replacing potassium, and starting on anticoagulation; hold on antiarrhythmics, will need outpatient additional workup HTN bp soft hold chlorthalidone for hypokalemia and soft blood pressure in the setting of sepsis Monitor blood pressure closely mood continue baseline meds Pt will require continued hospitalization for treatment of multidrug resistant UTI and possible pneumonia with IV antibiotics. Quality Stroke Does the patient have a stroke diagnosis?: No VTE Prior VTE?: No VTE Risk Level:: Medical - moderate - high VTE Device Contraindication: N/A - Device Ordered VTE Drug Contraindication: N/A - Med Ordered
[2024-11-10 20:00] VITALS: BP 116/68; PULSE 102; RESP 16; TEMP 37; O2SAT 94
[2024-11-11] VITALS (8 sets, daily range): BP systolic 101–120; BP diastolic 59–82; PULSE 79–109; RESP 16–18; TEMP 36.2–37.2; O2SAT 90–93
[2024-11-11] MEDS: 0.9 % Sodium Chloride Flush 3 ML SYRINGE IVFLUSH ×4 (01:54→23:07)
--- NOTE | 2024-11-11 04:46 | PC.NURSE ---
0500. Pt sleeping most of the night with exception of watching movie around [id number]. Patient declining bed alarms and is self ambulating to bedside commode. Bed linens changed and bath wipes provided for personal care. Contact Precautions in eppfect for ESBL in urine. Pt reports no difficulties with urination except for urgency at this time. Denies pain. Pt is in SR and VSS.
--- NOTE | 2024-11-11 07:23 | P.CDIM_ITS ---
PROVIDER RESPONSE TEXT: To clarify, the appropriate diagnosis supported by the clinical indicators: Other (explain): Mild hypocalcemia, unclear if acute or chronic QUERY TEXT: PHYSICIAN'S DOCUMENTATION REQUEST Date of Query: 11/10/2024 11:49 AM EDT Patient Name: Esme Alfonso Admit Date: 11/08/2024 Dear Kaylin STONE, A review of the medical record indicates additional documentation may be needed. Please review below and update the documentation accordingly. Clinical Indicators: LABS: calcium 8.0 7.8 L Based on the above, is there a diagnosis that correlates with these lab findings for this patient? Condition 1 (please specify) Labs indicate a diagnosis of (please specify) Other (explain) Clinically unable to determine (explain) Thank you, Daxa Nj, CCS, CDIS Use of terms such as suspected, likely, concern for, or probable (associated with a specific diagnosis that is being evaluated, monitored, or treated as if it exists) are acceptable and can be coded in the inpatient setting, when documented at the time of discharge. Please use your independent medical judgment in providing your response. THIS QUERY IS PART OF THE PERMANENT MEDICAL RECORD
[2024-11-11 07:25] LABS: Hematocrit 31.5 % (37.0-47.0); Hemoglobin 11.6 g/dl (12.0-16.0); Mean Corpuscular HGB Conc 36.8 g/dl (31.0-35.0); Mean Corpuscular Hemoglobin 31.3 pg (27.0-33.0); Mean Corpuscular Volume 84.9 fL (80.0-98.0); NRBC Abs Auto 0.000 X10*3/uL (0.0-0.012); NRBC Pct Auto 0.0 /100WBC (0.0-0.2); Platelet Count 231 X10*3/uL (160-400); Red Blood Count 3.71 X10*6/uL (4.20-5.50); White Blood Count 11.5 X10*3/uL (4.8-10.8)
[2024-11-11 07:44] LABS: Anion Gap 10 (12-20); Blood Urea Nitrogen 12 mg/dL (9-16); Calcium 7.8 mg/dL (8.4-10.2); Carbon Dioxide 24 mmol/L (22-29); Chloride 105 mmol/L (96-108); Creatinine Clr Calc Pharmacy 62.9; Estimated Glomerular Filt Rate 60; Potassium 3.1 mmol/L (3.3-5.1); Sodium 136 mmol/L (135-145)
[2024-11-11] MEDS: Potassium Chloride Packet 20 MEQ PACKET 40 MEQ PO ×2 (09:50→16:03)
[2024-11-11] MEDS: buPROPion HCl XL 300 MG TAB.ER.24H PO (09:51)
[2024-11-11] MEDS: Venlafaxine HCl ER 75 MG CAP.ER.24H PO (09:52)
[2024-11-11] MEDS: Metoprolol Tartrate 12.5 MG HALFTAB PO ×2 (12:09→22:49)
--- NOTE | 2024-11-11 17:30 | HO.PM.IMPN ---
Subjective Subjective Date of Service: 11/11/24 Interval History: Remains tired, somnolent Cough worse, some SOB No CP Denies N/V/D/ abd pain Review of Systems Review of Systems: Yes all other systems are reviewed and are negative Physical Exam Exam: Exam: General: AOx3, somnolent, looks tired Resp: CTA bilaterally CVS: Irregularly irregular rhythm GI: +BS, NT, no distention Skin: Warm, dry Neuro: Cranial nerves II-XII grossly intact bilaterally. Motor grossly intact bilaterally Extremities: No edema Psych: Appropriate affect Vital Signs: Vital Signs: Last Vital Signs Temp 98.5 F 11/11/24 15:57 Pulse 87 11/11/24 15:57 Resp 18 11/11/24 15:57 BP 113/68 11/11/24 15:57 Pulse Ox 92 11/11/24 15:57 O2 Del Method Room Air 11/11/24 15:57 O2 Flow Rate 2 11/09/24 04:00 BMI result Body Mass Index 22.7 Objective Data Active Medications Acetaminophen (Acetaminophen 325 Mg Tablet) 650 mg PO Q6H PRN PRN Reason: Pain, Mild 1-3,fever,headache Last Admin: 11/11/24 16:13 Dose: 650 mg Documented By: VIGNESH Alprazolam (Alprazolam 0.5 Mg Tablet) 0.5 mg PO DAILY [facility] Last Admin: 11/11/24 09:52 Dose: 0.5 mg Documented By: VIGNESH Apixaban (Apixaban 5 Mg Tablet) 5 mg PO BID [facility] Last Admin: 11/11/24 09:51 Dose: 5 mg Documented By: VIGNESH Bupropion HCl (Bupropion Hcl Xl 300 Mg Tab.Er.24h) 300 mg PO DAILY [facility] Last Admin: 11/11/24 09:51 Dose: 300 mg Documented By: VIGNESH Calcium Carbonate (Calcium Carbonate 750 Mg Tab.Chew) 750 mg PO Q4H PRN PRN Reason: Heartburn Magnesium Hydroxide (Milk Of Magnesia 30 Ml Oral.Susp) 30 ml PO DAILY PRN PRN Reason: Constipation Melatonin (Melatonin 3 Mg Tablet) 6 mg PO BEDTIME PRN PRN Reason: Insomnia Meropenem (Meropenem 1 Gm Vial) 1 gm IVPUSH Q8H [facility] Last Admin: 11/11/24 09:50 Dose: 1 gm Documented By: VIGNESH Metoprolol Tartrate (Metoprolol Tartrate 12.5 Mg Halftab) 12.5 mg PO BID [facility]; Protocol Last Admin: 11/11/24 12:09 Dose: 12.5 mg Documented By: VIGNESH Sodium Chloride (0.9 % Sodium Chloride Flush 3 Ml Syringe) 3 ml IVFLUSH QSHIFT [facility] Last Admin: 11/11/24 16:04 Dose: 3 ml Documented By: VIGNESH Venlafaxine HCl (Venlafaxine Hcl Er 75 Mg Cap.Er.24h) 75 mg PO DAILY [facility] Last Admin: 11/11/24 09:52 Dose: 75 mg Documented By: VIGNESH Labs 11/11/24 06:26 11/11/24 06:26 Labs: Laboratory Results - last 24 hr 11/11/24 06:26 MCV 84.9 MCH 31.3 MCHC 36.8 H RDW 13.2 Plt Count 231 MPV 10.0 Absolute Nucleated RBC 0.000 Nucleated RBC % (auto) 0.0 Anion Gap 10 L Estim Creat Clear Calc 62.9 Estimated GFR 60 Random Glucose 102 Calcium 7.8 L Microbiology Microbiology Results: Microbiology 11/08/24 15:53 Urine Culture - Final Urine clean catch Escherichia coli 11/08/24 16:58 Blood Culture - Preliminary Blood - Venous No growth after 48 hours. 11/08/24 16:59 Blood Culture - Preliminary Blood - Venous No growth after 48 hours. Assessment and Plan (1) Acute UTI: Status: Acute (2) Sepsis: Status: Acute (3) New onset a-fib: Status: Acute Plan This is a 68-year-old female with history of hypertension who presents to the emergency department with generalized malaise found to have UTI, sepsis and severe hypokalemia Sepsis due to UTI no severe features UA growing MDR ecoli stop ceftriaxone, switch to meropenem ID consuted, will switch to Macrodantin once improved to complete a 14 day course of antibiotics Question of pneumonia Repeat CXR showed airspace opacity in left lower lobe consistent with pneumonia Pt with increased cough, SOB Will add azithromycin Hypokalemia due to chlorthalidone continues to be low at 3.1 today replace as needed hold chlorthalidone follow BMP new onset AFib Reports previous brief episodes of palpitations Will start on Eliquis 5 mg b.i.d. Echocardiogram with normal LV size and function, EF 55-60% Cardiology consulted, suggest treating infection, replacing potassium, and starting on anticoagulation; hold on antiarrhythmics, will need outpatient additional workup Pt with HR occasionally in the 110-120s; will start on metoprolol 12.5mg bid HTN bp soft hold chlorthalidone for hypokalemia and soft blood pressure in the setting of sepsis Monitor blood pressure closely mood continue baseline meds Pt will require continued hospitalization for treatment of multidrug resistant UTI and possible pneumonia with IV antibiotics. Quality Stroke Does the patient have a stroke diagnosis?: No VTE Prior VTE?: No VTE Risk Level:: Medical - moderate - high VTE Device Contraindication: N/A - Device Ordered VTE Drug Contraindication: N/A - Med Ordered
[2024-11-11] MEDS: Potassium Chloride ER 20 MEQ TAB.ER.PRT PO (22:49)
[2024-11-12] VITALS (7 sets, daily range): BP systolic 108–120; BP diastolic 66–76; PULSE 76–92; RESP 14–18; TEMP 36.1–37.2; O2SAT 90–92
[2024-11-12 07:46] LABS: Hematocrit 30.6 % (37.0-47.0); Hemoglobin 11.1 g/dl (12.0-16.0); Mean Corpuscular HGB Conc 36.3 g/dl (31.0-35.0); Mean Corpuscular Hemoglobin 31.4 pg (27.0-33.0); Mean Corpuscular Volume 86.7 fL (80.0-98.0); NRBC Abs Auto 0.000 X10*3/uL (0.0-0.012); NRBC Pct Auto 0.0 /100WBC (0.0-0.2); Platelet Count 289 X10*3/uL (160-400); Red Blood Count 3.53 X10*6/uL (4.20-5.50); White Blood Count 7.7 X10*3/uL (4.8-10.8)
[2024-11-12 08:25] LABS: Anion Gap 10 (12-20); Blood Urea Nitrogen 13 mg/dL (9-16); Calcium 8.1 mg/dL (8.4-10.2); Carbon Dioxide 25 mmol/L (22-29); Chloride 107 mmol/L (96-108); Creatinine Clr Calc Pharmacy 64.9; Estimated Glomerular Filt Rate > 60; Potassium 4.4 mmol/L (3.3-5.1); Sodium 138 mmol/L (135-145)
[2024-11-12] MEDS: 0.9 % Sodium Chloride Flush 3 ML SYRINGE IVFLUSH ×3 (11:22→19:56)
[2024-11-12] MEDS: buPROPion HCl XL 300 MG TAB.ER.24H PO (11:22)
[2024-11-12] MEDS: Potassium Chloride ER 20 MEQ TAB.ER.PRT PO (11:23)
[2024-11-12] MEDS: Venlafaxine HCl ER 75 MG CAP.ER.24H PO (11:23)
[2024-11-12] MEDS: Metoprolol Tartrate 12.5 MG HALFTAB PO ×2 (11:29→19:56)
--- NOTE | 2024-11-12 13:52 | MHC.CM.PN ---
Per rounds, pt. is not ready to DC. She requires further tx for multi drug resistant UTI. Anticipate she will be ready to DC tomorrow.
--- NOTE | 2024-11-12 17:20 | P.PNIM_ITS ---
Subjective Subjective Date of Service: 11/12/24 Interval History: Appears improved from prior Still has dry cough No significant SOB or difficulty breathing Still tired, but less somnolent Potassium normal today Pt noted to be back in normal sinus rhythm since yesterday afternoon Review of Systems Review of Systems: Yes all other systems are reviewed and are negative Physical Exam 2 Exam: Exam: General: AOx3, no acute distress Resp: CTA bilaterally CVS: S1, S2, RRR GI: +BS, NT, no distention Skin: Warm, dry Neuro: Cranial nerves II-XII grossly intact bilaterally. Motor grossly intact bilaterally Extremities: No edema Psych: Appropriate affect Vital Signs: Vital Signs: Last Vital Signs Temp 99 F 11/12/24 16:00 Pulse 87 11/12/24 16:00 Resp 14 11/12/24 16:00 BP 108/66 11/12/24 16:00 Pulse Ox 91 L 11/12/24 16:00 O2 Del Method Room Air 11/12/24 16:00 O2 Flow Rate 2 11/09/24 04:00 BMI result Body Mass Index 22.7 Objective Data Active Medications Acetaminophen (Acetaminophen 325 Mg Tablet) 650 mg PO Q6H PRN PRN Reason: Pain, Mild 1-3,fever,headache Last Admin: 11/11/24 16:13 Dose: 650 mg Documented By: VIGNESH Alprazolam (Alprazolam 0.5 Mg Tablet) 0.5 mg PO DAILY [facility] Last Admin: 11/12/24 11:22 Dose: 0.5 mg Documented By: BRAULIO Apixaban (Apixaban 5 Mg Tablet) 5 mg PO BID [facility] Last Admin: 11/12/24 11:23 Dose: 5 mg Documented By: BRAULIO Bupropion HCl (Bupropion Hcl Xl 300 Mg Tab.Er.24h) 300 mg PO DAILY [facility] Last Admin: 11/12/24 11:22 Dose: 300 mg Documented By: BRAULIO Calcium Carbonate (Calcium Carbonate 750 Mg Tab.Chew) 750 mg PO Q4H PRN PRN Reason: Heartburn Azithromycin 500 mg/ Sodium (Chloride) 250 mls @ 125 mls/hr IV Q24H [facility] Last Infusion: 11/12/24 00:17 Dose: Infused Documented By: TAMIKO Magnesium Hydroxide (Milk Of Magnesia 30 Ml Oral.Susp) 30 ml PO DAILY PRN PRN Reason: Constipation Melatonin (Melatonin 3 Mg Tablet) 6 mg PO BEDTIME PRN PRN Reason: Insomnia Meropenem (Meropenem 1 Gm Vial) 1 gm IVPUSH Q8H [facility] Last Admin: 11/12/24 11:22 Dose: 1 gm Documented By: FIGDIAN Metoprolol Tartrate (Metoprolol Tartrate 12.5 Mg Halftab) 12.5 mg PO BID [facility]; Protocol Last Admin: 11/12/24 11:29 Dose: 12.5 mg Documented By: FIGDIAN Sodium Chloride (0.9 % Sodium Chloride Flush 3 Ml Syringe) 3 ml IVFLUSH QSHIFT [facility] Last Admin: 11/12/24 11:22 Dose: 3 ml Documented By: FIGDIAN Venlafaxine HCl (Venlafaxine Hcl Er 75 Mg Cap.Er.24h) 75 mg PO DAILY [facility] Last Admin: 11/12/24 11:23 Dose: 75 mg Documented By: FIGDIAN Labs 11/12/24 07:04 11/12/24 07:04 Labs: Laboratory Results - last 24 hr 11/12/24 07:04 MCV 86.7 MCH 31.4 MCHC 36.3 H RDW 14.0 Plt Count 289 D MPV 9.5 Absolute Nucleated RBC 0.000 Nucleated RBC % (auto) 0.0 Anion Gap 10 L Estim Creat Clear Calc 64.9 Estimated GFR > 60 Random Glucose 99 Calcium 8.1 L Assessment and Plan (1) Acute UTI: Status: Acute (2) Hypokalemia: Status: Acute (3) New onset a-fib: Status: Acute Plan This is a 68-year-old female with history of hypertension who presents to the emergency department with generalized malaise found to have UTI, sepsis and severe hypokalemia Sepsis due to UTI no severe features UA growing MDR ecoli Initially treated with ceftriaxone, switch to meropenem on 11/10 ID consulted, will switch to Macrodantin once improved to complete a 14 day course of antibiotics Pneumonia Repeat CXR showed airspace opacity in left lower lobe consistent with pneumonia Pt with increased cough, SOB Will add azithromycin new onset AFib Reports previous brief episodes of palpitations Will start on Eliquis 5 mg b.i.d. Echocardiogram with normal LV size and function, EF 55-60% Cardiology consulted, suggest treating infection, replacing potassium, and starting on anticoagulation; hold on antiarrhythmics, and will need outpatient additional workup Pt with HR occasionally in the 110-120s started on metoprolol 12.5mg bid with conversion to NSR soon after Hypokalemia Multifactorial: due to chlorthalidone use and reduced po intake WNL today supplement as needed stop chlorthalidone follow BMP HTN stop chlorthalidone, switch to metoprolol 12.5mg bid Monitor blood pressure closely mood continue baseline meds Pt will require continued hospitalization for treatment of multidrug resistant UTI and possible pneumonia with IV antibiotics. Pt should be able to discharge tomorrow. Quality Stroke Does the patient have a stroke diagnosis?: No VTE Prior VTE?: No VTE Risk Level:: Medical - moderate - high VTE Device Contraindication: N/A - Device Ordered VTE Drug Contraindication: N/A - Med Ordered
[2024-11-13 03:02] VITALS: BP 112/68; PULSE 81; RESP 16; TEMP 36.6; O2SAT 92
[2024-11-13 07:47] VITALS: BP 115/66; PULSE 76; RESP 18; TEMP 36.6; O2SAT 93
[2024-11-13 07:52] LABS: Anion Gap 11 (12-20); Blood Urea Nitrogen 14 mg/dL (9-16); Calcium 8.2 mg/dL (8.4-10.2); Carbon Dioxide 24 mmol/L (22-29); Chloride 107 mmol/L (96-108); Creatinine Clr Calc Pharmacy 63.6; Estimated Glomerular Filt Rate > 60; Potassium 4.1 mmol/L (3.3-5.1); Sodium 138 mmol/L (135-145)
[2024-11-13] MEDS: buPROPion HCl XL 300 MG TAB.ER.24H PO (09:22)
[2024-11-13] MEDS: Venlafaxine HCl ER 75 MG CAP.ER.24H PO (09:22)
[2024-11-13] MEDS: Metoprolol Tartrate 12.5 MG HALFTAB PO ×2 (09:22→21:46)
[2024-11-13] MEDS: 0.9 % Sodium Chloride Flush 3 ML SYRINGE IVFLUSH ×2 (09:23→17:33)
[2024-11-13 11:56] VITALS: BP 103/68; PULSE 77; RESP 18; TEMP 36.6; O2SAT 92
--- NOTE | 2024-11-13 13:45 | MHC.CM.PN ---
PER HOSPITALIST, PT IS MEDICALLY CLEARED FOR DISCHARGE TO STR. THIS CM MET WITH PT TO DISCUSS DISCHARGE PLANS/STR OPTIONS. LIST OF SNF'S PRINTED FROM [facility] FOR PT TO REVIEW. PTS FIRST CHOICE IS [facility], REFERRAL SENT. [facility] CAN OFFER PT A BED TOMORROW 11/14. HOSPITALIST UPDATED. DCP: DC TO [facility] FOR STR VIA BLS TOMORROW 11/14. SECOND IMM GIVEN 11/13.
[2024-11-13 16:00] VITALS: BP 110/74; PULSE 82; RESP 18; TEMP 37; O2SAT 94
--- NOTE | 2024-11-13 16:26 | HO.PM.IMPN ---
Subjective Subjective Date of Service: 11/13/24 Interval History: Feels tired, reports slept poorly last night Continued nonproductive cough No significant SOB or difficulty breathing Pt seen and evaluated by Physical therapy yesterday who suggested home with services if she was able to tolerate and use a wheeled walker Pt, however reports her home is not well suited for a wheeled walker and she would like to go to short-term rehab Review of Systems Review of Systems: Yes all other systems are reviewed and are negative Physical Exam Exam: Exam: General: AOx3, no acute distress Resp: CTA bilaterally CVS: S1, S2, RRR GI: +BS, NT, no distention Skin: Warm, dry Neuro: Cranial nerves II-XII grossly intact bilaterally. Motor grossly intact bilaterally Extremities: No edema Psych: Appropriate affect Vital Signs: Vital Signs: Last Vital Signs Temp 97.9 F 11/13/24 11:56 Pulse 77 11/13/24 11:56 Resp 18 11/13/24 11:56 BP 103/68 11/13/24 11:56 Pulse Ox 92 11/13/24 11:56 O2 Del Method Room Air 11/13/24 11:56 O2 Flow Rate 2 11/09/24 04:00 BMI result Body Mass Index 22.7 Objective Data Active Medications Acetaminophen (Acetaminophen 325 Mg Tablet) 650 mg PO Q6H PRN PRN Reason: Pain, Mild 1-3,fever,headache Last Admin: 11/11/24 16:13 Dose: 650 mg Documented By: VIGNESH Alprazolam (Alprazolam 0.5 Mg Tablet) 0.5 mg PO DAILY [facility] Last Admin: 11/13/24 09:22 Dose: 0.5 mg Documented By: JAVY Apixaban (Apixaban 5 Mg Tablet) 5 mg PO BID [facility] Last Admin: 11/13/24 09:22 Dose: 5 mg Documented By: JAVY Bupropion HCl (Bupropion Hcl Xl 300 Mg Tab.Er.24h) 300 mg PO DAILY [facility] Last Admin: 11/13/24 09:22 Dose: 300 mg Documented By: JAVY Calcium Carbonate (Calcium Carbonate 750 Mg Tab.Chew) 750 mg PO Q4H PRN PRN Reason: Heartburn Azithromycin 500 mg/ Sodium (Chloride) 250 mls @ 125 mls/hr IV Q24H [facility] Last Infusion: 11/12/24 20:38 Dose: Infused Documented By: GENO Magnesium Hydroxide (Milk Of Magnesia 30 Ml Oral.Susp) 30 ml PO DAILY PRN PRN Reason: Constipation Melatonin (Melatonin 3 Mg Tablet) 6 mg PO BEDTIME PRN PRN Reason: Insomnia Meropenem (Meropenem 1 Gm Vial) 1 gm IVPUSH Q8H [facility] Last Admin: 11/13/24 09:22 Dose: 1 gm Documented By: JAVY Metoprolol Tartrate (Metoprolol Tartrate 12.5 Mg Halftab) 12.5 mg PO BID [facility]; Protocol Last Admin: 11/13/24 09:22 Dose: 12.5 mg Documented By: JAVY Sodium Chloride (0.9 % Sodium Chloride Flush 3 Ml Syringe) 3 ml IVFLUSH QSHIFT [facility] Last Admin: 11/13/24 09:23 Dose: 3 ml Documented By: JAVY Venlafaxine HCl (Venlafaxine Hcl Er 75 Mg Cap.Er.24h) 75 mg PO DAILY [facility] Last Admin: 11/13/24 09:22 Dose: 75 mg Documented By: JAVY Labs 11/12/24 07:04 11/13/24 06:42 Labs: Laboratory Results - last 24 hr 11/13/24 11/13/24 06:42 06:44 Hold Purple Top SEE NOTE Anion Gap 11 L Estim Creat Clear Calc 63.6 Estimated GFR > 60 Random Glucose 95 Calcium 8.2 L Assessment and Plan (1) PAF (paroxysmal atrial fibrillation): Status: Acute (2) Hypokalemia: Status: Acute (3) Acute UTI: Status: Acute Plan This is a 68-year-old female with history of hypertension who presents to the emergency department with generalized malaise found to have UTI, sepsis and severe hypokalemia Sepsis due to UTI no severe features UA growing MDR ecoli Initially treated with ceftriaxone, switch to meropenem on 11/10 ID consulted, will switch to Macrodantin once improved to complete a 14 day course of antibiotics Pneumonia Repeat CXR showed airspace opacity in left lower lobe consistent with pneumonia Pt with increased cough, SOB Continue azithromycin new onset AFib Reports previous brief episodes of palpitations Started on on Eliquis 5 mg b.i.d. Echocardiogram with normal LV size and function, EF 55-60% Cardiology consulted, suggest treating infection, replacing potassium, and starting on anticoagulation; hold on antiarrhythmics, and will need outpatient additional workup Pt with HR occasionally in the 110-120s started on metoprolol 12.5mg bid with conversion to NSR soon after Continues to be in NSR Hypokalemia Multifactorial: due to chlorthalidone use and reduced po intake WNL x2 days supplement as needed stop chlorthalidone follow BMP HTN stop chlorthalidone, switch to metoprolol 12.5mg bid Monitor blood pressure closely mood continue baseline meds Pt will require continued hospitalization for treatment of multidrug resistant UTI and possible pneumonia with IV antibiotics. Pt seen and evaluated by Physical therapy and will go to short-term rehab tomorrow. Quality Stroke Does the patient have a stroke diagnosis?: No VTE Prior VTE?: No VTE Risk Level:: Medical - moderate - high VTE Device Contraindication: N/A - Device Ordered VTE Drug Contraindication: N/A - Med Ordered
[2024-11-13 19:52] VITALS: BP 102/63; PULSE 85; RESP 16; TEMP 36.8; O2SAT 92
[2024-11-14] VITALS: BP 120/77; PULSE 73; RESP 16; TEMP 37; O2SAT 93
[2024-11-14] MEDS: 0.9 % Sodium Chloride Flush 3 ML SYRINGE IVFLUSH ×2 (00:30→08:43)
[2024-11-14 03:36] VITALS: BP 128/81; PULSE 74; RESP 16; TEMP 36.7; O2SAT 93
[2024-11-14 07:38] VITALS: BP 134/77; PULSE 76; RESP 18; TEMP 36.2; O2SAT 93
[2024-11-14] MEDS: buPROPion HCl XL 300 MG TAB.ER.24H PO (08:43)
[2024-11-14] MEDS: Metoprolol Tartrate 12.5 MG HALFTAB PO (08:43)
[2024-11-14] MEDS: Venlafaxine HCl ER 75 MG CAP.ER.24H PO (08:43)
--- NOTE | 2024-11-14 10:09 | MHC.CM.PN ---
THIS CM MET WITH PT AND HOSPITALIST TO DISCUSS DISCHARGE PLAN, PT REMAINS MEDICALLY CLEARED FOR DISCHARGE. PT STATES SHE NO LONGER WANTS TO GO TO [facility], AND [facility] (HER 1ST CHOICE YESTERDAY) IS WAY TOO FAR FOR HER. PT WILL DISCHARGE HOME TODAY WITH [facility]. SECOND IMM GIVEN YESTERDAY, 11/13.
--- NOTE | 2024-11-14 11:41 | P.DS_ITS ---
DS: Providers Provider Date of Service: 11/14/24 Date of admission: 11/08/24 17:31 Date of discharge: 11/14/24 Primary care physician: Neptali Amador MD Consults: 11/09/24 07:13 Consult to Cardiology Routine Consulting Provider: [facility] Reason for consultation: ?New AFib 11/10/24 08:50 Consult to Infectious Diseases Routine Consulting Provider: [facility] Reason for consultation: Resistant UTI DS: Diagnosis Discharge Diagnosis (1) PAF (paroxysmal atrial fibrillation): Status: Acute (2) Hypokalemia: Status: Acute (3) Acute UTI: Status: Acute DS: Summary Hospital Course Hospital Course: From admission HPI Date of Service: 11/08/24 Attending physician on admission: Debbie Guillermo Chief Complaint: malaise This is a 68-year-old female who presents to the emergency department for malaise. She states that she has been feeling ?weird? since Friday. She reports feeling dizzy and weak, she reports decreased oral intake and associated nausea. Over the weekend she reports having chills. She did not feel feverish. She did not have any urinary symptoms. She denies abdominal pain or back pain. In the emergency department she was noted to have a fever of 102.9. Lab work was significant for leukocytosis of 13.4 as well as a potassium level of 2.3. She states that she takes potassium supplementation that she gets [id number] although she does not know the dose that she takes. She has been told in the past and her potassium levels are low. She received IV ceftriaxone for the treatment of urinary tract infection, she received oral and IV potassium supplementation in the decision was made to admit her to the hospital for further management. Hospital course Pt was admitted to the hospital for UTI with sepsis without severe features as well as new onset AFib. Urine cultures grew multidrug resistant E coli. Pt was seen and evaluated by Infectious Disease who suggested treating with meropenem while in the hospital then discharging on oral Macrodantin 100 mg b.i.d. for total of 14 days of coverage. Pt complained of cough and CXR was concerning for possible superimposed pneumonia for which azithromycin was added to the meropenem. The pt will be discharged on azithromycin 500 mg daily x3 days and cefuroxime 500 mg twice a day x3 days. Pyridium onset AFib pt was seen and evaluated by Cardiology who suggested starting on Eliquis 5 mg b.i.d. pt was noted to have elevated HR in the 110s to 120s with exertion, and was started on metoprolol 12.5 mg b.i.d.. Pt soon after starting metoprolol converted to normal sinus rhythm which was sustained throughout the remainder of hospital stay. Labs were significant for persistent hypokalemia which was secondary to chlorthalidone use in the setting of reduced p.o. intake. Pt was supplemented both IV and oral potassium. Chlorthalidone was stopped and patient's potassium has been normalized for the past 3 days. Pt was seen and evaluated by Physical therapy who recommended discharge to home with services and using a wheeled walker for ambulation. Pt should follow up with her PCP in 1 week for routine post hospitalization visit and repeat labs, as well as with Dr. Herr in Cardiology in 2-3 weeks for management of new onset AFib. Additional details co [facility] hospital stay as listed below. Pt should stop chlorthalidone, start metoprolol 12.5 mg b.i.d., Eliquis 5 mg b.i.d., and resume all other home medications. This is a 68-year-old female with history of hypertension who presents to the emergency department with generalized malaise found to have UTI, sepsis and severe hypokalemia Sepsis due to UTI no severe features UA growing MDR ecoli Initially treated with ceftriaxone, switch to meropenem on 11/10 ID consulted, will switch to Macrodantin once improved to complete a 14 day course of antibiotics Pneumonia Repeat CXR showed airspace opacity in left lower lobe consistent with pneumonia Pt with increased cough, SOB Continue azithromycin, switch to cefuroxime and azithromycin p.o. at discharge for 7 day course new onset AFib Reports previous brief episodes of palpitations Started on on Eliquis 5 mg b.i.d. Echocardiogram with normal LV size and function, EF 55-60% Cardiology consulted, suggest treating infection, replacing potassium, and starting on anticoagulation; hold on antiarrhythmics, and will need outpatient additional workup Pt with HR occasionally in the 110-120s started on metoprolol 12.5mg bid with conversion to NSR soon after Continues to be in NSR Hypokalemia Multifactorial: due to chlorthalidone use and reduced po intake WNL x3 days supplement as needed stop chlorthalidone follow BMP HTN stop chlorthalidone, switch to metoprolol 12.5mg bid Monitor blood pressure closely mood continue baseline meds Time Attestation Discharge Coordination Time (in mins): 35 Quality: Safe Use of Opioids Does Pt have an Active Cancer Diagnosis on the Problem List?: No Quality: Stroke Does the patient have a stroke diagnosis?: No Physical Exam Exam: Exam: General: AOx3, no acute distress Resp: CTA bilaterally CVS: S1, S2, RRR GI: +BS, NT, no distention Skin: Warm, dry Neuro: Cranial nerves II-XII grossly intact bilaterally. Motor grossly intact bilaterally Extremities: No edema Psych: Appropriate affect Vital Signs: Vital Signs: Last Vital Signs Temp 97.1 F 11/14/24 07:38 Pulse 76 11/14/24 07:38 Resp 18 11/14/24 07:38 BP 134/77 11/14/24 07:38 Pulse Ox 93 11/14/24 07:38 O2 Del Method Room Air 11/14/24 07:38 O2 Flow Rate 2 11/09/24 04:00 BMI result Body Mass Index 22.7 Discharge Plan Discharge Anticipated Discharge Date/Time: 11/14/24 11:07 Patient Disposition: Home Health Service Discharge Diagnosis: Acute multidrug resistant UTI with sepsis Referrals: [facility] [Outside] - 1 Week Neptali Amador MD [Primary Care Provider, Internal Medicine] - 1 Week Rasta Herr MD [Physician, Cardiology] - 1 Week Referral Note: New onset AFib Discharge Medications: New metoprolol tartrate 25 mg tablet 12.5 mg PO BID Qty: 90 0RF Rx Instructions: Take one half tablet twice a day Eliquis 5 mg tablet 5 mg PO BID Qty: 180 0RF Rx Instructions: Take one tablet twice a day azithromycin 500 mg tablet 500 mg PO DAILY Qty: 3 0RF Rx Instructions: Take one tablet daily for the next 3 days, ending on 11/16 cefuroxime axetil 500 mg tablet 500 mg PO BID Qty: 5 0RF Rx Instructions: Take one tablet twice a day with food for the next two days, starting the evening of 11/14 and ending the evening of 11/16 nitrofurantoin macrocrystal 100 mg capsule 100 mg PO BID Qty: 20 0RF Rx Instructions: must administer with a meal/food. Take one capsule twice a day for the next 10 days, starting the evening of 11/14 and ending the evening of 11/24 Continued alprazolam 0.5 mg tablet 0.5 mg PO DAILY desvenlafaxine succinate 50 mg tablet extended release 24 hr 50 mg PO DAILY bupropion HCl 300 mg tablet extended release 24 hr 300 mg PO DAILY Discontinued chlorthalidone 25 mg tablet 25 mg PO DAILY Discharge Orders: Discharge Order (Routine); Ordered 11/14/24 Ordered By: Kaylin Duncan Activity on Discharge: As tolerated Stand Alone Forms: Patient Portal Discharge page Print Language: Divehi Care Plan Goals: See below Health Concerns: Multidrug resistant UTI Sepsis Pneumonia New onset atrial fibrillation Physical deconditioning Plan of Treatment: You were admitted to the hospital for UTI with sepsis as well as new onset AFib. Workup indicated UTI was multidrug resistant, and you were seen and evaluated by Infectious Disease who suggested treating you with IV antibiotics in the hospital and then transitioning at discharge to oral nitrofurantoin 100 mg b.i.d. for a total of 14 days. For new onset AFib you were started on Eliquis for anticoagulation and stroke prevention as well as metoprolol 12.5 mg twice a day. During hospital stay you converted back to normal sinus rhythm and has maintained that since. You were also noted to be hypokalemic which was likely due to chlorthalidone use in the setting of reduced p.o. intake. You were treated with both IV and oral supplementation, and potassium has been normal the past 3 days. Chest x-ray was concerning for possible pneumonia, and you has been having increased cough and SOB for the past few days. You were treated with IV antibiotics and will be discharged home with a short course of oral antibiotics to complete a course of 7 days. -- for multi-drug resistant UTI, take nitrofurantoin 100 mg twice a day for the next 10 days, starting the evening of 11/14 and ending the evening of 11/24 -- take cefuroxime 500 mg twice a day with food for the next 2 days, starting the evening of 11/14 and adding the evening of 11/16 -- take azithromycin 500 mg once daily with food for the next 3 days, starting the evening of 11/14 and ending the evening of 11/16 -- take Eliquis 5 mg twice a day for stroke prevention -- take metoprolol 12.5 mg twice a day for rate control and hypertension -- stop taking chlorthalidone -- follow up with PCP in 1 week for routine post hospitalization visit and repeat labs -- follow up with Dr. Herr in Cardiology in 2-3 weeks for management of new onset AFib with RVR -- you were seen and evaluated by PT who recommended using a wheeled walker at home -- you will be sent home with PT services Assessment: See discharge summary
--- NOTE | 2024-11-14 11:43 | P.F2F_ITS ---
Service Date Service Date: 11/14/24 Encounter Date of encounter: 11/14/24 Reasons for Services Signs and symptoms assessed: Generalized weakness. Physical deconditioning after prolonged hospital stay. Multiple new medications and medication adjustments. Reason for intermediate: medication management Reason for physical therapy: home safety and mobility Homebound: Leaving the home is medically contraindicated at this time without the asist of a device and/or another person due th the listed conditions above and below. Reason homebound: unsteady gait / fall risk, leg weakness and poor balance / fall risk Certification: Based on the above findings, I certify that this patient is confined to the home and needs intermittent intermediate care, physical therapy and/or speech therapy, or continues to need occupational therapy. The patient is under my care, and I have initiated the establishment of the plan of care. The patient will be followed by a physician who will periodically review the plan of care. Time Spent With Patient Time: Total time managing care of this patient today ____ minutes.
== END 2024-11-14 11:50 | disposition home health service (06) | DRG 871 ==
LOC: HO.ED 16:42 → HO.EDOVER 17:35 → HO.IMC 11-09 14:33
PROVIDERS: Hospitalist; Admitting Provider Physician Assistant Medical; Emergency Provider Emergency Medicine; PCP Internal Medicine; Visit Provider Student in an Organized Health Care Education/Training Program
DX: A41.51 Sepsis due to Escherichia coli [E. coli] (principal); J18.9 Pneumonia, unspecified organism; Z16.24 Resistance to multiple antibiotics; N39.0 Urinary tract infection, site not specified; I10 Essential (primary) hypertension; E83.51 Hypocalcemia; E87.6 Hypokalemia; F17.210 Nicotine dependence, cigarettes, uncomplicated; T50.2X5A Adverse effect of carbonic-anhydrase inhibitors, benzothiadiazides and other diuretics, initial encounter; B96.20 Unspecified Escherichia coli [E. coli] as the cause of diseases classified elsewhere; Z71.6 Tobacco abuse counseling; Z20.822 Contact with and (suspected) exposure to COVID-19; Z79.899 Other long term (current) drug therapy
CPT/HCPCS: 36415; 70450; 71045; 80048; 80053; 80076; 81001; 83605; 83690; 83735; 83880; 84100; 84484; 85025; 85027; 87040; 87086; 87088; 87186; 87637; 93005; 93306; 97162; 99285; J0131; J0456; J0696; J1650; J2185; J3480; J7120; Q9957

== ENCOUNTER → 2024-11-08 12:57 | Outpatient (BNV) | payer MEDICARE, SELFPAY | PROVIDERS: Emergency Provider Emergency Medicine; PCP Internal Medicine; Visit Provider Radiology Diagnostic Radiology | DX: R41.0 Disorientation, unspecified (principal); R91.8 Other nonspecific abnormal finding of lung field | CPT/HCPCS: 70450; 71045 ==

== ENCOUNTER 2024-11-08 17:31 | Outpatient (BNV) | payer MEDICARE, SELFPAY | END 2024-11-11 12:20 | PROVIDERS: Admitting Provider Physician Assistant Medical; Emergency Provider Emergency Medicine; PCP Internal Medicine; Visit Provider Radiology Diagnostic Radiology | DX: J18.9 Pneumonia, unspecified organism (principal) | CPT/HCPCS: 71045 ==

== ENCOUNTER 2024-11-08 17:31 | Outpatient (BNV) | payer MEDICARE, SELFPAY | END 2024-11-09 07:09 | PROVIDERS: Admitting Provider Physician Assistant Medical; Emergency Provider Emergency Medicine; PCP Internal Medicine; Visit Provider Internal Medicine Cardiovascular Disease | DX: I48.91 Unspecified atrial fibrillation (principal) | CPT/HCPCS: 93010 ==

== ENCOUNTER → 2024-11-08 17:31 | Outpatient (BNV) | payer MEDICARE, SELFPAY | PROVIDERS: Admitting Provider Physician Assistant Medical; Emergency Provider Emergency Medicine; PCP Internal Medicine; Visit Provider Physician Assistant Medical | DX: E87.6 Hypokalemia (principal); N39.0 Urinary tract infection, site not specified; A41.9 Sepsis, unspecified organism | CPT/HCPCS: 99223; 99232; 99233 ==

== ENCOUNTER → 2024-11-08 17:31 | Outpatient (BNV) | payer MEDICARE, SELFPAY | PROVIDERS: Admitting Provider Physician Assistant Medical; Emergency Provider Emergency Medicine; PCP Internal Medicine; Visit Provider Internal Medicine Cardiovascular Disease | DX: E87.6 Hypokalemia (principal); I48.0 Paroxysmal atrial fibrillation | CPT/HCPCS: 93010; 99223 ==

== ENCOUNTER → 2024-11-08 17:31 | Outpatient (BNV) | payer MEDICARE, SELFPAY | PROVIDERS: Admitting Provider Physician Assistant Medical; Emergency Provider Emergency Medicine; PCP Internal Medicine; Visit Provider Internal Medicine | DX: A41.9 Sepsis, unspecified organism (principal); N39.0 Urinary tract infection, site not specified | CPT/HCPCS: 99222 ==

== ENCOUNTER 2024-11-23 12:03 | Outpatient (REF) | payer MEDICARE, SELFPAY ==
--- OUTSIDE RECORDS SUMMARY | 2024-11-23 15:05 | XMS_ITS | Encounter Summary ---
Author Organization [facility] Address [address] [place] [id number] Care Team Providers Care Chocolatier Name Role Phone Neptali Amador DO Primary Care Provider [phone] Encounter Details Date Type Department Care Team (Late st Contact Info) Description 06/01/2020 Scanned Document [facility] Neurosurgery [address] [id number] Max Christie MD [address] [place] [id number] Social History Tobacco Use Types Packs/Day Years Used Date Smoking Tobacco: Never Assessed Comments Unknown Sex and Gender Information Value Date Recorded Sex Assigned at Not on file Legal Sex Female 11:56 AM EST Gender Identity Female 06/01/2020 1:41 PM EDT Sexual Orientation Heterosexual (straight) 06/01 1:41 PM EDT COVID-19 Exposure Response Date Recorded In the last month, have you been in contact with someone who was confirmed or suspected to have Coronavirus / COVID-19? No / Unsure 05/29/2020 2:53 PM EDT documented as of this encounter Plan of Treatment Not on file documented as of this encounter Visit Diagnoses Not on filedocumented in this encounter Care Teams Chocolatier Relationship Specialty Start Date End Date Neptali Amador DO [address] [facility] [place] [address] [place] [address] PCP - General 04/25/20 documented as of this encounter
--- OUTSIDE RECORDS SUMMARY | 2024-11-23 15:05 | XMS_ITS | Patient Health Record ---
Author Organization [facility] Address [address] [facility] [place] [address] Care Team Providers Care General Service Officer Name Role Phone Neptali Amador MD Primary Care Provider Raad Reyes Unavailable [phone] Allergies No Known Allergies Reason For Referral No Information Medications Medication SIG (Take, Route, Frequency, Duration) Notes Start Date End Date Status ALPRAZolam 0.5 MG 1 tablet Oral Once a day Active buPROPion HCl ER (XL) 300 MG 1 tablet in the morning Oral Once a day Active Chlorthalidone 25 MG 1 tablet in the mor darlene with food Oral Once a day Active Desvenlafaxine Succinate ER 50 MG 1 tablet Oral Once a day Act jacob Immunizations Vaccine Route Administration Date Status Comme nts Influenza Unknown 01/23/2021 Refused COVID-19 Pfizer BioNTech Vaccine Unknown 07/05/2020 Administered 1st 06/14/2020 2nd 07/05/2020 Social History Tobacco Use: Social History Observation Description Date Details (start date - stop date) Current Smoker NA - NA Tobacco Use/Smoking Question Answer Notes Are you a: current smoker How often do you smoke cigarettes? every day How many cigarettes a day do you smoke? 5 or les s Alcohol Screen Question Answer Notes Did you have a drink containing alcohol in the p ast year? Yes Points 0 Interpretation Negative Tobacco use other than smoking: Question Answer Notes Are you an other tobacco user? No Problems Problem Type SNOMED Code ICD Code Onset Dates Problem Status W/U Status Risk Notes Problem Ingrowing nail (623740003) Ingrowing nail (L60.0) Active confirmed Plan Of Treatment No Information Insurance Providers Payer Name Payer Address Payer Phone Subscriber Number Group Number Insured Name Patient Relationship to Insured Coverage Start Date Coverage End Date Medicare National Govt Sv[employer] Inc [address] [place] [address] [id number] Esme Alfonso Self - patient is the insured Medical (General) History Medical History History ICD Code Anxiety Broken bones Colitis Crohns disease Depression Diverticulosis Headaches/Migraines Measles Chicken pox Scarlet fever high blood pressure Surgical History Surgery Date(Month/Year)
--- OUTSIDE RECORDS SUMMARY | 2024-11-23 15:05 | XMS_ITS | Clinical Summary ---
Author Organization [facility] Address [address] [place], [place] [id number] Phone Care Team Providers Care Azure Developer Name Role Phone Giovany Paniagua Primary Care Provider [phone] Allergies No known active allergies Medications multivitamin-m inerals-lutein (CENTRUM SILVER) Tab Take 1 tablet by mouth daily. Active ALPRAZolam (XANAX) 0.5 MG tablet Take 0.5 mg by mouth nightly at bedtime as needed for sleep. Active buPROPion (WELLBUTRIN XL) 300 MG ER 24 hr tablet bupropion HCl XL 300 mg 24 hr tablet, extended release Active chlorthalidone (HYGROTON) 25 MG tablet chlorthalidone 25 mg tablet Take 1 tablet by mouth once daily Active desvenlafaxine succinate (PRISTIQ) 50 MG 24 hr tablet desvenlafaxine succinate ER 50 mg tablet,extended release 24 hr Active Social History Tobacco Use Types Packs/Day Years Used Date Smoking Tobacco: Former Cigarettes Q uit: 04/18/2019 Smokeless Tobacco: Never Alcohol Use Standard Drinks/Week Comments Not Currently 0 (1 standard drink = 0.6 oz pur e alcohol) Education Answer Date Recorded Are you interested in more education? Not on gavin e 06/14/2022 Are you concerned about learning? Not on file 06/14/2022 No 06/14/2022 No 06/14/2022 Digital Access Answer Date Recorded No 07/13/2022 No 07/13/2022 No 07/13/2022 Reliable internet access at home? Not on file 07/13/2022 Device with a working camera? Not on file Comments No Sex and Gender Information Value Date Recorded Sex Assigned at Not on file Legal Sex Female 9:57 PM EDT Gender Identity Not on file Sexual Orientation Not on file Last Filed Vital Signs Vital Sign Reading Time Taken Comments Blood Pressure 127/79 08/26/2019 12:25 PM EDT Pulse 76 08/26/2019 11:07 AM EDT Temperature 36 C (96.8 F) 08/26/2019 12:09 PM EDT Respiratory Rate 16 08/26/2019 12:25 PM EDT Oxygen Saturation 95% 08/26/2019 12:25 PM EDT Inhaled Oxygen Concentration - - Weight 74.8 kg (165 lb) 08/24/2019 1:23 PM EDT Height 180.3 cm (5' 11 ) 08/24/2019 1:23 PM EDT Body Mass Index 23.01 08/24/2019 1:23 PM EDT Plan of Treatment Health Maintenance Due Date Last Done Comments Adult Td,Tdap Booster 1955 POTASSIUM LEVEL 1955 DEPRESSION SCREENING 1965 SMOKING Hx and SMOKELESS TOBACCO SCREENING 1966 HEPATITIS C SCREENING 11/17/1971 MAMMOGRAM 1993 COLOGUARD 1998 FIT TEST 1998 FOBT 1998 SIGMOIDOSCOPY 1998 VIRTUAL COLONOSCOPY 1998 PNEUMOCOCCAL VACCINES (50+ years) (1 of 1 - PCV) 11/17/2003 ZOSTER VACCINES (2 of 3) 03/04/2015 01/07/2015 OSTEOPOROSIS SCREENING INITI AL (ONE-TIME) 2018 LIPID PANEL 01/12/2023 01/12/2018 INFLUENZA VACCINE (#1) 2024 COVID-19 VACCINE (3 - 2024-2 6 season) 2024 07/05/2020, 06/14/2020 RSV VACCINE (1 - 1-dose 75+ series) 2028 COLONOSCOPY 08/25/2029 08/26/2019 COLORECTAL CANCER SCREENING 08/25/2029 HEPATITIS A VACCINES Aged Out No long er eligible based on patient's age to complete this topic HIB VACCINES Aged Out No longer eligi ble based on patient's age to complete this topic MENINGOCOCCAL VACCINES (ACWY) Aged Out No longer eligible based on patient's age to complete this topic MENINGOCOCCAL VACCINES (B) Aged Out N o longer eligible based on patient's age to complete this topic Medical Devices Not on file Procedures Procedure Name Priority Date/Time Associated Diagnosis Comments ENDOSCOPY, COLON 08/26/2019 11:4 4 AM EDT from Last 3 Months or Most Recently Relevant to Health Maintenance Results * ENDOSCOPY, COLON (08/26/2019 11:44 AM EDT) Narrative Transcriptions Darinel Botello MD - 08/26/2019 11:44 AM EDT Patient Name: Esme Alfonso Attending MD:: DARINEL BOTELLO MD, Procedure Date: 08/26/2019 11:44 AM Date of : 1955 Age: 63 Admit Type: Outpatient Gender: Female Room: [place] [address] Referring MD: GIOVANY PANIAGUA DO Exam Type: Colonoscopy Indications: Screening for colorectal malignant neoplasm Medications: Propofol per Anesthesia Procedure: Informed consent was obtained from the patient after discussion of the indications, limitations, alternatives, benefits, and risks of the procedure. Risks specifically discussed include but are not limited to medication reactions, missed lesions, bleeding, perforation, or the need for emergentsurgery. Throughout the procedure, the patient's bloodpressure, pulse, end-tidal CO2, and oxygen saturations were monitored continuously. The Olympus pediatric variable colonoscopePCF-[id number] #1 was introduced through the anus and advanced tothe cecum, identified by appendiceal orifice andileocecal valve. The colonoscopy was performed without difficulty. The patient tolerated the procedurewell. The quality of the bowel preparation was excellent.The quality of the bowel preparation was evaluated using the BBPS (Tarpley Bowel Preparation Scale) withscores of: Right Colon = 3, Transverse Colon = 3 and Left Colon = 3 (entire mucosa seen well with no residual staining, small fragments of stool or opaqueliquid). The total BBPS score equals 9. Complications: No immediate complications. Estimated blood loss: Minimal. Findings: The perianal and digital rectal examinations were normal. Two sessile polyps were found in the sigmoid colon.The polyps were 3 to 5 mm in size. These polyps were removed with a cold snare. Resection and retrievalwere complete. Internal hemorrhoids were found during retroflexion. The hemorrhoids were moderate. The exam was otherwise normal throughout theexamined colon. Impression: - Two 3 to 5 mm polyps in the sigmoid colon, removed with a cold snare. Resected and retrieved. - Internal hemorrhoids. Recommendation: - Discharge patient to home. - Await pathology results. DARINEL BOTELLO MD, 08/26/2019 12:08:31 PM This report has been signed electronically. Number of Addenda: 0 Note Initiated On: 08/26/2019 11:44 AM Procedure Code(s): --- Professional --- 93111, Colonoscopy, flexible; with removal of tumor(s), polyp(s), or other lesion(s) by snare technique --- Technical --- 91121, Colonoscopy, flexible; with removal of tumor(s), polyp(s), or other lesion(s) by snare technique Diagnosis Code(s): --- Professional --- Z12.11, Encounter for screening for malignantneoplasm of colon D12.5, Benign neoplasm of sigmoid colon K64.8, Other hemorrhoids --- Technical --- Z12.11, Encounter for screening for malignantneoplasm of colon D12.5, Benign neoplasm of sigmoid colon K64.8, Other hemorrhoids CPT copyright 2018 [employer]. All rights reserved. The codes documented in this report are preliminary and upon furnace clerk reviewmay be revised to meet current compliance requirements. Procedure Date: 08/26/2019 11:44:43 AM [address] [place] [address] us Giovany Paniagua DO GI PROCEDURE ORDERABLES Final Re sult from Last 3 Months or Most Recently Relevant to Health Maintenance Insurance MEDICARE PART A & B [facility] MEDICARE PART A & B [place] & [place] & B [place]ALTH MEDICARE PART A & [place] Care Teams Azure Developer Relationship Specialty Start Date End Date Giovany Paniagua DO [email or web address] PCP - General 12/03/16 Additional Source Comments The information contained in this document represents components of the legal health record. It is not the complete legal health record.[facility]
--- OUTSIDE RECORDS SUMMARY | 2024-11-23 15:05 | XMS_ITS | Clinical Summary ---
Author Organization [facility] Address [address] [place] [address] Care Team Providers Care Solvent Station Attendant Name Role Phone Neptali Amador DO Primary Care Provider [phone] Allergies No known active allergies Medications ALPRAZolam (XANAX) 0.5 MG tablet alprazolam 0.5 mg tablet TAKE 1 TABLET BY MOUTH EVERY MORNING 1 Active buPROPion (WELLBUTRIN XL) 300 MG 24 hr tablet bupropion HCl XL 300 mg 24 hr tablet, extended release TAKE 1 TABLET BY MOUTH EVERY MORNING Active chlorthalidone (HYGROTON) 25 MG tablet chlorthalidone 25 mg tablet TAKE 1 TABLET BY MOUTH EVERY DAY 1 Active desvenlafaxine (PRISTIQ) 50 MG 24 hr tablet desvenlafaxine succinate ER 50 mg tablet,extended release 24 hr TAKE 1 TABLET BY MOUTH EVERY MORNING Active Multiple Vitamins-[place] als (Vitrum Senior) Tab Take 1 tablet by mouth. Active Family History Relation Name Status Comments Father Mother Alive Social History Tobacco Use Types Packs/Day Years Used Date Smoking Tobacco: Every Day Cigarettes 0.5 50 Smokeless Tobacco: Never Alcohol Use Standard Drinks/Week Comments Yes 1 (1 standard drink = 0.6 oz pur e alcohol) AUDIT-C Answer Date Recorded Q1: How often do you have a drink containing alc ohol? Not asked 06/23/2020 Q2: How many drinks containi ng alcohol do you have on a typical day when you are drinking? 1 or 2 06/23/2020 Q3: How often do you have six or more drinks on one occasion? Weekly 06/23/2020 Comments Unknown Sex and Gender Information Value Date Recorded Sex Assigned at Not on file Legal Sex Female 11:56 AM EST Gender Identity Female 06/01/2020 1:41 PM EDT Sexual Orientation Heterosexual (straight) 06/01 1:41 PM EDT Last Filed Vital Signs Vital Sign Reading Time Taken Comments Blood Pressure 134/90 06/23/2020 3:01 PM EDT Pulse 85 06/23/2020 3:01 PM EDT Temperature - - Respiratory Rate - - Oxygen Saturation - - Inhaled Oxygen Concentration - - Weight 74 kg (163 lb 3.2 oz) 06/23/2020 3:01 PM EDT Height 180.3 cm (5' 11 ) 06/23/2020 3:0 1 PM EDT verbal given Body Mass Index 22.76 06/23/2020 3:01 PM EDT Plan of Treatment Health Maintenance Due Date Last Done Comments Advance Care Planning 1955 Hepatitis C Virus Screening 1955 DTaP/Tdap/Td Vaccines (1 - Tdap) 1972 Mammogram 1993 Colonoscopy 1998 Lung Cancer Screening (LDCT) 11/17/2003 Pneumococcal Vaccines 50+ (1 of 1 - PCV) 11/17/2003 Zoster (Shingles) Vaccine (1 of 2) 11/17/2003 DXA Bone Density (Females,Ag es 65 and older) 2018 Influenza Vaccine 09/17/2024 COVID-19 Vaccine ( - 2023-2 5 season) 2024 RSV Vaccine 60 years and old er and Patients (1 - 1-dose 75+ series) 2028 Hepatitis B Vaccines Aged Out No long er eligible based on patient's age to complete this topic Insurance MEDICARE PART A & B Member Subscriber Plan / Payer (Ef fective 2018-Present) Name:Esme Alfonso Member ID:[id number] Relation to Subscriber:Self Name:Esme Alfonso Subscriber ID:[id number] Payer ID:[id number] Group ID:Not on file Type:Not on file Address: [facility] [address] [phone] MEDICAID OUT OF STATE [facility] [address] [place] [address] Care Teams Solvent Station Attendant Relationship Specialty Start Date End Date Neptali Amador DO [address] [facility] [place] [address] [place] [address] PCP - General 04/25/20
--- OUTSIDE RECORDS SUMMARY | 2024-11-23 15:05 | XMS_ITS | Clinical Summary ---
Author Organization [facility] Address [address] [facility] [address] [place] [address] Phone Care Team Providers Care Senior Pharmacy Technician Name Role Phone Neptali Amador DO Primary Care Provider [phone] Allergies No known active allergies Medications ALPRAZolam (XANAX) 0.5 MG tablet Take 1 tablet by mouth 1 (one) time each day in the morning 06/01/2020 Active buPROPion XL (WELLBUTRIN XL) 300 MG 24 hr tablet Take 1 tablet by mouth 1 (one) time each day in the morning Active chlorthalidone 25 MG tablet Take 1 tablet by mouth 1 (one) time each day 06/01/2020 Active desvenlafaxine (PRISTIQ) 50 MG 24 hr tablet Take 1 tablet by mouth 1 (one) time each day in the morning Active Multiple Vitamins-[place] (Vitrum Senior) tablet Take 1 tablet by mouth 1 (one) time each day Active Active Problems Problem Noted Date Diagnosed Date Alcohol intake above recommended sensible limits 11/07/2021 Hypertensive disorder 11/07/2021 Cyst of kidney 11/06/2020 Chronic kidney disease, stage 2 (mild) Tobacco use disorder 11/28/2017 Resolved Problems Problem Noted Date Diagnosed Date Resolved Date Anxiety 11/06/2020 11/06/2020 Tobacco use disorder 11/06/2020 021 Depressive disorder 11/06/2020 11/07/19 Lower gastrointestinal hemorrhage 11/06/2020 11/06/2020 Abdominal pain 11/06/2020 11/06/2020 Immunizations Immunization Administration Dates Next Due Td, Unspecified 09/05/2009 Social History Tobacco Use Types Packs/Day Years Used Date Smoking Tobacco: Every Day Cigarettes Smokeless Tobacco: Never Tobacco Cessation:Ready to Q uit: No; Counseling Given: No Alcohol Use Standard Drinks/Week Comments Yes 0 (1 standard drink = 0.6 oz pur e alcohol) few times a week Comments Unknown Sex and Gender Information Value Date Recorded Sex Assigned at Not on file Legal Sex Female 9:51 AM EDT Gender Identity Not on file Sexual Orientation Not on file Last Filed Vital Signs Vital Sign Reading Time Taken Comments Blood Pressure 116/80 11/06/2022 10:28 AM EDT Pulse 98 11/06/2022 10:28 AM EDT Temperature - - Respiratory Rate - - Oxygen Saturation 94% 11/06/2022 10: 28 AM EDT Inhaled Oxygen Concentration - - Weight 75.7 kg (166 lb 12.8 oz) 023 10:28 AM EDT Height 180.3 cm (5' 11 ) 11/06/2022 10: 28 AM EDT Body Mass Index 23.26 11/06/2022 10:28 AM EDT Plan of Treatment Health Maintenance Due Date Last Done Comments Breast Cancer Screening 1955 Pneumococcal Vaccine: 50+ Ye ars (1 of 2 - PCV) 1972 Colorectal Cancer Screening: Annual FOBT 2002 Colorectal Cancer Screening: Colonoscopy 2002 Colorectal Cancer Screening: Sigmoidoscopy 2002 Influenza Vaccine (#1) 2024 Hepatitis B Vaccine Aged Out No longe r eligible based on patient's age to complete this topic Insurance Medicare Medicaid [place] Medicare Medicaid [place] Care Teams Senior Pharmacy Technician Relationship Specialty Start Date End Date Neptali Amador DO [address] [facility] [place] [id number] PCP - General Internal Medicine 11/07/20
--- OUTSIDE RECORDS SUMMARY | 2024-11-23 15:05 | XMS_ITS | Encounter Summary ---
Author Organization [facility] Address [address] [place] [address] Phone Care Team Providers Care Telemarketing Manager Name Role Phone Neptali Amador DO Primary Care Provider [phone] Neptali Amador DO Unavailable Reason for Referral * Physical Therapy (Routine) - Closed Specialty Diagnoses / Procedures Referred By Hailey lopez Referred To Contact Physical Therapy Diagnoses Encounter for rehabilitation Leticia Carson CNP Phone: tel: fax: [email or web address] [facility] [address] [place] [address] Phone: tel: Referral ID Status Reason Start Date Expiration Date Visits Re quested Visits Authorized [id number] Closed 04/16/2018 02/16/2019 16 16 Encounter Details Date Type Department Care Team (Late st Contact Info) Description 03/16/2018 Transcribe Orders [facility] [address] [place] [address] Neptali Amador DO [address] [facility] [place] [address] Encounter for rehabilitation (Primary Dx) Social History Tobacco Use Types Packs/Day Years Used Date Smoking Tobacco: Never Assessed Comments Unknown Sex and Gender Information Value Date Recorded Sex Assigned at Not on file Legal Sex Female 9:57 PM EDT Gender Identity Not on file Sexual Orientation Not on file documented as of this encounter Plan of Treatment Scheduled Referrals Name Type Priority Associated Diagnoses Orde r Schedule Ambulatory referral to [facility] Physical Therapy Outpatient Referral Routine Encounter for rehabilitation Ordered: 03/16/2018 documented as of this encounter Visit Diagnoses Diagnosis Encounter for rehabilitation- Primary documented in this encounter Care Teams Telemarketing Manager Relationship Specialty Start Date End Date Neptali Amador DO PCP - General 12/03/16 Neptali Amador DO [address] [place] [address] Insurance Assigned Provider 04/18/1801/23 documented as of this encounter Additional Source Comments The information contained in this document represents components of the legal health record. It is not the complete legal health record.[facility]
--- OUTSIDE RECORDS SUMMARY | 2024-11-23 15:05 | XMS_ITS | Encounter Summary ---
Author Organization [facility] Address [address] [facility] [address] [place] [address] Phone Care Team Providers Care Resource Protection Specialist Name Role Phone Neptali Amador DO Primary Care Provider Encounter Details Date Type Department Care Team (Late st Contact Info) Description 08/26/2019 Procedure Pass [facility] Endoscopy Admitting Dept Virtual Department [address] [place] [address] Social History Tobacco Use Types Packs/Day Years Used Date Smoking Tobacco: Former Cigarettes Q uit: 04/18/2019 Smokeless Tobacco: Never Alcohol Use Standard Drinks/Week Comments Not Currently 0 (1 standard drink = 0.6 oz pur e alcohol) Comments No Sex and Gender Information Value Date Recorded Sex Assigned at Not on file Legal Sex Female 9:57 PM EDT Gender Identity Not on file Sexual Orientation Not on file documented as of this encounter Plan of Treatment Not on file documented as of this encounter Visit Diagnoses Not on filedocumented in this encounter Care Teams Resource Protection Specialist Relationship Specialty Start Date End Date Neptali Amador DO PCP - General 12/03/16 documented as of this encounter Additional Source Comments The information contained in this document represents components of the legal health record. It is not the complete legal health record.[facility]
--- OUTSIDE RECORDS SUMMARY | 2024-11-23 15:05 | XMS_ITS | Encounter Summary ---
Author Organization [facility] Address [address] [place] [address] Care Team Providers Care Mmd Unit Teacher Name Role Phone Neptali Amador DO Primary Care Provider [phone] Encounter Details Date Type Department Care Team (Late st Contact Info) Description 06/01/2020 Scanned Document [facility] Neurosurgery [address] [address] Max hCristie MD [address] [place] [address] Social History Tobacco Use Types Packs/Day Years [...] on filedocumented in this encounter Care Teams Mmd Unit Teacher Relationship Specialty Start Date End Date Neptali Amador DO 6 [facility] [place] [address] [place] [address] PCP - General 04/25/20 documented as of this encounter
[2024-11-23 17:52] LABS: MANUAL DIFF FLAG NO
[2024-11-23 18:29] LABS: Hematocrit 36.7 % (37.0-47.0); Hemoglobin 12.9 g/dl (12.0-16.0); Imm Gran Abs Auto 0.01 X10*3/uL (0.00-0.03); Imm Gran Pct Auto 0.2 % (0.0-0.4); Lymphocytes Absolute Auto 1.8 X10*3/uL (1.2-4.9); Mean Corpuscular HGB Conc 35.1 g/dl (31.0-35.0); Mean Corpuscular Hemoglobin 31.4 pg (27.0-33.0); Mean Corpuscular Volume 89.3 fL (80.0-98.0); NRBC Abs Auto 0.000 X10*3/uL (0.0-0.012); NRBC Pct Auto 0.0 /100WBC (0.0-0.2); Platelet Count 591 X10*3/uL (160-400); Red Blood Count 4.11 X10*6/uL (4.20-5.50); White Blood Count 5.9 X10*3/uL (4.8-10.8)
[2024-11-23 18:35] LABS: Alanine Aminotransferase 20 U/L (0-31); Albumin Level 3.8 g/dL (3.5-5.0); Alkaline Phosphatase 75 U/L (39-117); Anion Gap 14 (12-20); Aspartate Amino Transferase 21 U/L (5-31); Blood Urea Nitrogen 16 mg/dL (9-16); Calcium 8.8 mg/dL (8.4-10.2); Carbon Dioxide 22 mmol/L (22-29); Chloride 110 mmol/L (96-108); Estimated Glomerular Filt Rate > 60; Magnesium 2.0 mg/dL (1.6-2.6); Potassium 3.7 mmol/L (3.3-5.1); Sodium 142 mmol/L (135-145); Total Protein 6.9 g/dL (6.5-8.0)
== END 2024-11-23 12:04 | disposition home or self-care (01) ==
LOC: HO.MANLDS 12:03
PROVIDERS: Visit Provider Physician Assistant
DX: A41.9 Sepsis, unspecified organism (principal); E87.6 Hypokalemia
CPT/HCPCS: 36415; 80053; 83735; 85025

== ENCOUNTER 2024-12-10 12:55 | Outpatient (AMB) | payer MEDICARE, SELFPAY ==
--- NOTE | 2024-12-10 13:06 | MHC.OFFVIS ---
Vital Signs 12/10/24 13:07 Height 5 ft 11 in Weight 158 lb 4.67 oz BMI 22.1 BP 116/72 Blood Pressure Location Lt brachial Position Sitting Pulse 78 Pulse Source Pulse Oximeter Intake Visit Reasons: [facility] Ed Discharged F/u Property Supervisor Required: No Accompanied by: Self / Same As Patient Allergies No Known Allergies (No Known Allergies*) Allergy (Verified 12/10/24 13:09) Medication List - Last Reconciled 12/10/24 by Champ Martínez NP alprazolam 0.5 mg PO DAILY apixaban (Eliquis) 5 mg PO BID bupropion HCl XL 300 mg PO DAILY desvenlafaxine succinate ER 50 mg PO DAILY metoprolol tartrate 12.5 mg (1/2 x 25 mg) PO BID HPI Comments Details: This is a 69-year-old female patient coming in for a hospital discharge follow-up. Patient with a history of hypertension previously on chlorthalidone who was in the hospital for reports of feeling weak and nauseous where patient was noted to be hypokalemic with a potassium of 2.3. Patient was treated for UTI with sepsis and was noted to be in new onset AFib. Patient's potassium was repleted and was started on Eliquis and metoprolol. Today, patient is reporting completing all her antibiotics and feeling well overall without any cardiac symptoms of exertional chest pain, shortness of breath, palpitations, dizziness, orthopnea, PND, leg edema, presyncope or syncope. Patient is reporting compliance with all her medications and is denying any intolerance. Patient at today's visit was asking about alcohol intake and smoking joints. [facility] Medical History (Updated 12/10/24 @ 14:49 by Champ Martínez NP) PAF (paroxysmal atrial fibrillation) New onset a-fib Brain aneurysm Hypertension Depression Anxiety Kidney cysts Nicotine dependence, cigarettes, uncomplicated UTI (urinary tract infection) Surgical History History of tonsillectomy Social History Household Members: Family Housing: House Do you presently have visiting nurse or other home services: No Alcohol intake: current Alcohol intake frequency: 0-2 drinks per day Comment: steady gait noted. Patient Tobacco Use Status: Current someday Tobacco user Tobacco use type: Cigarette Years Smoked: (onset 8yo, 1/2ppd x 59yrs, now <1/4ppd, 25+PYH) Advance Directives Date on File: 11/09/24 service: No Review of Systems Const Denies daytime sleepiness, Denies difficulty sleeping, Denies snoring, Denies stops breathing during sleep and Denies weakness Card Denies chest pain, Denies rapid heart rate, Denies irregular heart rhythm, Denies claudication, Denies leg edema, Denies lightheadedness, Denies palpitations, Denies dyspnea, Denies dyspnea on exertion, Denies orthopnea, Denies paroxysmal nocturnal dyspnea and Denies slow heart rate Resp Denies cough, Denies dyspnea, Denies dyspnea on exertion and Denies snoring GI Reports no additional complaints, Denies hematochezia, Denies change in stool character and Denies dyspepsia Musc Denies abnormal gait, Denies muscle weakness and Denies numbness Neuro Denies abnormal gait, Denies numbness and Denies weakness Endo Denies palpitations Physical Exam Vital Signs: Last Vital Signs Pulse 78 12/10/24 13:07 BP 116/72 12/10/24 13:07 BMI result Body Mass Index 22.1 Const General: cooperative, healthy appearing, comfortable and no acute distress Orientation/consciousness: patient oriented x3 HEENT Head: Yes normal to inspection Neck Neck: Yes normal visual inspection, Yes trachea midline and Yes supple Chest Chest palpation & inspection: normal inspection of the chest Resp Effort & Inspection: normal respiratory effort Auscultation: clear to auscultation bilaterally, no crackles, no rales, no rhonchi and no wheezes Cardio Jugular venous distension: no JVD Palpation: normal PMI Rate: regular rate Rhythm: regular rhythm Heart sounds: S1 normal heart sound present, S2 normal heart sound present, no click, no gallops, no murmurs and no rubs Peripheral pulses: Peripheral pulses 2+ throughout GI Inspection: Yes normal to inspection Palpation (GI): Soft to palpation Auscultation: normal bowel sounds Skin General skin exam: no rashes or lesions noted Neuro General: patient oriented x3 Extrem General: Yes normal to inspection, No no pedal edema and No calf tenderness Psych Appearance: grossly normal Mental Status: mental status grossly normal Speech and movement: Normal speech and movement present Office Procedures EKG Details: EKG today showed sinus rhythm with incomplete right bundle branch block, rate 78 beats per minute, nonspecific ST wave, [place] DC, [place]. [address]-[id number], Complete Assessment & Plan Assessment & Plan (1) PAF (paroxysmal atrial fibrillation): Code(s): I48.0 - Paroxysmal atrial fibrillation Category: Medical Plan: EKG today is normal. Patient was noted to be in AFib with RVR at the recent hospital visit for hypokalemia due to chlorthalidone use and UTI with sepsis. Continue Eliquis for full anticoagulation therapy. Rome Vasc score of 3. Denies any bleeding or falls. Continue metoprolol for rate control approach. We will get a Holter to look at AFib recurrence or rate control. Strongly advised to completely refrain from alcohol intake and smoking which patient is not too pleased about and states she will try. We will monitor labs periodically and check for electrolyte imbalance. (2) Hypertension: Code(s): I10 - Essential (primary) hypertension Category: Medical Plan: Blood pressure today is well-controlled. Continue current regimen. Advised monitoring blood pressures at home with a goal less than 130/80. Advised on low-salt diet. (3) Hospital discharge follow-up: Code(s): Z09 - Encounter for follow-up examination after completed treatment for conditions other than malignant neoplasm Plan: As above. Advised on heart healthy diet, regular exercise, avoiding stimulants, med compliance, and management of vascular risk factors. Follow up in 1 year, sooner if needed. In the interim, patient will call the office with any concerns or change in symptoms. This note was generated using voice recognition software. While every effort has been made to ensure accuracy and proper checkroom attendant, there may be occasional errors that could affect the content or meaning of the described symptoms. Orders: Orders Complete Blood Count Auto Diff Today Champ Martínez NP I48.0 - Paroxysmal atrial fibrillation ECG 3 day holter monitor Today Champ Martínez NP I48.0 - Paroxysmal atrial fibrillation Basic Metabolic Panel Today Champ Martínez NP I48.0 - Paroxysmal atrial fibrillation AMB EKG-In Office Today Champ Martínez NP I48.0 - Paroxysmal atrial fibrillation Medications: Discontinued cefuroxime axetil Take one tablet twice a day with food for the next two days, starting the evening of 11/14 and ending the evening of 11/16 Discontinued Reason: Patient no longer taking 500 mg PO BID 5 tabs 0RF nitrofurantoin macrocrystal must administer with a meal/food. Take one capsule twice a day for the next 10 days, starting the evening of 11/14 and ending the evening of 11/24 Discontinued Reason: Patient no longer taking 100 mg PO BID 20 caps 0RF Duy Segal CNA azithromycin Take one tablet daily for the next 3 days, ending on 11/16 Discontinued Reason: Patient no longer taking 500 mg PO DAILY 3 tabs 0RF Coding Level of Care Code Est Pt Level 4 (23397) Complex EM visit Add On G2211 Diagnoses PAF (paroxysmal atrial fibrillation) I48.0 Hypertension I10 Hospital discharge follow-up Z09 CPT Codes EKG - CPT: 21372-[id number], Complete ([id number]) Time Spent (min) 31 Comment Time spent in reviewing the chart, test results, assessment, counseling and documentation.
[2024-12-10 13:07] VITALS: BP 116/72; PULSE 78; BMI 22.1
--- OUTSIDE RECORDS SUMMARY | 2024-12-10 14:53 | XMS_ITS | Encounter Summary ---
Author Organization [facility] Address [address] [place] [address] Care Team Providers Care Jewel Bearing Driller Name Role Phone Neptali Amador DO Primary Care Provider [phone] Encounter Details Date Type Department Care Team (Late st Contact Info) Description 06/01/2020 Scanned Document [facility] Neurosurgery [address] [address] Max Christie MD [address] [place] [address] Social History Tobacco Use Types Packs/Day Years [...] on filedocumented in this encounter Care Teams Jewel Bearing Driller Relationship Specialty Start Date End Date Neptali Amador DO [address] [facility] [place] [address] [place] [address] PCP - General 04/25/20 documented as of this encounter
--- OUTSIDE RECORDS SUMMARY | 2024-12-10 14:53 | XMS_ITS | Encounter Summary ---
Author Organization [facility] Address [address] [facility] [address] [place] [address] Phone Care Team Providers Care Welding Machine Operator Resistance Name Role Phone Neptali Amador DO Primary Care Provider [phone] Encounter Details Date Type Department Care Team (Late st Contact Info) Description 08/26/2019 Procedure Pass [facility] Endoscopy Admitting Dept Virtual Department [address] [place] [address] Social History Tobacco Use Types Packs/Day Years [...] on filedocumented in this encounter Care Teams Welding Machine Operator Resistance Relationship Specialty Start Date End Date Neptali Amador DO PCP - General 12/03/16 documented as of this encounter Additional Source Comments The information contained in this document represents components of the legal health record. It is not the complete legal health record.[facility]
--- OUTSIDE RECORDS SUMMARY | 2024-12-10 14:53 | XMS_ITS | Clinical Summary ---
Author Organization [facility] Address [address] [place], [place] [address] Phone Care Team Providers Care Sole Tacker Name Role Phone Giovany Paniagua Primary Care Provider [phone] Allergies No known active allergies Medications multivitamin-m [...] 63 Admit Type: Outpatient Gender: Female Room: [place] [address] Referring MD: GIOVANY PANIAGUA DO Exam Type: [...] bowel preparation was evaluated using the BBPS ([place] Bowel Preparation Scale) withscores of: Right Colon [...] 11:44 AM Procedure Code(s): --- Professional --- 92659, Colonoscopy, flexible; with removal of tumor(s), polyp(s), or other lesion(s) by snare technique --- Technical --- 96628, Colonoscopy, flexible; with removal of tumor(s), polyp(s), or other lesion(s) by snare technique Diagnosis Code(s): --- Professional --- Z12.11, Encounter for screening for malignantneoplasm of colon D12.5, Benign neoplasm of sigmoid colon K64.8, Other hemorrhoids --- Technical --- Z12.11, Encounter for screening for malignantneoplasm of colon D12.5, Benign neoplasm of sigmoid colon K64.8, Other hemorrhoids CPT copyright 2018 [employer]. All rights reserved. The codes documented in this report are preliminary and upon hims coder reviewmay be revised to meet current compliance requirements. Procedure Date: 08/26/2019 11:44:43 AM [address] [place] [address] us Giovany Paniagua DO GI PROCEDURE ORDERABLES Final Re sult from Last 3 Months or Most Recently Relevant to Health Maintenance Insurance MEDICARE PART A & B [facility] MEDICARE PART A & B [place] & [place] & B [place]ALTH MEDICARE PART [place] & [place] Care Teams Sole Tacker Relationship Specialty Start Date End Date Giovany Paniagua DO [email or web address] PCP - General 12/03/16 Additional Source Comments The information contained in this document represents components of the legal health record. It is not the complete legal health record.[facility]
--- OUTSIDE RECORDS SUMMARY | 2024-12-10 14:53 | XMS_ITS | Encounter Summary ---
Author Organization [facility] Address [address] [place] [address] Care Team Providers Care Trust Administrative Assistant Name Role Phone Neptali Amador DO Primary Care Provider [phone] Encounter Details Date Type Department Care Team (Late st Contact Info) Description 06/01/2020 Scanned Document [facility] Neurosurgery [address] [address] Max Christie MD [address] [place] [address] Social History Tobacco Use Types Packs/Day Years [...] on filedocumented in this encounter Care Teams Trust Administrative Assistant Relationship Specialty Start Date End Date Neptali Amador DO [address] [facility] [place] [address] [place] [address] PCP - General 04/25/20 documented as of this encounter
--- OUTSIDE RECORDS SUMMARY | 2024-12-10 14:53 | XMS_ITS | Clinical Summary ---
Author Organization [facility]ly [facility] Address [address] [place] [address] Care Team Providers Care Overweaver Name Role Phone Neptali Amador DO Primary Care Provider [phone] Allergies No known active allergies Medications ALPRAZolam [...] TABLET BY MOUTH EVERY MORNING Active Multiple Vitamins-Cashier Supervisor als (Vitrum Senior) Tab Take 1 tablet [...] - 2023-2 5 season) 2024 RSV Vaccine 50 years and old er and Patients (1 - 1-dose 75+ series) 2028 Hepatitis B Vaccines Aged Out No long er eligible based on patient's age to complete this topic Insurance MEDICARE PART A & B Member Subscriber Plan / Payer (Ef fective 2018-Present) Name:Esme Alfonso Member ID:[id number] Relation to Subscriber:Self Name:Esme Alfonso Subscriber ID:[id number] Payer ID:[id number] Group ID:Not on file Type:Not on file Address: [facility] [address] [phone] MEDICAID OUT OF STATE [facility] [address] [place] [address] Care Teams Overweaver Relationship Specialty Start Date End Date Neptali Amador DO [address] [facility] [place] [address] [place] [address] PCP - General 04/25/20
--- OUTSIDE RECORDS SUMMARY | 2024-12-10 14:54 | XMS_ITS | Encounter Summary ---
Author Organization [facility] Address [address] [place] [phone] Phone Care Team Providers Care General Warehouse Worker Name Role Phone Neptali Amador DO Primary Care Provider [phone] Neptali Amador DO Unavailable Reason for Referral * Physical Therapy (Routine) - Closed Specialty Diagnoses / Procedures Referred By Hailey lopez Referred To Contact Physical Therapy Diagnoses Encounter for rehabilitation Leticia Carson CNP Phone: tel: fax: [email or web address] [facility] [address] [place] [address] Phone: tel: Referral ID Status Reason Start Date Expiration Date Visits Re quested Visits Authorized [id number] Closed 04/16/2018 02/16/2019 16 16 Encounter Details Date Type Department Care Team (Late st Contact Info) Description 03/16/2018 Transcribe Orders [facility] [address] [place] [id number] Neptali Amador DO [address] [facility] [place] [address] [email or web address] Encounter for rehabilitation (Primary Dx) Social History [...] Diagnoses Orde r Schedule Ambulatory referral to [facility] Physical Therapy Outpatient Referral Routine Encounter for rehabilitation Ordered: 03/16/2018 documented as of this encounter Visit Diagnoses Diagnosis Encounter for rehabilitation- Primary documented in this encounter Care Teams General Warehouse Worker Relationship Specialty Start Date End Date Neptali Amador DO [email or web address] PCP - General 12/03/16 Neptali Amador DO [address] [place] [address] [email or web address] Insurance Assigned Provider 04/18/1801/23 documented as of this encounter Additional Source Comments The information contained in this document represents components of the legal health record. It is not the complete legal health record.[facility]
--- OUTSIDE RECORDS SUMMARY | 2024-12-10 14:54 | XMS_ITS | Clinical Summary ---
Author Organization [facility] Address [address] [facility] [address] [place] [address] Phone Care Team Providers Care Frozen Food Department Manager Name Role Phone Neptali Amador DO Primary Care Provider Allergies No known active allergies Medications ALPRAZolam [...] Medicaid [place] Care Teams Frozen Food Department Manager Relationship Specialty Start Date End Date Neptali Amador DO [address] [facility] [place] [id number] PCP - General Internal Medicine 11/07/20
--- OUTSIDE RECORDS SUMMARY | 2024-12-10 14:54 | XMS_ITS | Patient Health Record ---
Author Organization [facility] Address [address] [facility] [place] [address] Care Team Providers Care Light Industrial Supervisor Name Role Phone Neptali Amador MD Primary Care Provider Raad Reyes Unavailable [phone] Allergies No Known Allergies Reason For Referral [...] W/U Status Risk Notes Problem Ingrowing nail ([id number]) Ingrowing nail (L60.0) Active confirmed Plan Of Treatment No Information Insurance Providers Payer Name Payer Address Payer Phone Subscriber Number Group Number Insured Name Patient Relationship to Insured Coverage Start Date Coverage End Date Medicare National [employer] [address] [place] [address] [id number] Esme Alfonso Self - patient is the insured Medical (General) History Medical History History ICD Code Anxiety Broken bones Colitis Crohns disease Depression Diverticulosis Headaches/Migraines Measles Chicken pox Scarlet fever high blood pressure Surgical History Surgery Date(Month/Year)
== END 2024-12-10 13:33 | disposition home or self-care (01) ==
LOC: HO.HCS 12:56
PROVIDERS: PCP Internal Medicine
DX: I48.0 Paroxysmal atrial fibrillation (principal); I10 Essential (primary) hypertension; Z09 Encounter for follow-up examination after completed treatment for conditions other than malignant neoplasm
CPT/HCPCS: 93010; 99214; G2211

== ENCOUNTER → 2024-12-10 12:55 | Outpatient (BNVA) | payer MEDICARE, SELFPAY | PROVIDERS: PCP Internal Medicine | DX: I48.0 Paroxysmal atrial fibrillation (principal); I10 Essential (primary) hypertension; Z72.0 Tobacco use; Z79.01 Long term (current) use of anticoagulants; Z09 Encounter for follow-up examination after completed treatment for conditions other than malignant neoplasm | CPT/HCPCS: 93005; 99212 ==

== ENCOUNTER → 2025-02-08 13:09 | Outpatient (REF) | payer MEDICARE, SELFPAY ==
--- OUTSIDE RECORDS SUMMARY | 2025-02-08 14:17 | XMS_ITS | Clinical Summary ---
Author Organization [facility] Address [address] [place], [place] [id number] Phone Care Team Providers Care Datastage Consultant Name Role Phone Giovany Paniagua Primary Care Provider [phone] Allergies No known active allergies Medications multivitamin-m [...] 63 Admit Type: Outpatient Gender: Female Room: [place] [address] Referring MD: GIOVANY PANIAGUA DO Exam Type: [...] bowel preparation was evaluated using the BBPS ([place] Bowel Preparation Scale) withscores of: Right Colon [...] 11:44 AM Procedure Code(s): --- Professional --- 40432, Colonoscopy, flexible; with removal of tumor(s), polyp(s), or other lesion(s) by snare technique --- Technical --- 30610, Colonoscopy, flexible; with removal of tumor(s), polyp(s), or other lesion(s) by snare technique Diagnosis Code(s): --- Professional --- Z12.11, Encounter for screening for malignantneoplasm of colon D12.5, Benign neoplasm of sigmoid colon K64.8, Other hemorrhoids --- Technical --- Z12.11, Encounter for screening for malignantneoplasm of colon D12.5, Benign neoplasm of sigmoid colon K64.8, Other hemorrhoids CPT copyright 2018 [employer]. All rights reserved. The codes documented in this report are preliminary and upon clay digger reviewmay be revised to meet current compliance requirements. Procedure Date: 08/26/2019 11:44:43 AM [address] [place] [address] us Giovany Paniagua DO GI PROCEDURE ORDERABLES Final Re sult from Last 3 Months or Most Recently Relevant to Health Maintenance Insurance MEDICARE PART A & B [facility] MEDICARE PART A & B [place] & [place] & [place] & [place] & [place] PART A & B HEALTH MEDICARE PART A & [place] Care Teams Datastage Consultant Relationship Specialty Start Date End Date Giovany Paniagua DO [email or web address] PCP - General 12/03/16 Additional Source Comments The information contained in this document represents components of the legal health record. It is not the complete legal health record.[facility]
--- OUTSIDE RECORDS SUMMARY | 2025-02-08 14:17 | XMS_ITS | Encounter Summary ---
Author Organization [facility] Address [address] [place] [address] Care Team Providers Care Ladle Filler Name Role Phone Neptali Amador DO Primary Care Provider [phone] Encounter Details Date Type Department Care Team (Late st Contact Info) Description 06/01/2020 Scanned Document [facility] Neurosurgery [address] [address] Max Christie MD [address] [place] [id number] Social History Tobacco Use Types Packs/Day Years [...] on filedocumented in this encounter Care Teams Ladle Filler Relationship Specialty Start Date End Date Neptali Amador DO [address] [facility] [place] [address] [place] [address] PCP - General 04/25/20 documented as of this encounter
--- OUTSIDE RECORDS SUMMARY | 2025-02-08 14:17 | XMS_ITS | Data Portability ---
Author Organization [facility], Telehealth Patient Home Address [address] [place] [address] Assessment No assessment recorded. Plan of Treatment Reminders Order Date Submit Date Provider Last Modified By Organization Details Last Modified Time Details Appointments None recorded. Lab urinalysis complete, reflex culture 2024 [facility], [address] [place] [address], [address], 11:51:34 CBC w/ auto diff 2024 [facility], [address] [place] [address], 47776, 12:12:09 CMP, serum or plasma 2024 025 [facility], [address] [place] [address], 06724, 12:12:09 magnesium, serum or plasma 2024 025 [facility], [address] [place] [address], 62958, 11:51:34 hemoglobin A1c, QN, blood 2023 024 [facility], [address] [place] [address], 69078, 4 11:47:45 ESR (erythrocy te sedimentat ion rate), blood 2023 024 [facility], [address] [place] [address], 85422, 4 11:47:45 C reactive protein, QN, serum or plasma 2023 [facility], [address] [place] [address], 44842, 4 11:47:44 amylase + lipase, serum 2023 [facility], [address] [place] [address], 69492, 4 11:47:44 CMP, serum or plasma 2023 [facility], [address] [place] [address], 52865, 4 11:47:44 gamma-glut amyl transferas e (ggt), serum 2023 [facility], [address] [place] [address], 07842, 4 15:52:32 iron + TIBC + ferritin, serum 2023 [facility], [address] [place] [address], 18206, 4 11:47:44 TSH + free T4, serum 2023 024 [facility], [address] [place] [address], 77775, 4 11:47:44 vitamin B12 + folate, serum or blood 2019 020 [facility], [address] [place] [address], 65880, 0 11:45:50 CBC 2019 [facility], [address] [place] [address], 96289, 0 11:45:50 TSH + free T4, serum 2019 [facility], [address] [place] [address], 43845, 0 11:45:50 CMP, serum or plasma 2019 020 [facility], [address] [place] [address], 92574, 0 11:45:50 erythrocyt e sedimentat ion rate by westergren method 2019 [facility], [address] [place] [address], 10423, 0 11:45:50 iron + TIBC + ferritin, serum 2019 020 [facility], [address] [place] [address], 54101, 0 11:45:50 vitamin B12, serum 2019 [facility], [address] [place] [address], 21755, 0 12:03:49 TSH, serum or plasma 2019 020 [facility], [address] [place] [address], 72789, 0 12:09:33 CMP, serum or plasma 2019 020 [facility], [address] [place] [address], 37345, 0 12:03:49 CBC w/ auto diff 2019 [facility], [address] [place] [address], 38314, 0 12:03:50 TSH + T4, serum 2019 020 [facility], [address] [place] [address], 76586, 0 12:03:50 vitamin D, 25-hydroxy , total, serum 2019 020 [facility], [address] [place] [address], 60885, 0 12:03:50 iron + TIBC + ferritin, serum 2019 020 [facility], [address] [place] [address], 72810, 0 12:09:33 Referral ophthalmol ogist referral 2023 024 [facility], [address] [place], [address], 4 08:10:35 gastroente rologist referral 2023 024 [facility] Darinel Enciso MD, [address] [place] [address], [address], 4 09:07:41 Procedures None recorded. Surgeries None recorded. Imaging XR, chest, 2 view 2024 025 [facility], [address] [place] [address], [address], 5 08:35:25 CT, head, w/o contrast 2023 024 [facility], [address] [place] [address], 485[address], 4 09:59:10 US, echocardio gram 2023 024 [facility], [address] [place], [address], 4 08:19:17 RF, upper gastrointe stinal tract, w/ contrast PO 2023 024 [facility], [address] [place], [address], 4 08:18:46 LDCT, chest, for lung cancer screening - smoking for 59 years, started at [age], half a pack a day every day 2023 024 [facility], [address] [place], [address], 4 09:59:10 CT, abdomen + pelvis, w/wo contrast 2020 021 [facility] (Imaging), [address] [place], [address], 1 08:59:31 MRI, brain, w/o contrast 2019 020 [facility], [address] [place] [address], [address], 0 10:57:54 US, echocardio gram, transthora cic, complete 2019 020 [facility], [address] [place], [address], 1 12:10:02 Medication Orders prednisone 10 mg tablet 2020 021 [id number], [address] [facility] [place], [id number], 1 11:16:22 Patient TargetsNo targets recorded. Patient Instructions Encounter Date Encounter Id Patient Instructions Last Modified By Organization Details Last Modified Time 01/03/2020 [id number] learning about mood disorders [email or web address] Not available 01/03/2020 11:40:21 Reason for Referral Aerosol Supervisor Referral for Abdominal pain significant bowel change and increasing abdominal pain Referring Physician: Liv Barton, Internal Medicine, Encounter Date: 05/23/2023 Cheesemaker Helper Referral for Blurring of visual image visual distrubance with floaters and lights flashing Referring Physician: Liv Barton, Internal Medicine, Encounter Date: 05/23/2023 Results Created Date Observation Date Name Description Value Unit Range Abnormal Flag Note LastModifiedBy Organization Detail LastModifiedTime 03/06/19 21 03/06/2020 US, echoc ardio gram, trans thora cic, compl ete No observ ation record ed. [address] (Medical Records) [address] [place], [address], 03/07/2020 16:18:02 03/09/19 21 03/08/2020 MRI, brain , w/o contr ast No observ ation record ed. [facility] (Medical Records) [address] [place] [address], [address], 03/13/2020 09:52:33 03/23/19 21 03/23/2020 LDCT, chest , for lung cance r scree darlene No observ ation record ed. [address] [facility] [address] [place], [address], 03/24/2020 08:38:23 03/24/19 21 03/23/2020 LDCT, chest , for lung cance r scree darlene No observ ation record ed. [facility] [address] [place] [address], [address], 03/24/2020 16:21:33 03/27/19 21 03/24/2020 MR, angio gram, brain , w/wo contr ast No observ ation record ed. [facility] (Medical Records) [address] [place], [address], 03/31/2020 13:43:51 05/11/19 21 05/10/2020 CT, abdom en + pelvi s, w/wo contr ast No observ ation record ed. [email or web address] [facility] (Medical Records) [address] [place], [address], 05/12/2020 15:17:54 08/03/19 21 08/01/2020 CT, abdom en + pelvi s, w/wo contr ast No observ ation record ed. [facility] Central Scheduling [address] [place], [address], 08/04/2020 08:54:53 06/19/19 24 06/19/2023 CT, head, w/o contr ast No observ ation record ed. [email or web address] Central Scheduling [address] [place], [address], 06/20/2023 08:42:11 06/30/19 24 06/30/2023 US, [facility] ardio gram No observ ation record ed. [email or web address] [facility] (Medical Records) [address] [place], [address], 07/01/2023 08:38:27 07/23/19 24 07/04/2023 CT, head, w/o contr ast No observ ation record ed. [email or web address] (Medical Records) [address] [place], [address], 07/25/2023 11:56:15 08/08/19 24 07/18/2023 CT, angio gram, chest , w/o contr ast No observ ation record ed. [email or web address] [facility] (Medical Records) [address] [place], [address], 08/11/2023 08:25:06 11/09/19 25 11/08/2024 CT, head + brain , w/o contr ast No observ ation record ed. [facility] (Medical Records) [address] [place], [address], 11/08/2024 14:51:14 11/09/1911/08/2024 XR, chest No observ ation record ed. [facility] (Medical Records) [address] [place], [address], 11/08/2024 14:50:50 11/09/1911/08/2024 XR, chest , 2 view No observ ation record ed. [facility] (Medical Records) [address] [place], [address], 11/09/2024 08:22:40 11/12/1911/11/2024 XR, chest , 2 view No observ ation record ed. [facility] (Medical Records) [address] [place], [address], 11/12/2024 08:40:08 Result Notes None recorded. Problems Name Problem SNOMED Code Status Onset Date Resolution Date Notes Provider Name and Address Organization Details Recorded Time Impaired fasting glycemia 785778276 Completed 201701/13/2018 Leticia Carson NP, S [address] [place] [address], [address], [facility] 8 08:36:28 Tobacco dependen ce syndrome 48399938 Active 2017 Cindy mcneill [facility] 8 14:44:48 Anxiety 29165213 Active 2017 Cindy mcneill [facility] 8 14:44:55 Depressi ve disorder 98018366 Active 2017 Cindydeandre mcneill [facility] 8 14:45:01 Lower gastroin testinal hemorrha ge 26666690 Active 2019 Neptali Amador DO [address] [facility], [place], [address], [facility] 0 11:34:36 Epigastr ic pain 78395737 Active 2023 [facility] [address] [place] [address], [address], [facility] 4 15:34:14 Abdomina l pain 28637523 Active 2023 [facility] [address] [place] [address], [address], [facility] 4 15:35:59 Blurring of visual image 969320814 Active 2023 [facility] [address] [place] [address], [address], [facility] 4 15:38:49 Headache 49083855 Active 2023 [facility] [address] [place] [address], [address], [facility] 4 15:43:22 Smoker 02152512 Active 2023 [facility] [address] [place] [address], [address], [facility] 4 15:51:25 Acute urinary tract infectio n 636918061 Active 2024 [facility] [address] [place] [address], [address], [facility] 5 12:26:14 Sepsis due to urinary tract infectio n 403792958 Active 2024 [facility] [address] [place] [address], [address], [facility] 5 09:02:20 Pneumoni a 750826871 Active 2024 [facility] [address] [place] [address], [address], [facility] 5 09:02:28 Hypokale barby 10288512 Active 2024 [facility] [address] [place], [address], [facility] 5 09:02:44 Paroxysm al atrial fibrilla tion 794890463 Active 2024 [facility] [address] [place], [address], [facility] 5 09:02:53 Atrial fibrilla tion 26427396 Active 2024 [facility] [address] [place], [address], [facility] 5 09:02:58 Problem Notes None recorded. Procedures Surgical History Date Name Laterality Status Provider Name and Address Organization Details Recorded Time Partial Hysterectomy completed Leticia Carson NP, S [address] [place], [address], [facility] 01/12/2018 09:54:15 Imaging Results None recorded. Procedure Notes None recorded. Medical Equipment None Reported. Allergies Allergen ID Allergen Name Allergen Category Reaction Reaction Severity Criticality Documentation Date Start Date Code Code System Note Provider Name and Address Organization Details Recorded Time 9175 Substance with sulfonami de structure and antibacte rial mechanism of action (substanc e) medicatio n nausea vomiting Not available Not available low 09/03/2024 76866 8003 SNOMED Abigail Guillermo [facility] 13:52:27 Medications Name Sig Start Date Stop Date Status Note LastModified by Organization Details LastModified Time amoxicillin 500 mg capsule TAKE 1 CAPSULE BY MOUTH EVERY 8 HOURS FOR 7 DAYS 05/22 completed Not Available Not Available Not Available prednisone 10 mg tablet 5 tabs x 2 days 4 tabs x 2 days 3 tabs x 2 days 2 tabs x 2 days 1 tab x 2 days 09/20 completed Not Available Not Available Not Available ibuprofen 800 mg tablet 05/22 completed Not Available Not Available Not Available phenazopyri dine 200 mg tablet TAKE 1 TABLET BY MOUTH THREE TIMES DAILY FOR 2 DAYS 05/22 completed Not Available Not Available Not Available metronidazo le 500 mg tablet 07/20 completed Not Available Not Available Not Available chlorthalid one 25 mg tablet TAKE 1 TABLET BY MOUTH DAILY 11/23 completed Not Available Not Available Not Available sulfamethox azole 800 mg-trimetho prim 160 mg tablet TAKE 1 TABLET BY MOUTH EVERY 12 HOURS FOR 7 DAYS 11/23 completed Not Available Not Available Not Available tramadol 50 mg tablet 07/20 completed Not Available Not Available Not Available amoxicillin 500 mg tablet TAKE 1 TABLET BY MOUTH EVERY 8 HOURS FOR 7 DAYS 05/22 completed Not Available Not Available Not Available alprazolam 0.5 mg tablet TAKE 1 TABLET BY MOUTH EVERY MORNING active Not Available Not Available No t Available amoxicillin 875 mg tablet TAKE 1 TABLET BY MOUTH EVERY 12 HOURS FOR 7 DAYS 11/23 completed Not Available Not Available Not Available potassium chloride ER 20 mEq tablet,exte nded release(par t/cryst) active Not Available Not Available Not Available meclizine 25 mg tablet TAKE 1 TABLET BY MOUTH THREE TIMES DAILY NEEDED FOR DIZZINESS 11/23 completed Not Available Not Available Not Available phenazopyri dine 100 mg tablet TAKE 1 TABLET BY MOUTH THREE TIMES DAILY NEEDED FOR PAIN 05/22 completed Not Available Not Available Not Available ibuprofen 600 mg tablet TAKE 1 TABLET BY MOUTH EVERY 6 HOURS FOR 5 DAYS 05/22 completed Not Available Not Available Not Available cefuroxime axetil 500 mg tablet TAKE 1 TABLET BY MOUTH TWICE DAILY FOR 7 DAYS 11/23 completed Not Available Not Available Not Available levofloxaci n 500 mg tablet 07/20 completed Not Available Not Available Not Available bupropion HCl XL 300 mg 24 hr tablet, extended release TAKE 1 TABLET BY MOUTH EVERY MORNING active Not Available Not Available No t Available metoprolol tartrate 25 mg tablet TAKE 1/2 TABLET BY MOUTH 2 TIMES DAILY active Not Available Not Available No t Available desvenlafax ine succinate ER 50 mg tablet,exte nded release 24 hr TAKE 1 TABLET BY MOUTH EVERY MORNING active Not Available Not Available No t Available Eliquis 5 mg tablet Take 1 tablet twice a day by oral route. active Not Available Not Available No t Available [employer]flex COVID-19 Antigen Home Test kit TEST DIRECTED TODAY 05/22 completed Not Available Not Available Not Available Vitals Date Recorded Body height Body mass index (BMI) Body weight Body temperature Heart rate Oxygen saturation Systolic And Diastolic Provider Name and Address Organization Details Last Updated DateTime 1 177.17 cm 23.9 kg/m2 70701.1 g 96 [degF] 66 /min 96 % 124/84 mm[Hg] Leticia Givens [facility] 1 10:47:04 Date Recorded Body height Body mass index (BMI) Body weight Heart rate Oxygen saturation Systolic And Diastolic Provider Name and Address Organization Details Last Updated DateTime 4 176.53 cm 23.4 kg/m2 29308.0 1 g 90 /min 99 % 120/72 mm[Hg] Harvey Cruzin [facility] 4 15:27:44 Date Recorded Body height Body mass index (BMI) Body weight Heart rate Oxygen saturation Systolic And Diastolic Provider Name and Address Organization Details Last Updated DateTime 5 175.26 cm 23.6 kg/m2 79855.7 8 g 88 /min 98 % 120/70 mm[Hg] Chloe Delgadillo [facility] 5 11:30:57 Date Recorded Body weight Heart rate Oxygen saturation Systolic And Diastolic Provider Name and Address Organization Details Last Updated DateTime 01/03/2020 32771.76 g 107 /min 96 % 140/86 mm[Hg] Neptali Amador, DO [address] [place] [address], [place], [address], [facility] 0 11:00:30 Date Recorded Body height Body mass index (BMI) Body weight Body temperature Heart rate Oxygen saturation Systolic And Diastolic Provider Name and Address Organization Details Last Updated DateTime 0 177.17 cm 24 kg/m2 10709.6 9 g 96 [degF] 106 /min 98 % 124/70 mm[Hg] Cecy Siegel [facility] 0 13:50:43 Social History Question Answer Notes LastModified by Organizat ion Details LastModified Time Tobacco Smoking Status Current Every Day Smoker Not Available [facility] 12/21/2019 03:36:23 What Was The Date Of Your Most Recent Tobacco Screening? 11/23/2024 [email or web address] Information not available 11/23/2024 How Much Tobacco Do You Smoke? 0.25 PPD [email or web address] Information not available 05/23/2023 Sex: Unknown Functional Status None recorded. Mental Status None recorded. Family History Nothing Reported. Medical History No medical history recorded. Gynecological HistoryNo gynecological history recorded. Obstetrics History GPAL:G 0 P 0 0 0 0 Past Encounters Encounter ID Performer Location Encounter Start Date Encounter Closed Date Diagnosis/Indication Diagnosis SNOMED-CT Code Diagnosis ICD10 Code Diagnosis IMO Codes Diagnosis Note [id number] Neptali Amador [facility] [address] [facility] [address] 01/12/2018 09:18:31 01/12/2018 16:14:33 Ingrowing nail 793446447 L60.0 Calcific t endinitis of shoulder 47062227 M75.31 Impaired f asting glycemia 941796318 R73.01 Anxiety 68970224 F41.9 Hypercholesterolemia 136 25124 E78.00 Screening procedure 2012 5006 Z13.9 Tobacco de pendence syndrome 21533503 F17.200 [id number] Neptali Amador [facility] [address] [place] [address] 03/16/2018 10:13:26 03/16/2018 15:21:22 Ingrowing nail 445956739 L60.0 Calcific t endinitis of shoulder 73913928 M75.31 will f/u with phone call to P.T. Depressive disorder 3343 3326 F33.8 continue meds/thera py with psychiatry [id number] [address] 06/30/2019 10:19:01 06/30/2019 12:23:20 Anxiety 16681100 F41.9 meds are stabel and no new rx Depressive disorder 4003 9006 F32.9 denies any issues [id number] Neptali Amador [facility] [address] [address] 07/07/2019 11:38:57 07/07/2019 13:32:06 Acute ulcerative colitis 678712456 K51.90 will; need referral to GI for colonoscop y [id number] Neptali Amador [facility] [address] [facility] [place] [address] 07/21/2019 13:38:27 07/21/2019 14:35:15 Acute ulcerative colitis 156971673 K51.90 will; need referral to GI for colonoscop y [id number] Neptali Amador [facility] [address] [facility] [address] 01/03/2020 10:38:34 01/03/2020 11:46:29 Depressive disorder 69554923 F32.9 relates that she has had for years and is seeing a speialist i have told her to try one of the new meds and to ask her therapist for this Anxiety 39311182 F41.9 meds are stable and no new rx as above Flatulent dyspepsia 2495 21874 K30 long discuss re dairy and need some probiltics etc Fatigue 81545970 R53.83 Lower gastrointestinal hemorrhage 51264312 K92.2 was told she had ulcerative colitis after bleeding for several days and seen on CT scan had colonoscop y which was negative but was a month after the bleed is currently stable will be seeing GI later this week [id number] Neptali Amador [facility] [address] [facility] [place] [address] 02/07/2020 13:39:37 02/07/2020 14:48:20 Lethargy 327992019 R53.83 severe sudden episode without sequelae but intense enough to cause serious concern with pt unknown etiology will need w/u Dyspnea on exertion 6084 5006 R06.09 will need to assess ventricles New daily persistent headache 1453652930 96123 G44.52 new onset severe headache with episode of complete immobility [id number] Neptali Amador [facility] [address] [facility] [place] [facility] [address] 02/22/2020 10:28:40 02/22/2020 12:30:42 Low back pain 636521785 M54.5 may be related to her colitis and no MSK in nature patient needs a CT to evaluate if possible current inflammati on of her colon/dive rt to treat appropriat frederick Abdominal pain 03456008 R10.9 will try to r/in, r/o abdominal, intestinal cause and fu after image Colitis 61202596 K52.9 does have a hx of divert so she be assessed for current infection [id number] Neptali Romeo Marjorie [facility] [address] [facility] [address] 05/23/2023 15:08:10 05/23/2023 16:12:23 Anxiety 21053655 F41.1 stable Epigastric pain 98535021 R10.13 agreed to UGI and US echo Abdominal pain 95876999 R10.0 will set up with GI Blurring o f visual image 612277474 H53.8 agreed to eye referral Headache 61081928 R51.[address] for fu for monitoring Smoker 01238762 F17.200 Atypical chest pain 1025 84632 R07.89 [id number] Neptali Romeo Marjorie [facility] [address] [facility] [address] 11/23/2024 11:20:45 11/23/2024 11:59:07 Sepsis due to urinary tract infection 676908552 A41.9 N39.0 9027960 will set up with recheck lab work Pneumonia 464827482 J18. 9 [id number] will set up with repeat f/u CXR Hypokalemia 75327231 E87 .6 [id number] will set up with CMP for K+ recheck and also check her mag level Paroxysmal atrial fibrillation 512266236 I48.0 [id number] is going to talk to cardio about next steps for Atrial fibrillation 8963 6004 I48.91 513975 currently on eliquis 5 mg BIDhas enough for awhile until at least she sees cardiology Health Concerns Section Related Observation LastModified by Organization Detai ls LastModified Time None Recorded Concern Status LastModified by Organization Details LastModified Time None Recorded Advance Directives Directive None Recorded Payers Insurance Date Sequence Insurance Name Policy Number Policy Slade Covered Member ID Slade Member ID Guarantor Name 01/23/2025 1 [place] [employer] Esme Alfonso [id number] Esme Alfonso 11/23/2024 2 [place] [facility] Esme Alfonso [id number] Esme Alfonso 01/12/2018 1 *SELF PAY* Anuradha Alfonso 11/23/2024 2 [place] [facility] PRIOR TO 05/18/2022 - [facility] (MEDICAID) Esme Alfonso [id number] Esme Alfonso Notes Date Note Type Note Provider Name a nd Address Organization Details Recorded Time 01/03/2020 text/html ROS as noted in the HPI here for rechk of GI issues and fatigue relates having issues with incont as well of fecal is very fatigued and is not eating as much as she had been wgt has dropped a little using probiotic with good results Neptali Amador DO [address] [place] [address], [address], [facility] 01/03/2020 11:43:39 02/07/2020 text/html ROS as noted in the HPI here for check up and states that she has been about the same except she had one episode in the late am in her chair that she developed a severe fatigue and sl dizziness so much so that she could not get up relates that she stayed in her chair and these sx passed on in a few min have not returned no further episodes also no further bleeding episodes GI has her on a specific diet and more frequent small meals Neptali Amador DO [address] [place], [address], [facility] 02/07/2020 14:48:08 02/22/2020 text/html ROS as noted in the HPI c/o back pain the patient reports that she has been having back pain, reports it started when she was getting out of bed at night to go to the bathroom the patient reports that the pain started below her waist, low back now has spread to her right side from right side of the back and hip the patient reports that she got a colonoscopy in June due to the fact she had hematochezia (BRPR) the patient reports that since then she has seen GI, the patient reports that she was diagnosed colitis no other treatment given the patient reports that she has been having loss stool and watery diarrhea the patient also endorses she has been having headaches may be due to dehydration if losing fluid no fever, no chills, no cough, no chest pain, no fatigue, no sore throat [facility] [address] [place], [address], [facility] 02/22/2020 11:16:06 05/23/2023 text/html ROS as noted in the HPI the patient is having epigastric painER work up was negativeagreed to additional screenings for her to r/o GI vs cardiac etiology visual changes, need eval with eye docalso apparently had an aneurysm that needed to be monitored? not sure, no record but will have her fu with repeat imaging needs lab work, is over due possible lung complication causing the chest pain though symptom presentation makes it less likely [facility] [address] [place], [address], [facility] 05/23/2023 15:52:48 11/23/2024 text/html ROS as noted in the HPI hospital d/c the patient presented originally to the ER with a compliant of malaise and feeling odd she was developing weakness, dizziness, nausea and loss of appetiteno fever or chills per patientno recent UTI symptoms since treating her August pt had a temp of 102.9 F with elevated WBC and hypokalemia start on ceftriaxone IV and potassium IV admitted to floor for monitoring she was admitted for sepsis related to (e. coli) UTIshe was also diagnosed with pna (likely related to septic infection)as well as developing new onset afib which will be monitored by cardio > her echo was normal with no significant heart strain and she converted to NSR with introduction of metoprolol she was started on eliquis 5 mg BID as well as metoprolol for better rate control was d/c stablewill need f/u lab work as directed the pt is still feeling really tired which is normalmay need an alt to metoprolol if it's causing the abd pain and drowsiness [facility] [address] [place], [address], [facility] 11/23/2024 11:57:40 OBGyn Episode No OBEpisode recorded.
--- OUTSIDE RECORDS SUMMARY | 2025-02-08 14:17 | XMS_ITS | Encounter Summary ---
Author Organization [facility] Address [address] [facility] [address] [place] [address] Phone Care Team Providers Care Sidewalk Inspector Name Role Phone Neptali Amador DO Primary Care Provider [phone] Encounter Details Date Type Department Care Team (Late st Contact Info) Description 08/26/2019 Procedure Pass [facility] Endoscopy Admitting Dept Virtual Department [address] [place] [address] Social History Tobacco Use Types Packs/Day Years [...] on filedocumented in this encounter Care Teams Sidewalk Inspector Relationship Specialty Start Date End Date Neptali Amador DO PCP - General 12/03/16 documented as of this encounter Additional Source Comments The information contained in this document represents components of the legal health record. It is not the complete legal health record.[facility]
--- OUTSIDE RECORDS SUMMARY | 2025-02-08 14:17 | XMS_ITS | Encounter Summary ---
Author Organization [facility] Address [address] [place] [address] Care Team Providers Care Turnstile Attendant Name Role Phone Neptali Amador DO Primary Care Provider [phone] Encounter Details Date Type Department Care Team (Late st Contact Info) Description 06/01/2020 Scanned Document [facility] Neurosurgery [address] [address] Max Christie MD [address] [place] [address] Social History Tobacco Use Types Packs/Day Years [...] on filedocumented in this encounter Care Teams Turnstile Attendant Relationship Specialty Start Date End Date Neptali Amador DO [address] [facility] [address] [place] [address] PCP - General 04/25/20 documented as of this encounter
--- OUTSIDE RECORDS SUMMARY | 2025-02-08 14:17 | XMS_ITS | Encounter Summary ---
Author Organization [facility] Address [address] [place] [address] Phone Care Team Providers Care Radiology Transporter Name Role Phone Neptali Amador DO Primary Care Provider [phone] Neptali Amador DO Unavailable Reason for Referral * Physical Therapy (Routine) - Closed Specialty Diagnoses / Procedures Referred By Hailey lopez Referred To Contact Physical Therapy Diagnoses Encounter for rehabilitation Leticia Carson CNP Phone: tel: fax: [email or web address] [facility] [address] [place] [address] Phone: tel: Referral ID Status Reason Start Date Expiration Date Visits Re quested Visits Authorized [id number] Closed 04/16/2018 02/16/2019 16 16 Encounter Details Date Type Department Care Team (Late st Contact Info) Description 03/16/2018 Transcribe Orders [facility] [address] [place] [address] Neptali Amador DO [address] [facility] [place] [address] [email or web address] Encounter for rehabilitation (Primary Dx) Social History [...] Diagnoses Orde r Schedule Ambulatory referral to [facility] Physical Therapy Outpatient Referral Routine Encounter for rehabilitation Ordered: 03/16/2018 documented as of this encounter Visit Diagnoses Diagnosis Encounter for rehabilitation- Primary documented in this encounter Care Teams Radiology Transporter Relationship Specialty Start Date End Date Neptali Amador DO [email or web address] PCP - General 12/03/16 Neptali Amador DO [address] [place] [address] [email or web address] Insurance Assigned Provider 04/18/1801/23 documented as of this encounter Additional Source Comments The information contained in this document represents components of the legal health record. It is not the complete legal health record.[facility]
--- OUTSIDE RECORDS SUMMARY | 2025-02-08 14:17 | XMS_ITS | Clinical Summary ---
Author Organization [facility] Address [address] [place] [address] Care Team Providers Care Skull Splitter Name Role Phone Neptali Amador DO Primary Care Provider [phone] Allergies No known active allergies Medications ALPRAZolam [...] TABLET BY MOUTH EVERY MORNING Active Multiple Vitamins-Reverse Unit Operator als (Vitrum Senior) Tab Take 1 tablet [...] Influenza Vaccine 09/17/2024 COVID-19 Vaccine ( - 2024-2 6 season) 2024 RSV Vaccine 50 years and old er and Patients (1 - 1-dose 75+ series) 2028 Hepatitis B Vaccines Aged Out No long er eligible based on patient's age to complete this topic Insurance MEDICARE PART A & B Member Subscriber Plan / Payer (Ef fective 2018-Present) Name:Esme Alfonso Member ID:[id number] Relation to Subscriber:Self Name:Esme Alfonso Subscriber ID:[id number] Payer ID:[id number] Group ID:Not on file Type:Not on file Address: [facility] [address] [id number] MEDICAID OUT OF STATE [facility] [address] [place] [address] Care Teams Skull Splitter Relationship Specialty Start Date End Date Neptali Amador DO [address] [facility] [place] [address] PCP - General 04/25/20
--- OUTSIDE RECORDS SUMMARY | 2025-02-08 14:17 | XMS_ITS | Continuity of Care Document ---
Author Organization [facility] Address [address] [facility] [place] [address] [place] [address] Assessment No assessment recorded. Plan of Treatment Reminders Order Date Submit Date Provider Last Modified By Organization Details Last Modified Time Details Appointments None recorded. Lab urinalysis complete, reflex culture 2024 [facility], [address] [place] [address], [id number], 11:51:34 CBC w/ auto diff 2024 [facility], [address] [place] [address], [address], 12:12:09 CMP, serum or plasma 2024 025 [facility], [address] [place] [address], [address], 12:12:09 magnesium, serum or plasma 2024 025 [facility], [address] [place] [address], [address], 11:51:34 Referral None recorded. Procedures None recorded. Surgeries None recorded. Imaging XR, chest, 2 view 2024 [facility], [address] [place] [address], [place], [address], 08:35:25 Medication Orders None recorded. Patient TargetsNo targets recorded. Patient InstructionsNo instructions recorded. Reason for Referral None Reported. Results Created Date Observation Date Name Description Value Unit Range Abnormal Flag Note LastModifiedBy Organization Detail LastModifiedTime 11/09/1911/08/2024 CT, head + brain , w/o contr ast No observ ation record ed. [facility] (Medical Records) [address] [place], [address], 11/08/2024 14:51:14 11/09/1911/08/2024 XR, chest No observ ation record ed. [facility] (Medical Records) [address] [place], [address], 11/08/2024 14:50:50 11/09/1911/08/2024 XR, chest , 2 view No observ ation record ed. [facility] (Medical Records) [address] [place], [address], 11/09/2024 08:22:40 11/12/1911/11/2024 XR, chest , 2 view No observ ation record ed. [facility] (Medical Records) [address] [place], [address], 11/12/2024 08:40:08 Result Notes None recorded. Problems Name Problem SNOMED Code Status Onset Date Resolution Date Notes Provider Name and Address Organization Details Recorded Time Impaired fasting glycemia 157437868 Completed 201701/13/2018 Leticia Carson NP, [address] [facility], [place], [address], [facility] 8 08:36:28 Tobacco dependen ce syndrome 49697662 Active 2017 Cindy mcneill [facility] 8 14:44:48 Anxiety 41452255 Active 2017 Cindy mcneill [facility] 8 14:44:55 Depressi ve disorder 62172152 Active 2017 [facility] [place] 8 14:45:01 Lower gastroin testinal hemorrha ge 82872780 Active 2019 Neptali Amador DO [address] [place], [address], [facility] 0 11:34:36 Epigastr ic pain 59478591 Active 2023 [facility] [address] [place], [address], [facility] 4 15:34:14 Abdomina l pain 19780583 Active [address] [facility] [address] [place] [address], , [facility] 4 15:35:59 Blurring of visual image 023764709 Active 2023 [facility] [address] [place] [address], [address], [facility] 4 15:38:49 Headache 97542367 Active 2023 [facility] [address] [place] [address], [address], [facility] 4 15:43:22 Smoker 79068757 Active 2023 [facility] [address] [place] [address], [address], [facility] 4 15:51:25 Acute urinary tract infectio n 240765891 Active 2024 [facility] [address] [place] [address], [address], [facility] 5 12:26:14 Sepsis due to urinary tract infectio n 194201466 Active 2024 [facility] [address] [place], [address], [facility] 5 09:02:20 Pneumoni a 090629608 Active 2024 [facility] [address] [place], [address], [facility] 09:02:28 Hypokale barby 32052615 Active 2024 [facility] [address] [place], [address], [facility] 09:02:44 Paroxysm al atrial fibrilla tion 572910549 Active 2024 [facility] [address] [place], [address], [facility] 09:02:53 Atrial fibrilla tion 11373003 Active 2024 [facility] [address] [place], [address], [facility] 09:02:58 Problem Notes None recorded. Procedures Surgical History Date Name Laterality Status Provider Name and Address Organization Details Recorded Time Partial Hysterectomy completed Leticia Carson NP, [address] [place], [address], [facility] 01/12/2018 09:54:15 Imaging Results None recorded. Procedure [...] vomiting Not available Not available low 09/03/2024 36977 8003 [facility] 13:52:27 Medications Name Sig Start Date Stop [...] and Address Organization Details Last Updated DateTime 175.26 cm 23.6 kg/m2 95545.7 8 g 88 /min 98 % 120/70 mm[Hg] Chloe Delgadillo [facility] 11:30:57 Social History Question Answer Notes LastModified by Organizat ion Details LastModified Time Tobacco Smoking Status Current Every Day Smoker Not Available [facility] 12/21/2019 03:36:23 What Was The Date Of Your Most Recent Tobacco Screening? 11/23/2024 [email or web address] Information not available 11/23/2024 How Much Tobacco [...] ICD10 Code Diagnosis IMO Codes Diagnosis Note [id number] Neptali Amador [facility] [address] [facility],[place] [address] 11/23/2024 11:20:45 11/23/2024 11:59:07 Sepsis due to urinary tract infection 876048993 A41.9 N39.0 0846139 will set up with recheck lab work Pneumonia 567686117 J18. 9 [id number] will set up with repeat f/u CXR Hypokalemia 49994223 E87 .6 9791 will set up with CMP for K+ recheck and also check her mag level Paroxysmal atrial fibrillation 646433436 I48.0 3992438 is going to talk to cardio about next steps for Atrial fibrillation 0843 7248 I48.91 408251 currently on eliquis 5 mg BIDhas enough for awhile until at least she sees cardiology Health Concerns Section Related Observation LastModified by Organization Detai ls LastModified Time None Recorded Concern Status LastModified by Organization Details LastModified Time None Recorded Payers Encounter Date Sequence Insurance Name Policy Number Policy Slade Covered Member ID Slade Member ID Guarantor Name 11/23/2024 1 MEDICARE B-[place]: [employer] Esme Alfonso [id number] Esme Alfonso Notes Date Note Type Note Provider Name a nd Address Organization Details Recorded Time 11/23/2024 text/html ROS as noted in the [facility] hospital d/c the patient presented originally to [...] the abd pain and drowsiness [facility] [address] [place] [address], [place], [address], [facility] 11/23/2024 11:57:40 OBGyn Episode No OBEpisode recorded.
--- OUTSIDE RECORDS SUMMARY | 2025-02-08 14:18 | XMS_ITS | Patient Health Record ---
Author Organization [facility] Address [address] [facility] [place] [address] Care Team Providers Care Spring Winder Name Role Phone Neptali Amador MD Primary Care Provider Raad Reyes Unavailable [phone] Allergies No Known Allergies Reason For Referral [...] W/U Status Risk Notes Problem Ingrowing nail (109724565) Ingrowing nail (L60.0) Active confirmed Plan Of Treatment No Information Insurance Providers Payer Name Payer Address Payer Phone Subscriber Number Group Number Insured Name Patient Relationship to Insured Coverage Start Date Coverage End Date Medicare National [employer] [address] [place] [address] [id number] Esme Alfonso Self - patient is the insured Medical (General) History Medical History History ICD Code Anxiety Broken bones Colitis Crohns disease Depression Diverticulosis Headaches/Migraines Measles Chicken pox Scarlet fever high blood pressure Surgical History Surgery Date(Month/Year)
== END ==
LOC: HO.CARD 13:09
PROVIDERS: PCP Internal Medicine
DX: I48.0 Paroxysmal atrial fibrillation (principal)
CPT/HCPCS: 93242

== ENCOUNTER → 2025-02-08 13:12 | Outpatient (BNV) | payer MEDICARE, SELFPAY | PROVIDERS: PCP Internal Medicine; Visit Provider Internal Medicine | DX: I49.49 Other premature depolarization (principal) | CPT/HCPCS: 93244 ==